=== PATIENT | female | born 1950 | race Caucasian/White ===

== ENCOUNTER 2017-11-17 09:00 | Day surgery (SDC) | payer OTHER ==
[~2017-11-17 09:00] MED LIST: ALBU90OI INH; ALLO100 PO; AMIT25 PO; AMOCLA500 PO; ASPI81CH PO; ASPI81EC PO; ATOR40TA PO; Ativan1 MG PO; CIPR500 PO; CLON.5 PO; CLON1 PO; CODBUTACEC PO; CODGUAEL PO; COLC.6 PO; Cephalexin500 MG PO; Cyclobenzaprine5 MG PO; DOCU100 PO; ERGO400 PO; FENO48 PO; FISH1000 PO; HYDACE10B PO; HYDACE5 PO; HYDACE5325 PO; HYDCHL25 PO; IBUP800 PO; INDO50 PO; ISOMON30 PO; LISI10 PO; METO25ER PO; METO50 PO; MULVITA PO; MULVITMIND PO; Mucinex600 MG PO; NITR.3SL SL; Norco 5-325 Ta1 EACH PO; OLAN7.5 PO; Omeprazole20 M1 PO; POTCHL20ER PO; PRAV20 PO; Prednisone20 MG PO; RANI150 PO; RXLORA1 PO; RXPHEN200 PO; SULTRIDS PO; TRAM50 PO; Zithromax250 MG PO; Zofran Odt4 MG SL
[2018-03-14] MEDS ORDERED: CEPH500 PO (20:35)
[2018-03-14] MEDS ORDERED: Zofran Odt4 MG PO (20:41)
== END 2017-11-17 11:58 | disposition home or self-care (01) ==
LOC: WOUND 09:00
PROC: 2W1RX6Z Compression of Left Lower Leg using Pressure Dressing (ICD-10-PCS; principal; 2017-11-17)
DX: Z48.00 Encounter for change or removal of nonsurgical wound dressing (principal); S81.809A Unspecified open wound, unspecified lower leg, initial encounter; I10 Essential (primary) hypertension; I73.9 Peripheral vascular disease, unspecified
CPT/HCPCS: G0463

== ENCOUNTER 2017-11-24 09:00 | Day surgery (SDC) | payer OTHER ==
[2018-03-14] MEDS ORDERED: CEPH500 PO (20:35)
[2018-03-14] MEDS ORDERED: Zofran Odt4 MG PO (20:41)
== END 2017-11-24 23:00 | disposition home or self-care (01) ==
LOC: WOUND 09:00
PROC: 2W1RX6Z Compression of Left Lower Leg using Pressure Dressing (ICD-10-PCS; principal; 2017-11-24)
DX: Z48.00 Encounter for change or removal of nonsurgical wound dressing (principal); S81.809A Unspecified open wound, unspecified lower leg, initial encounter; I73.9 Peripheral vascular disease, unspecified; L97.822 Non-pressure chronic ulcer of other part of left lower leg with fat layer exposed; I10 Essential (primary) hypertension
CPT/HCPCS: G0463

== ENCOUNTER 2017-11-26 11:33 | Day surgery (SDC) | payer OTHER ==
[2018-03-14] MEDS ORDERED: CEPH500 PO (20:35)
[2018-03-14] MEDS ORDERED: Zofran Odt4 MG PO (20:41)
== END 2017-11-26 12:35 | disposition home or self-care (01) ==
LOC: WOUND 11:33
PROC: 2W1RX6Z Compression of Left Lower Leg using Pressure Dressing (ICD-10-PCS; principal; 2017-11-26)
DX: Z48.00 Encounter for change or removal of nonsurgical wound dressing (principal); S81.809A Unspecified open wound, unspecified lower leg, initial encounter; I10 Essential (primary) hypertension; I73.9 Peripheral vascular disease, unspecified

== ENCOUNTER 2017-12-01 09:00 | Day surgery (SDC) | payer OTHER ==
[2018-03-14] MEDS ORDERED: CEPH500 PO (20:35)
[2018-03-14] MEDS ORDERED: Zofran Odt4 MG PO (20:41)
== END 2017-12-01 14:53 | disposition home or self-care (01) ==
LOC: WOUND 09:00
PROC: 2W1RX6Z Compression of Left Lower Leg using Pressure Dressing (ICD-10-PCS; principal; 2017-12-01)
DX: Z48.00 Encounter for change or removal of nonsurgical wound dressing (principal); S81.809A Unspecified open wound, unspecified lower leg, initial encounter; I10 Essential (primary) hypertension; I73.9 Peripheral vascular disease, unspecified

== ENCOUNTER 2017-12-08 00:26 | Day surgery (SDC) | payer OTHER ==
[2018-03-14] MEDS ORDERED: CEPH500 PO (20:35)
[2018-03-14] MEDS ORDERED: Zofran Odt4 MG PO (20:41)
== END 2017-12-08 10:02 | disposition home or self-care (01) ==
LOC: WOUND 00:26
DX: Z48.00 Encounter for change or removal of nonsurgical wound dressing (principal); S81.809A Unspecified open wound, unspecified lower leg, initial encounter; I10 Essential (primary) hypertension; I73.9 Peripheral vascular disease, unspecified

== ENCOUNTER 2017-12-15 00:36 | Day surgery (SDC) | payer OTHER ==
[2018-03-14] MEDS ORDERED: CEPH500 PO (20:35)
[2018-03-14] MEDS ORDERED: Zofran Odt4 MG PO (20:41)
== END 2017-12-15 09:24 | disposition home or self-care (01) ==
LOC: WOUND 00:36
DX: Z48.00 Encounter for change or removal of nonsurgical wound dressing (principal); S81.809A Unspecified open wound, unspecified lower leg, initial encounter; I10 Essential (primary) hypertension; I73.9 Peripheral vascular disease, unspecified

== ENCOUNTER 2017-12-20 00:05 | Day surgery (SDC) | payer OTHER ==
[2017-12-20] MEDS ORDERED: LEVO750 PO (11:24)
[2018-03-14] MEDS ORDERED: CEPH500 PO (20:35)
[2018-03-14] MEDS ORDERED: Zofran Odt4 MG PO (20:41)
== END 2017-12-20 09:34 | disposition home or self-care (01) ==
LOC: WOUND 00:05
DX: Z48.00 Encounter for change or removal of nonsurgical wound dressing (principal); S81.809A Unspecified open wound, unspecified lower leg, initial encounter; I10 Essential (primary) hypertension; I73.9 Peripheral vascular disease, unspecified
CPT/HCPCS: G0463

== ENCOUNTER 2017-12-20 09:57 | Emergency (ER) | payer OTHER ==
[~2017-12-20] VITALS: Ht 157.5 cm; Wt 58.5 kg
[2017-12-20 11:05] LABS: Influenza A Negative (NEGATIVE); Influenza B Negative (NEGATIVE)
[2017-12-20] MEDS ORDERED: LEVO750 PO (11:24)
[2018-03-14] MEDS ORDERED: CEPH500 PO (20:35)
[2018-03-14] MEDS ORDERED: Zofran Odt4 MG PO (20:41)
== END 2017-12-20 11:27 | disposition home or self-care (01) ==
LOC: ER 09:57
PROVIDERS: Physician Assistant
DX: J44.1 Chronic obstructive pulmonary disease with (acute) exacerbation (principal); J18.9 Pneumonia, unspecified organism; I10 Essential (primary) hypertension; E78.00 Pure hypercholesterolemia, unspecified; F41.9 Anxiety disorder, unspecified; Z79.82 Long term (current) use of aspirin; Z79.899 Other long term (current) drug therapy; Z87.891 Personal history of nicotine dependence
CPT/HCPCS: 71046; 87804; 99283

== ENCOUNTER 2017-12-27 00:06 | Day surgery (SDC) | payer OTHER ==
[~2017-12-27 00:06] MED LIST changes: +LEVO750 PO
[2018-03-14] MEDS ORDERED: CEPH500 PO (20:35)
[2018-03-14] MEDS ORDERED: Zofran Odt4 MG PO (20:41)
== END 2017-12-27 09:41 | disposition home or self-care (01) ==
LOC: WOUND 00:06
PROC: 2W1RX6Z Compression of Left Lower Leg using Pressure Dressing (ICD-10-PCS; principal; 2017-12-27)
DX: Z48.00 Encounter for change or removal of nonsurgical wound dressing (principal); S81.809A Unspecified open wound, unspecified lower leg, initial encounter; I10 Essential (primary) hypertension; I73.9 Peripheral vascular disease, unspecified
CPT/HCPCS: G0463

== ENCOUNTER 2018-01-05 00:12 | Day surgery (SDC) | payer OTHER ==
[2018-03-14] MEDS ORDERED: CEPH500 PO (20:35)
[2018-03-14] MEDS ORDERED: Zofran Odt4 MG PO (20:41)
== END 2018-01-05 22:50 | disposition home or self-care (01) ==
LOC: WOUND 00:12
PROC: 2W1RX6Z Compression of Left Lower Leg using Pressure Dressing (ICD-10-PCS; principal; 2018-01-05)
DX: Z48.00 Encounter for change or removal of nonsurgical wound dressing (principal); S81.809A Unspecified open wound, unspecified lower leg, initial encounter; I10 Essential (primary) hypertension; I73.9 Peripheral vascular disease, unspecified
CPT/HCPCS: G0463

== ENCOUNTER 2018-01-12 09:08 | Day surgery (SDC) | payer OTHER ==
[2018-03-14] MEDS ORDERED: CEPH500 PO (20:35)
[2018-03-14] MEDS ORDERED: Zofran Odt4 MG PO (20:41)
== END 2018-01-12 22:38 | disposition home or self-care (01) ==
LOC: WOUND 09:08
PROC: 2W1RX6Z Compression of Left Lower Leg using Pressure Dressing (ICD-10-PCS; principal; 2018-01-12)
DX: S81.802A Unspecified open wound, left lower leg, initial encounter (principal); I10 Essential (primary) hypertension; I73.9 Peripheral vascular disease, unspecified
CPT/HCPCS: G0463

== ENCOUNTER 2018-01-14 00:06 | Day surgery (SDC) | payer OTHER ==
[2018-03-14] MEDS ORDERED: CEPH500 PO (20:35)
[2018-03-14] MEDS ORDERED: Zofran Odt4 MG PO (20:41)
== END 2018-01-14 23:09 | disposition home or self-care (01) ==
LOC: WOUND 00:06
PROC: 2W1MX6Z Compression of Left Lower Extremity using Pressure Dressing (ICD-10-PCS; principal; 2018-01-14)
DX: S81.802A Unspecified open wound, left lower leg, initial encounter (principal); I10 Essential (primary) hypertension; I73.9 Peripheral vascular disease, unspecified

== ENCOUNTER 2018-01-19 00:10 | Day surgery (SDC) | payer OTHER ==
[2018-03-14] MEDS ORDERED: CEPH500 PO (20:35)
[2018-03-14] MEDS ORDERED: Zofran Odt4 MG PO (20:41)
== END 2018-01-19 22:56 | disposition home or self-care (01) ==
LOC: WOUND 00:10
PROC: 2W1RX6Z Compression of Left Lower Leg using Pressure Dressing (ICD-10-PCS; principal; 2018-01-19)
DX: S81.802A Unspecified open wound, left lower leg, initial encounter (principal); I10 Essential (primary) hypertension; I73.9 Peripheral vascular disease, unspecified

== ENCOUNTER 2018-01-26 09:40 | Day surgery (SDC) | payer OTHER ==
[2018-03-14] MEDS ORDERED: CEPH500 PO (20:35)
[2018-03-14] MEDS ORDERED: Zofran Odt4 MG PO (20:41)
== END 2018-01-26 16:49 | disposition home or self-care (01) ==
LOC: WOUND 09:40
PROC: 2W1RX6Z Compression of Left Lower Leg using Pressure Dressing (ICD-10-PCS; principal; 2018-01-26)
DX: S81.802A Unspecified open wound, left lower leg, initial encounter (principal); I10 Essential (primary) hypertension; I73.9 Peripheral vascular disease, unspecified

== ENCOUNTER 2018-02-04 00:14 | Day surgery (SDC) | payer OTHER ==
[2018-03-14] MEDS ORDERED: CEPH500 PO (20:35)
[2018-03-14] MEDS ORDERED: Zofran Odt4 MG PO (20:41)
== END 2018-02-04 15:54 | disposition home or self-care (01) ==
LOC: WOUND 00:14
PROC: 2W1RX6Z Compression of Left Lower Leg using Pressure Dressing (ICD-10-PCS; principal; 2018-02-04)
PROC: 0H5LXZZ Destruction of Left Lower Leg Skin, External Approach (ICD-10-PCS; principal; 2018-02-04)
DX: Z48.00 Encounter for change or removal of nonsurgical wound dressing (principal); L97.822 Non-pressure chronic ulcer of other part of left lower leg with fat layer exposed; I10 Essential (primary) hypertension; I73.9 Peripheral vascular disease, unspecified
CPT/HCPCS: G0463

== ENCOUNTER 2018-02-09 10:43 | Day surgery (SDC) | payer OTHER | END 2018-02-09 12:09 | disposition home or self-care (01) | LOC: WOUND 10:43 | PROC: 2W1RX6Z Compression of Left Lower Leg using Pressure Dressing (ICD-10-PCS; principal; 2018-02-09) | DX: S81.802A Unspecified open wound, left lower leg, initial encounter (principal); I10 Essential (primary) hypertension; I73.9 Peripheral vascular disease, unspecified | CPT/HCPCS: G0463 ==

== ENCOUNTER 2018-02-17 01:18 | Day surgery (SDC) | payer OTHER | END 2018-02-17 22:51 | disposition home or self-care (01) | LOC: WOUND 01:18 | PROC: 2W1RX6Z Compression of Left Lower Leg using Pressure Dressing (ICD-10-PCS; principal; 2018-02-17) | DX: S81.802A Unspecified open wound, left lower leg, initial encounter (principal); I10 Essential (primary) hypertension; I73.9 Peripheral vascular disease, unspecified | CPT/HCPCS: G0463 ==

== ENCOUNTER 2018-02-22 07:57 | Day surgery (SDC) | payer OTHER | END 2018-02-22 08:54 | disposition home or self-care (01) | LOC: WOUND 07:57 | PROC: 2W1RX6Z Compression of Left Lower Leg using Pressure Dressing (ICD-10-PCS; principal; 2018-02-22) | DX: S81.802A Unspecified open wound, left lower leg, initial encounter (principal); I10 Essential (primary) hypertension; I73.9 Peripheral vascular disease, unspecified | CPT/HCPCS: G0463 ==

== ENCOUNTER 2018-03-01 00:23 | Day surgery (SDC) | payer OTHER | END 2018-03-01 23:04 | disposition home or self-care (01) | LOC: WOUND 00:23 | PROC: 2W1RX6Z Compression of Left Lower Leg using Pressure Dressing (ICD-10-PCS; principal; 2018-03-01) | DX: S81.802A Unspecified open wound, left lower leg, initial encounter (principal) ==

== ENCOUNTER 2018-03-10 13:10 | Day surgery (SDC) | payer OTHER ==
[2018-03-14] MEDS ORDERED: CEPH500 PO (20:35)
[2018-03-14] MEDS ORDERED: Zofran Odt4 MG PO (20:41)
== END 2018-03-10 23:15 | disposition home or self-care (01) ==
LOC: WOUND 13:10
PROC: 2W1RX6Z Compression of Left Lower Leg using Pressure Dressing (ICD-10-PCS; principal; 2018-03-10)
DX: S81.802A Unspecified open wound, left lower leg, initial encounter (principal); I10 Essential (primary) hypertension; I73.9 Peripheral vascular disease, unspecified
CPT/HCPCS: G0463

== ENCOUNTER 2018-03-17 09:15 | Day surgery (SDC) | payer OTHER ==
[~2018-03-17 09:15] MED LIST changes: +CEPH500 PO; +Zofran Odt4 MG PO
== END 2018-03-17 11:38 | disposition home or self-care (01) ==
LOC: WOUND 09:15
PROC: 2W1RX6Z Compression of Left Lower Leg using Pressure Dressing (ICD-10-PCS; principal; 2018-03-17)
DX: S81.802A Unspecified open wound, left lower leg, initial encounter (principal); I10 Essential (primary) hypertension; I73.9 Peripheral vascular disease, unspecified
CPT/HCPCS: G0463

== ENCOUNTER 2018-03-22 00:29 | Day surgery (SDC) | payer OTHER | END 2018-03-22 22:48 | disposition home or self-care (01) | LOC: WOUND 00:29 | PROC: 2W1RX6Z Compression of Left Lower Leg using Pressure Dressing (ICD-10-PCS; principal; 2018-03-22) | DX: S81.802A Unspecified open wound, left lower leg, initial encounter (principal); I10 Essential (primary) hypertension; I73.9 Peripheral vascular disease, unspecified | CPT/HCPCS: G0463 ==

== ENCOUNTER 2018-03-29 00:35 | Day surgery (SDC) | payer OTHER | END 2018-03-29 10:12 | disposition home or self-care (01) | LOC: WOUND 00:35 | PROC: 2W1RX6Z Compression of Left Lower Leg using Pressure Dressing (ICD-10-PCS; principal; 2018-03-29) | DX: S81.802A Unspecified open wound, left lower leg, initial encounter (principal); I10 Essential (primary) hypertension; I73.9 Peripheral vascular disease, unspecified | CPT/HCPCS: G0463 ==

== ENCOUNTER 2018-04-04 21:41 | Emergency (ER) | payer OTHER ==
[~2018-04-04] VITALS: Ht 157.5 cm; Wt 54.4 kg
[2018-04-04 22:02] LABS: BASOPHILS ABSOLUTE AUTO 0.03 K/mm3 (0.00-0.23); BASOPHILS PERCENT AUTO 0 % (0-2); EOSINOPHILS ABSOLUTE AUTO 0.31 K/mm3 (0.00-0.68); EOSINOPHILS PERCENT AUTO 4 % (0-6); Hematocrit 34.7 % (33.0-51.0); Hemoglobin 11.2 g/dL (11.5-16.0); IMMATURE GRAN ABSOLUTE AUTO 0.03 K/mm3 (0.00-0.10); IMMATURE GRAN PERCENT AUTO 0 % (0-1); LYMPHOCYTES ABSOLUTE AUTO 2.05 K/mm3 (0.84-5.20); LYMPHOCYTES PERCENT AUTO 24 % (21-46); MONOCYTES ABSOLUTE AUTO 0.59 K/mm3 (0.16-1.47); MONOCYTES PERCENT AUTO 7 % (4-13); Mean Corpuscular HGB 32.7 pg (26.0-34.0); Mean Corpuscular HGB Conc 32.3 g/dL (31.5-36.5); Mean Corpuscular Volume 102 fL (80-100); Mean Platelet Volume 8.7 fL (9.1-12.4); NEUTROPHILS ABSOLUTE AUTO 5.67 K/mm3 (1.96-9.15); NEUTROPHILS PERCENT AUTO 65 % (41-73); Platelet Count 348 K/mm3 (150-400); RDW Coefficient Variation 19.3 % (11.7-14.2); RDW Standard Deviation 72.3 fL (35.1-46.3); Red Blood Cell Count 3.42 M/mm3 (3.80-5.20); White Blood Cell Count 8.68 K/mm3 (4.00-11.30)
[2018-04-04 22:21] LABS: Albumin, Blood 1.8 g/dL (3.4-5.0); Albumin/Globulin Ratio 0.5 (0.8-1.8); Bilirubin, Total 0.4 mg/dL (0.1-1.0); Bun/Creatinine Ratio 5.8 (12.0-20.0); Calcium, Blood 7.5 mg/dL (8.5-10.1); Creatinine, Blood 1.2 mg/dL (0.40-1.00); Globulin, Blood 3.3 g/dL (2.2-4.0); Potassium, Blood 3.1 mmol/L (3.5-5.5); Total Protein, Blood 5.1 g/dL (6.4-8.2)
== END 2018-04-04 23:33 | disposition home or self-care (01) ==
LOC: ER 21:41
PROVIDERS: Emergency Medicine
DX: R10.9 Unspecified abdominal pain (principal); G89.29 Other chronic pain; R11.2 Nausea with vomiting, unspecified; I10 Essential (primary) hypertension; E78.00 Pure hypercholesterolemia, unspecified; F41.9 Anxiety disorder, unspecified; Z79.899 Other long term (current) drug therapy; Z79.82 Long term (current) use of aspirin; Z87.891 Personal history of nicotine dependence
CPT/HCPCS: 36415; 80053; 83690; 85025; 96374; 99283; J2405

== ENCOUNTER 2018-04-12 08:05 | Day surgery (SDC) | payer OTHER | END 2018-04-12 09:25 | disposition home or self-care (01) | LOC: WOUND 08:05 | PROC: 2W1RX6Z Compression of Left Lower Leg using Pressure Dressing (ICD-10-PCS; principal; 2018-04-12) | DX: S81.802A Unspecified open wound, left lower leg, initial encounter (principal); L97.822 Non-pressure chronic ulcer of other part of left lower leg with fat layer exposed | CPT/HCPCS: G0463 ==

== ENCOUNTER 2018-04-19 10:15 | Day surgery (SDC) | payer OTHER | END 2018-04-19 23:08 | disposition home or self-care (01) | LOC: WOUND 10:15 | PROC: 2W1RX6Z Compression of Left Lower Leg using Pressure Dressing (ICD-10-PCS; principal; 2018-04-19) | DX: S81.802A Unspecified open wound, left lower leg, initial encounter (principal); L08.9 Local infection of the skin and subcutaneous tissue, unspecified; L97.822 Non-pressure chronic ulcer of other part of left lower leg with fat layer exposed; I10 Essential (primary) hypertension; I73.9 Peripheral vascular disease, unspecified | CPT/HCPCS: G0463 ==

== ENCOUNTER 2018-04-25 14:42 | Emergency (ER) | payer OTHER ==
[~2018-04-25] VITALS: Ht 157.5 cm; Wt 54.4 kg
[2018-04-25 15:49] LABS: BASOPHILS ABSOLUTE AUTO 0.03 K/mm3 (0.00-0.23); BASOPHILS PERCENT AUTO 0 % (0-2); EOSINOPHILS ABSOLUTE AUTO 0.02 K/mm3 (0.00-0.68); EOSINOPHILS PERCENT AUTO 0 % (0-6); Hematocrit 34.6 % (33.0-51.0); Hemoglobin 11.5 g/dL (11.5-16.0); IMMATURE GRAN ABSOLUTE AUTO 0.02 K/mm3 (0.00-0.10); IMMATURE GRAN PERCENT AUTO 0 % (0-1); LYMPHOCYTES ABSOLUTE AUTO 1.86 K/mm3 (0.84-5.20); LYMPHOCYTES PERCENT AUTO 22 % (21-46); MONOCYTES ABSOLUTE AUTO 0.44 K/mm3 (0.16-1.47); MONOCYTES PERCENT AUTO 5 % (4-13); Mean Corpuscular HGB 33.4 pg (26.0-34.0); Mean Corpuscular HGB Conc 33.2 g/dL (31.5-36.5); Mean Corpuscular Volume 101 fL (80-100); NEUTROPHILS ABSOLUTE AUTO 6.26 K/mm3 (1.96-9.15); NEUTROPHILS PERCENT AUTO 73 % (41-73); Platelet Count 449 K/mm3 (150-400); RDW Coefficient Variation 16.4 % (11.7-14.2); RDW Standard Deviation 61.2 fL (35.1-46.3); Red Blood Cell Count 3.44 M/mm3 (3.80-5.20); White Blood Cell Count 8.63 K/mm3 (4.00-11.30)
[2018-04-25 15:59] LABS: Albumin, Blood 1.9 g/dL (3.4-5.0); Albumin/Globulin Ratio 0.6 (0.8-1.8); Bilirubin, Total 0.4 mg/dL (0.1-1.0); Bun/Creatinine Ratio 9.2 (12.0-20.0); Calcium, Blood 7.9 mg/dL (8.5-10.1); Creatinine, Blood 1.2 mg/dL (0.40-1.00); Globulin, Blood 3.3 g/dL (2.2-4.0); Potassium, Blood 3.1 mmol/L (3.5-5.5); Total Protein, Blood 5.2 g/dL (6.4-8.2)
[2018-04-25] MEDS ORDERED: Protonix40 MG PO (19:35)
[2018-04-25] MEDS ORDERED: Zofran4 MG PO (19:35)
[2018-04-25] MEDS ORDERED: SUCR1 PO (19:35)
== END 2018-04-25 20:20 | disposition home or self-care (01) ==
LOC: ER 14:42
PROVIDERS: Emergency Medicine
DX: K30 Functional dyspepsia (principal); R11.2 Nausea with vomiting, unspecified; Z79.82 Long term (current) use of aspirin; Z79.899 Other long term (current) drug therapy; I10 Essential (primary) hypertension; E78.00 Pure hypercholesterolemia, unspecified; F41.9 Anxiety disorder, unspecified; Z87.891 Personal history of nicotine dependence
CPT/HCPCS: 36415; 74177; 80053; 82607; 82746; 83690; 85025; 87077; 87086; 87186; 93005; 93010; 96374; 96375; 99284; C9113; J2405; J3490; J7120; Q9967

== ENCOUNTER 2018-05-04 00:13 | Day surgery (SDC) | payer OTHER ==
[~2018-05-04 00:13] MED LIST changes: +Protonix40 MG PO; +SUCR1 PO; +Zofran4 MG PO
== END 2018-05-04 23:22 | disposition home or self-care (01) ==
LOC: WOUND 00:13
PROC: 2W1RX6Z Compression of Left Lower Leg using Pressure Dressing (ICD-10-PCS; principal; 2018-05-04)
DX: S81.802A Unspecified open wound, left lower leg, initial encounter (principal); L97.828 Non-pressure chronic ulcer of other part of left lower leg with other specified severity; I10 Essential (primary) hypertension; I73.9 Peripheral vascular disease, unspecified
CPT/HCPCS: G0463

== ENCOUNTER 2018-05-17 08:30 | Day surgery (SDC) | payer OTHER | END 2018-05-17 16:24 | disposition home or self-care (01) | LOC: WOUND 08:30 | PROC: 2W1RX6Z Compression of Left Lower Leg using Pressure Dressing (ICD-10-PCS; principal; 2018-05-17) | DX: Z48.00 Encounter for change or removal of nonsurgical wound dressing (principal); S81.809A Unspecified open wound, unspecified lower leg, initial encounter; I10 Essential (primary) hypertension; I73.9 Peripheral vascular disease, unspecified ==

== ENCOUNTER 2018-05-27 09:30 | Day surgery (SDC) | payer OTHER | END 2018-05-27 11:16 | disposition home or self-care (01) | LOC: WOUND 09:30 | DX: S81.802A Unspecified open wound, left lower leg, initial encounter (principal); I10 Essential (primary) hypertension; I73.9 Peripheral vascular disease, unspecified; R60.0 Localized edema | CPT/HCPCS: G0463 ==

== ENCOUNTER 2018-06-01 08:30 | Day surgery (SDC) | payer OTHER | END 2018-06-01 09:25 | disposition home or self-care (01) | LOC: WOUND 08:30 | DX: Z48.00 Encounter for change or removal of nonsurgical wound dressing (principal); S81.802A Unspecified open wound, left lower leg, initial encounter; I10 Essential (primary) hypertension; I73.9 Peripheral vascular disease, unspecified | CPT/HCPCS: G0463 ==

== ENCOUNTER → 2018-06-14 | Outpatient (CLI) | payer OTHER ==
[2018-06-15 15:20] LABS: Appearance, Urine Cloudy (Clear); Bilirubin, Urine Neg (Neg); Blood, Urine 2+ (Neg); Color, Urine Yellow (P-Yellow); Glucose Qualitative, Urine Neg (Neg); Ketones, Urine Neg (Neg); Leukocyte Esterase, Urine 3+ (Neg); Nitrite, Urine Pos (Neg); Protein, Urine 2+ (Neg); Specific Gravity, Urine 1.015 (1.003-1.022); Urobilinogen, Urine NORM (Normal)
[2018-06-15 15:33] LABS: Bacteria Many /hpf; Squamous Epithelial Cells Few /hpf (Few); White Blood Cells, Urine 25-50 /hpf (0-5)
[2018-06-15 15:34] LABS: Calcium Oxalate Crystals Mod /hpf
== END ==
LOC: LAB 15:05 → LAB SHORT 15:05
PROVIDERS: Nurse Practitioner Primary Care
DX: R31.9 Hematuria, unspecified (principal); Z87.440 Personal history of urinary (tract) infections
CPT/HCPCS: 81001; 87077; 87086; 87186

== ENCOUNTER 2018-06-22 00:22 | Day surgery (SDC) | payer OTHER | END 2018-06-22 09:35 | disposition home or self-care (01) | LOC: ATC 00:22 | DX: L97.909 Non-pressure chronic ulcer of unspecified part of unspecified lower leg with unspecified severity (principal); I12.9 Hypertensive chronic kidney disease with stage 1 through stage 4 chronic kidney disease, or unspecified chronic kidney disease; N18.3 Chronic kidney disease, stage 3 (moderate); I25.10 Atherosclerotic heart disease of native coronary artery without angina pectoris | CPT/HCPCS: 99211 ==

== ENCOUNTER 2020-08-13 17:49 | Inpatient (IN) | payer OTHER ==
[~2020-08-13] VITALS: Ht 157.5 cm; Wt 54.3 kg
[~2020-08-13 17:49] MED LIST changes: +Keflex500 MG PO
[2020-08-13 19:44] LABS: BASOPHILS ABSOLUTE AUTO 0.03 K/mm3 (0.00-0.23); BASOPHILS PERCENT AUTO 0 % (0-2); EOSINOPHILS ABSOLUTE AUTO 0.13 K/mm3 (0.00-0.68); EOSINOPHILS PERCENT AUTO 1 % (0-6); Hematocrit 39.2 % (33.0-51.0); IMMATURE GRAN ABSOLUTE AUTO 0.05 K/mm3 (0.00-0.10); IMMATURE GRAN PERCENT AUTO 0 % (0-1); LYMPHOCYTES ABSOLUTE AUTO 1.58 K/mm3 (0.84-5.20); LYMPHOCYTES PERCENT AUTO 12 % (21-46); MONOCYTES ABSOLUTE AUTO 1.04 K/mm3 (0.16-1.47); MONOCYTES PERCENT AUTO 8 % (4-13); Mean Corpuscular HGB 27.1 pg (26.0-34.0); Mean Corpuscular HGB Conc 30.6 g/dL (31.5-36.5); Mean Corpuscular Volume 89 fL (80-100); Mean Platelet Volume 9.5 fL (9.1-12.4); NEUTROPHILS ABSOLUTE AUTO 10.04 K/mm3 (1.96-9.15); NEUTROPHILS PERCENT AUTO 78 % (41-73); Platelet Count 454 K/mm3 (150-400); RDW Coefficient Variation 18.3 % (11.7-14.2); RDW Standard Deviation 59.9 fL (35.1-46.3); Red Blood Cell Count 4.42 M/mm3 (3.80-5.20); White Blood Cell Count 12.87 K/mm3 (4.00-11.30)
[2020-08-13 20:05] LABS: Albumin, Blood 2.2 g/dL (3.4-5.0); Albumin/Globulin Ratio 0.5 (0.8-1.8); Bilirubin, Total 0.4 mg/dL (0.1-1.0); Bun/Creatinine Ratio 9.5 (12.0-20.0); Calcium, Blood 8.9 mg/dL (8.5-10.1); Creatinine, Blood 1.05 mg/dL (0.40-1.00); Globulin, Blood 4.2 g/dL (2.2-4.0); Potassium, Blood 3.6 mmol/L (3.5-5.5); Total Protein, Blood 6.4 g/dL (6.4-8.2)
[2020-08-13 20:34] LABS: Source, Urine Clean Catch
[2020-08-13 20:37] LABS: Bilirubin, Urine Neg (Neg); Blood, Urine 1+ (Neg); Glucose Qualitative, Urine Neg (Neg); Ketones, Urine 1+ (Neg); Leukocyte Esterase, Urine 2+ (Neg); Nitrite, Urine Neg (Neg); Protein, Urine 2+ (Neg); Urobilinogen, Urine 1+ (Normal)
[2020-08-13 20:44] LABS: Appearance, Urine Hazy (Clear); Color, Urine Yellow (P-Yellow)
[2020-08-13 20:46] LABS: Bacteria Many /hpf; Red Blood Cells, Urine 0-2 /hpf (0-2); Squamous Epithelial Cells Few /hpf (Few); White Blood Cells, Urine 25-50 /hpf (0-5)
[2020-08-14] MEDS ORDERED: FEROSUL325 M1 PO (00:09)
--- NOTE | 2020-08-14 00:10 | NUR ---
PT ARRIVED TO ROOM 208 FROM ER. PT ALERT, REP MILD DIZZINESS WHEN FIRST SITTING UP TO SOB. PT C/O RIGHT FLANK/UPPER ABD PAIN X1 DAY. PT DENIES N/V. PT ASSISTED TO BATHROOM. PT DUMPED HAT BEFORE STAFF COULD MEASURE. URINE NOTED STRONG SMELLING. PT EDUCATED ON MEASURING I/O. ABX COMPLETED, IVF STARTED PER ORDERS. PT ORIENTED TO ROOM/CALL LIGHT. PT NPO PER ORDERS.
--- NOTE | 2020-08-14 01:36 | NUR ---
FALLS: PT REP MULTIPLE RECENT FALLS R/T UNSTEADY GAIT. PT REPORTS SHE DOES NOT USE ASSISTIVE DEVICES TO AMBULATE. PT ENC TO USE FWW FOR SAFETY.
[2020-08-14 02:22] LABS: Adenovirus Not Detected (NOT DETECT); Bordetella pertussis Not Detected (NOT DETECT); Chlamydophila pneumoniae Not Detected (NOT DETECT); Coronavirus 229E Not Detected (NOT DETECT); Coronavirus HKU1 Not Detected (NOT DETECT); Coronavirus NL63 Not Detected (NOT DETECT); Coronavirus OC43 Not Detected (NOT DETECT); Human Metapneumovirus Not Detected (NOT DETECT); Human Rhinovirus/Enterovirus Not Detected (NOT DETECT); Influenza A/2009-H1 Not Detected (NOT DETECT); Influenza A/H1 Not Detected (NOT DETECT); Influenza A/H3 Not Detected (NOT DETECT); Influenza B Not Detected (NOT DETECT); Mycoplasma pneumoniae Not Detected (NOT DETECT); Parainfluenza Virus 1 Not Detected (NOT DETECT); Parainfluenza Virus 2 Not Detected (NOT DETECT); Parainfluenza Virus 3 Not Detected (NOT DETECT); Parainfluenza Virus 4 Not Detected (NOT DETECT); Respiratory Syncytial Virus Not Detected (NOT DETECT); SARS-Cov-2 (COVID-19), BioFire Not Detected (NOT DETECT)
--- NOTE | 2020-08-14 05:46 | NUR ---
PT NEW ADMIT THIS SHIFT FOR ACUTE KIRIT. PT VSS, SATS >90% ON RA. PT C/O RIGHT FLANK/RUQ PAIN, MED FOR PAIN X1 W/REP RELIEF. PT HAD NO C/O N/V, HAS BEEN NPO, IVF RUNNING PER ORDERS. PT REP MULTIPLE FALLS RECENTLY R/T UNSTEADY BALANCE. PT ENCOURAGED TO USE FWW WHEN AMBULATING.
[2020-08-14 07:37] LABS: BASOPHILS ABSOLUTE AUTO 0.02 K/mm3 (0.00-0.23); BASOPHILS PERCENT AUTO 0 % (0-2); EOSINOPHILS ABSOLUTE AUTO 0.24 K/mm3 (0.00-0.68); EOSINOPHILS PERCENT AUTO 2 % (0-6); Hematocrit 35.3 % (33.0-51.0); Hemoglobin 10.5 g/dL (11.5-16.0); IMMATURE GRAN ABSOLUTE AUTO 0.05 K/mm3 (0.00-0.10); IMMATURE GRAN PERCENT AUTO 1 % (0-1); LYMPHOCYTES ABSOLUTE AUTO 1.41 K/mm3 (0.84-5.20); LYMPHOCYTES PERCENT AUTO 14 % (21-46); MONOCYTES PERCENT AUTO 11 % (4-13); Mean Corpuscular HGB 26.9 pg (26.0-34.0); Mean Corpuscular HGB Conc 29.7 g/dL (31.5-36.5); Mean Corpuscular Volume 90 fL (80-100); Mean Platelet Volume 9.3 fL (9.1-12.4); NEUTROPHILS ABSOLUTE AUTO 7.36 K/mm3 (1.96-9.15); NEUTROPHILS PERCENT AUTO 72 % (41-73); Platelet Count 393 K/mm3 (150-400); RDW Coefficient Variation 18.2 % (11.7-14.2); RDW Standard Deviation 60.8 fL (35.1-46.3); Red Blood Cell Count 3.91 M/mm3 (3.80-5.20); White Blood Cell Count 10.18 K/mm3 (4.00-11.30)
[2020-08-14 08:04] LABS: Anion Gap 7 mmol/L (6-16); Blood Urea Nitrogen 9 mg/dL (8-24); Bun/Creatinine Ratio 9.7 (12.0-20.0); CO2, Blood 25 mmol/L (21-32); Calcium, Blood 7.7 mg/dL (8.5-10.1); Chloride, Blood 113 mmol/L (98-108); Creatinine, Blood 0.93 mg/dL (0.40-1.00); Glomerular Filtration Rate >60 (60-); Glucose, Blood 90 mg/dL (70-99); Potassium, Blood 3.4 mmol/L (3.5-5.5); Sodium, Blood 145 mmol/L (136-145)
--- NOTE | 2020-08-14 10:51 | NUR ---
4426 PT ASKING IF SHE HAS HAD HER SURGERY YET. PT ORIENTED TI TIME PLACE AND PERSON BUT TELLS ME HER MEMORY "IS A LITTLE FUZZY"
--- NOTE | 2020-08-14 13:14 | NUR ---
to day surgery per cart
--- NOTE | 2020-08-14 13:28 | NUR ---
PATIENT BROUGHT TO [facility] VSS ADMISSION TO UNIT STARTED. History, Chart, Medications and Allergies reviewed before start of procedure.Lungs clear T/O to Auscultation. Patient confirms NPO status and agrees with scheduled surgery.
--- NOTE | 2020-08-14 13:29 | NUR ---
HAS SEEN PATINET PRIOR TO PATIENT BEING BROUGHT TO [facility].
--- NOTE | 2020-08-14 17:07 | NUR ---
return to room post op. abd dressings clean dry and intact x4. derick drain with small amount bloody drainage. pt reports pain is well controlled at this time. pt instructed on TCDB
--- NOTE | 2020-08-14 17:31 | NUR ---
summary PT REPORTS 8-9/10 PAIN AFTER MOVING SELF IN BED, REQUEST PO PILLS NOT IV MEDS AT THIS TIME. PT TAKING PO FLUIDS AND DIMPLE CRACKERS WITHOUT NAUSEA.BLANKET FROM WARMER PLACED ON NECK PT STATES FEELS LIKE SHE HAS A KINK IN IT
--- NOTE | 2020-08-15 02:56 | NUR ---
PT PULLED RUMA DRAIN AT APPROX 0245. TUBE INTACT. SITE COVERED WITH GAUZE.
--- NOTE | 2020-08-15 04:03 | NUR ---
SHIFT SUMMARY PT HAS BEEN ALERT, ORIENTED X3 BUT FORGETFUL. BED ALARM ON DURING THE SHIFT. PT HAS BEEN SLEEPING MOST OF THE SHIFT. TOLERATING PO INTAKE, VOIDING. AT ABOUT 0245 RN ROUNDED ON PT AND FOUND THAT PT HAD REMOVED DRESSING ON RUMA DRAIN BUT RUMA WAS STILL IN PLACE. PT INSTRUCTED NOT TO TOUCH DRAIN WHILE RN GOT SUPPLIES TO DRESS SITE. WHEN RN RETURNED WITH SUPPLIES, PT HAD REMOVED RUMA DRAIN. RUMA TUBING INTACT. SITE COVERED WITH GAUZE AND MEDIPORE TAPE. PAIN MANAGED WITH PO PAIN MED PER ORDERS. PT WEANED OFF O2 DURING THE SHIFT; O2 SAT IN MID-HIGH 90'S ON RA.
[2020-08-15 04:59] LABS: BASOPHILS ABSOLUTE AUTO 0.03 K/mm3 (0.00-0.23); BASOPHILS PERCENT AUTO 0 % (0-2); EOSINOPHILS PERCENT AUTO 0 % (0-6); Hematocrit 34.3 % (33.0-51.0); Hemoglobin 10.2 g/dL (11.5-16.0); IMMATURE GRAN ABSOLUTE AUTO 0.08 K/mm3 (0.00-0.10); IMMATURE GRAN PERCENT AUTO 0 % (0-1); LYMPHOCYTES ABSOLUTE AUTO 0.56 K/mm3 (0.84-5.20); LYMPHOCYTES PERCENT AUTO 3 % (21-46); MONOCYTES ABSOLUTE AUTO 0.99 K/mm3 (0.16-1.47); MONOCYTES PERCENT AUTO 5 % (4-13); Mean Corpuscular HGB 27.3 pg (26.0-34.0); Mean Corpuscular HGB Conc 29.7 g/dL (31.5-36.5); Mean Corpuscular Volume 92 fL (80-100); NEUTROPHILS ABSOLUTE AUTO 17.08 K/mm3 (1.96-9.15); NEUTROPHILS PERCENT AUTO 91 % (41-73); Platelet Count 424 K/mm3 (150-400); RDW Coefficient Variation 18.6 % (11.7-14.2); RDW Standard Deviation 62.8 fL (35.1-46.3); Red Blood Cell Count 3.74 M/mm3 (3.80-5.20); White Blood Cell Count 18.74 K/mm3 (4.00-11.30)
[2020-08-15 05:26] LABS: Alanine Aminotransfer (ALT/SGP 24 U/L (12-78); Albumin, Blood 1.8 g/dL (3.4-5.0); Albumin/Globulin Ratio 0.5 (0.8-1.8); Alk Phos 159 U/L (50-136); Anion Gap 8 mmol/L (6-16); Aspartate Aminotrans (AST/SGOT 47 U/L (12-37); Bilirubin, Total 0.3 mg/dL (0.1-1.0); Blood Urea Nitrogen 13 mg/dL (8-24); Bun/Creatinine Ratio 15.6 (12.0-20.0); CO2, Blood 21 mmol/L (21-32); Calcium, Blood 7.8 mg/dL (8.5-10.1); Chloride, Blood 112 mmol/L (98-108); Creatinine, Blood 0.83 mg/dL (0.40-1.00); Globulin, Blood 3.8 g/dL (2.2-4.0); Glomerular Filtration Rate >60 (60-); Glucose, Blood 183 mg/dL (70-99); Potassium, Blood 4.5 mmol/L (3.5-5.5); Sodium, Blood 141 mmol/L (136-145); Total Protein, Blood 5.6 g/dL (6.4-8.2)
--- NOTE | 2020-08-15 10:00 | NUR ---
DR ARAGON BEEN TO SEE PT, DISCUSSED PT PULLED OUT RUMA LAST NIGHT PER HS RN APPROX 03:00.
--- NOTE | 2020-08-15 16:48 | NUR ---
SHIFT SUMMARY PT EATING AND DRINKING, VOIDING. PT UP THIS AFTERNOON AND WENT FOR SHORT WALK IN HALLWAY WITH CGA, GB, WALKER. PT CONT TO BE CONFUSED AT TIMES. PT BEEN REORIENTED. PT BEEN ASSISTED WITH ADL'S PRN. PT BED ALARM IN PLACE.
[2020-08-16 04:35] LABS: BASOPHILS ABSOLUTE AUTO 0.03 K/mm3 (0.00-0.23); BASOPHILS PERCENT AUTO 0 % (0-2); EOSINOPHILS PERCENT AUTO 0 % (0-6); Hematocrit 26.9 % (33.0-51.0); Hemoglobin 8.1 g/dL (11.5-16.0); IMMATURE GRAN ABSOLUTE AUTO 0.21 K/mm3 (0.00-0.10); IMMATURE GRAN PERCENT AUTO 1 % (0-1); LYMPHOCYTES ABSOLUTE AUTO 1.17 K/mm3 (0.84-5.20); LYMPHOCYTES PERCENT AUTO 4 % (21-46); MONOCYTES ABSOLUTE AUTO 1.25 K/mm3 (0.16-1.47); MONOCYTES PERCENT AUTO 5 % (4-13); Mean Corpuscular HGB 27.6 pg (26.0-34.0); Mean Corpuscular HGB Conc 30.1 g/dL (31.5-36.5); Mean Corpuscular Volume 92 fL (80-100); Mean Platelet Volume 9.8 fL (9.1-12.4); NEUTROPHILS ABSOLUTE AUTO 24.86 K/mm3 (1.96-9.15); NEUTROPHILS PERCENT AUTO 90 % (41-73); Platelet Count 465 K/mm3 (150-400); RDW Coefficient Variation 18.4 % (11.7-14.2); Red Blood Cell Count 2.94 M/mm3 (3.80-5.20); White Blood Cell Count 27.52 K/mm3 (4.00-11.30)
[2020-08-16 04:58] LABS: Percent Saturation 18.9 % (15.0-50.0)
--- NOTE | 2020-08-16 05:06 | NUR ---
SHIFT SUMMARY PT HAS BEEN ALERT, ORIENTED X3; FORGETFUL AT TIMES, CONFUSED UPON AWAKENING. REORIENTS EASILY. PT IS SBA TO BATHROOM. REPOSITIONS SELF IN BED. PAIN MANAGED WITH PO PAIN MED PER ORDERS. PT HAD ONE EPISODE OF EMESIS DURING THE SHIFT; REPORTS SHE FELT BETTER AFTER VOMITING. REPORTS PASSING FLATUS. NO BM THIS SHIFT. PT HAS HAD SOME SOB WITH EXERTION. HAD RESP TREATMENT DURING THE NIGHT FOR SOB. IV FLUIDS INFUSING DURING THE NIGHT. PT CURRENTLY RESTING IN BED, CALL LIGHT IN REACH, BED ALARM ON.
[2020-08-16 05:19] LABS: Alanine Aminotransfer (ALT/SGP 20 U/L (12-78); Albumin, Blood 1.5 g/dL (3.4-5.0); Albumin/Globulin Ratio 0.4 (0.8-1.8); Alk Phos 135 U/L (50-136); Anion Gap 5 mmol/L (6-16); Aspartate Aminotrans (AST/SGOT 16 U/L (12-37); Bilirubin, Total 0.2 mg/dL (0.1-1.0); Blood Urea Nitrogen 26 mg/dL (8-24); CO2, Blood 22 mmol/L (21-32); Calcium, Blood 7.4 mg/dL (8.5-10.1); Chloride, Blood 112 mmol/L (98-108); Globulin, Blood 3.5 g/dL (2.2-4.0); Glomerular Filtration Rate >60 (60-); Glucose, Blood 106 mg/dL (70-99); Magnesium, Blood 1.5 mg/dL (1.6-2.4); Potassium, Blood 5.1 mmol/L (3.5-5.5); Sodium, Blood 139 mmol/L (136-145); Thyroid Stimulating Hormone 0.704 uIU/mL (0.360-4.800)
--- NOTE | 2020-08-16 09:53 | NUR ---
DR RICHARDS HERE TO SEE PT.
--- NOTE | 2020-08-16 15:58 | NUR ---
PT REPORTED TO HAVE BLACK LOOSE STOOL, NOTIFIED. SEE ORDER.
[2020-08-16 16:24] LABS: Hematocrit 23.9 % (33.0-51.0); Hemoglobin 7.1 g/dL (11.5-16.0)
--- NOTE | 2020-08-16 16:52 | NUR ---
NOTIFIED OF PT'S H+H.
--- NOTE | 2020-08-16 16:58 | NUR ---
SHIFT SUMMARY PT DRINKING, PT REPORTS NOT MUCH APPETITE EARLIER TODAY. PT BEEN RESTING MOST OF DAY. PT BEEN UP TO BATHROOM WITH ASSIST. PT HAD LARGE LIQUID BLACK STOOL TODAY PER VP GENETIC, WAS NOTIFIED. FAMILY/FRIEND IN TO SEE PT TODAY. PT BEEN ASSISTED WITH ADL'S PRN. CALL LIGHT IN REACH, ALARM IN PLACE.
--- NOTE | 2020-08-16 18:02 | NUR ---
PT REPORTS EATING DINNER WELL.
--- NOTE | 2020-08-16 18:05 | NUR ---
PT REPORTS IV HURTING WHEN FLUSHING IV, DIVIDER OPERATOR NOTIFIED FOR ASSISTANCE WITH NEW IV. PT'S ARMS WRAPPED IN WARM BLANKETS PT HAS BEEN DIFFICULT IN THE PAST FOR IV STARTS.
[2020-08-17 03:16] LABS: BASOPHILS ABSOLUTE AUTO 0.03 K/mm3 (0.00-0.23); BASOPHILS PERCENT AUTO 0 % (0-2); EOSINOPHILS ABSOLUTE AUTO 0.22 K/mm3 (0.00-0.68); EOSINOPHILS PERCENT AUTO 1 % (0-6); Hematocrit 28.6 % (33.0-51.0); Hemoglobin 8.9 g/dL (11.5-16.0); IMMATURE GRAN ABSOLUTE AUTO 0.14 K/mm3 (0.00-0.10); IMMATURE GRAN PERCENT AUTO 1 % (0-1); LYMPHOCYTES ABSOLUTE AUTO 1.29 K/mm3 (0.84-5.20); LYMPHOCYTES PERCENT AUTO 6 % (21-46); MONOCYTES ABSOLUTE AUTO 0.73 K/mm3 (0.16-1.47); MONOCYTES PERCENT AUTO 3 % (4-13); Mean Corpuscular HGB 28.9 pg (26.0-34.0); Mean Corpuscular HGB Conc 31.1 g/dL (31.5-36.5); Mean Corpuscular Volume 93 fL (80-100); Mean Platelet Volume 9.1 fL (9.1-12.4); NEUTROPHILS ABSOLUTE AUTO 18.83 K/mm3 (1.96-9.15); NEUTROPHILS PERCENT AUTO 89 % (41-73); Platelet Count 405 K/mm3 (150-400); RDW Coefficient Variation 17.3 % (11.7-14.2); RDW Standard Deviation 58.7 fL (35.1-46.3); Red Blood Cell Count 3.08 M/mm3 (3.80-5.20); White Blood Cell Count 21.24 K/mm3 (4.00-11.30)
[2020-08-17 03:34] LABS: Alanine Aminotransfer (ALT/SGP 15 U/L (12-78); Albumin, Blood 2.1 g/dL (3.4-5.0); Albumin/Globulin Ratio 0.6 (0.8-1.8); Alk Phos 134 U/L (50-136); Anion Gap 5 mmol/L (6-16); Aspartate Aminotrans (AST/SGOT 13 U/L (12-37); Bilirubin, Total 1.5 mg/dL (0.1-1.0); Blood Urea Nitrogen 22 mg/dL (8-24); Bun/Creatinine Ratio 28.4 (12.0-20.0); CO2, Blood 24 mmol/L (21-32); Calcium, Blood 8.1 mg/dL (8.5-10.1); Chloride, Blood 113 mmol/L (98-108); Creatinine, Blood 0.77 mg/dL (0.40-1.00); Globulin, Blood 3.4 g/dL (2.2-4.0); Glomerular Filtration Rate >60 (60-); Glucose, Blood 75 mg/dL (70-99); Magnesium, Blood 2.4 mg/dL (1.6-2.4); Potassium, Blood 4.5 mmol/L (3.5-5.5); Sodium, Blood 142 mmol/L (136-145); Total Protein, Blood 5.5 g/dL (6.4-8.2)
[2020-08-17 06:32] LABS: Stool Occult Blood Guaiac 1 Pos (Neg)
--- NOTE | 2020-08-17 06:32 | NUR ---
ASSUMED CARE AT 1900 , DUE TO HAVE 1 UNIT PRBC.AND STARTED WITHIN TH HOUR. LUNGS DIMINISHED AT BASES BUT CLEAR PRE TX. NOTED SOB ON EXERTION AND ASSISTED TO BR OR BSC ALL SHIFT AND RECOVERS QUICKLY AT REST FROM AUDIBLE WHEEZE WHILE OOB IN ROOM . ABD DSG REMAIN DRY AND INTACT. CLEAR LIQUIDS TAKEN IN SMALL SIPS. LITTLE INTEREST IN SNACKS OR JELLO. 1 LARGE,1 MODERATE SIZE LIQ TARY STOOL , FREQ SMEARS NOT CLEANED WELL BY PT THROUGHOUT NOC EACH TIME VOIDED.NO BLEOOD TX REACTION. REPORTS GAS PAINS AND RELIEVED QUICKLY IF OUT OF BED . 1L ON ALL NOC. SAT WNL. PLACED CALL TO DR HELMS AT 0300 TO DISCUSS INCREASE BP AND CRACKLES IN LT BASE SINCE BLOOD TX. LASIX ORDER . VOIDING QS. TRYING TO REST BTW ALL THE CARE.
[2020-08-17 09:22] LABS: Hematocrit 27.5 % (33.0-51.0); Hemoglobin 8.9 g/dL (11.5-16.0)
[2020-08-18 04:02] LABS: BASOPHILS ABSOLUTE AUTO 0.02 K/mm3 (0.00-0.23); BASOPHILS PERCENT AUTO 0 % (0-2); EOSINOPHILS ABSOLUTE AUTO 0.28 K/mm3 (0.00-0.68); EOSINOPHILS PERCENT AUTO 2 % (0-6); Hematocrit 24.9 % (33.0-51.0); IMMATURE GRAN ABSOLUTE AUTO 0.05 K/mm3 (0.00-0.10); IMMATURE GRAN PERCENT AUTO 0 % (0-1); LYMPHOCYTES PERCENT AUTO 8 % (21-46); MONOCYTES ABSOLUTE AUTO 0.71 K/mm3 (0.16-1.47); MONOCYTES PERCENT AUTO 5 % (4-13); Mean Corpuscular HGB Conc 32.1 g/dL (31.5-36.5); Mean Corpuscular Volume 90 fL (80-100); Mean Platelet Volume 9.3 fL (9.1-12.4); NEUTROPHILS ABSOLUTE AUTO 10.95 K/mm3 (1.96-9.15); NEUTROPHILS PERCENT AUTO 84 % (41-73); Platelet Count 399 K/mm3 (150-400); RDW Coefficient Variation 17.6 % (11.7-14.2); RDW Standard Deviation 58.2 fL (35.1-46.3); Red Blood Cell Count 2.76 M/mm3 (3.80-5.20); White Blood Cell Count 13.11 K/mm3 (4.00-11.30)
[2020-08-18 04:30] LABS: Alanine Aminotransfer (ALT/SGP 19 U/L (12-78); Albumin, Blood 1.8 g/dL (3.4-5.0); Albumin/Globulin Ratio 0.5 (0.8-1.8); Alk Phos 121 U/L (50-136); Anion Gap 7 mmol/L (6-16); Aspartate Aminotrans (AST/SGOT 14 U/L (12-37); Bilirubin, Total 0.3 mg/dL (0.1-1.0); Blood Urea Nitrogen 15 mg/dL (8-24); Bun/Creatinine Ratio 19.9 (12.0-20.0); CO2, Blood 26 mmol/L (21-32); Calcium, Blood 8.1 mg/dL (8.5-10.1); Chloride, Blood 107 mmol/L (98-108); Creatinine, Blood 0.75 mg/dL (0.40-1.00); Globulin, Blood 3.4 g/dL (2.2-4.0); Glomerular Filtration Rate >60 (60-); Glucose, Blood 113 mg/dL (70-99); Potassium, Blood 3.6 mmol/L (3.5-5.5); Sodium, Blood 140 mmol/L (136-145); Total Protein, Blood 5.2 g/dL (6.4-8.2)
--- NOTE | 2020-08-18 05:34 | NUR ---
SHIFT SUMMARY LAP KIRIT POD4, A/O X4, VSS, GIVES MIXED REPORTS OF PAIN STATING SHE ONLY HAS A LITTLE BUT THEN STATES IT IS 10/10 ON 0-10 SCALE, PT DOES NOT APPEAR TO BE IN ANY DISCOMFORT AT TIME OF PAIN STATEMENTS, NO GRIMACING OR WINCING DURING ASSESSMENT OR MOVING/REPOSITIONING PT, WILL MEDICATE PER EMAR. TOLERATING CLEAR PO INTAKE, DR CHANGED TO SIPS/CHIPS OVERNIGHT W/ NPO @ 0700 TO PREP FOR EGD @ 0900. CALL LIGHT IN REACH, WILL CONTINUE TO MONITOR AND REPORT TO ONCING DAY RN.
--- NOTE | 2020-08-18 09:21 | NUR ---
08/18/20 0921 Aroldo Feliciano History, Chart, Medications and Allergies reviewed before start of procedure.MONITOR INTACT WITH CONTINUOUS PULSE OXIMETRY AND INTERMITTENT BP.3-LEAD EKG REVIEWED WITH PHYSICIAN PRIOR TO START OF PROCEDURE.O2 VIA N/C INTACT THROUGHOUT SEDATION/PROCEDURE. PATIENT DETERMINED TO BE ASA APPROPRIATE FOR PROPOFOL SEDATION PRIOR TO START OF PROCEDURE BY DR. MASCORRO.
--- NOTE | 2020-08-18 19:24 | NUR ---
SHIFT SUMMARY PT HAD AN ENDOSCOPY IN THE MORNING. REPORT RECIEVED FROM ANAIS PEREZ FROM DAY SURGERY STATING THAT PT HAS AN ULCER. PT IS ON FULL LIQUID DIET. SHE C/O OF NAUSEA BUT DENIES VOMITING. VSS. PT C/O CONSTANT PAIN ON ABD REGION. IV SITE ON LEFT AC WAS DISCHARGED BECAUSE IT WAS LEAKING. IV PLACED ON RIGHT UPPER ARM, AND IT IS PATENT.
[2020-08-19 04:00] LABS: BASOPHILS ABSOLUTE AUTO 0.01 K/mm3 (0.00-0.23); BASOPHILS PERCENT AUTO 0 % (0-2); EOSINOPHILS ABSOLUTE AUTO 0.25 K/mm3 (0.00-0.68); EOSINOPHILS PERCENT AUTO 3 % (0-6); Hemoglobin 7.9 g/dL (11.5-16.0); IMMATURE GRAN ABSOLUTE AUTO 0.04 K/mm3 (0.00-0.10); IMMATURE GRAN PERCENT AUTO 0 % (0-1); LYMPHOCYTES ABSOLUTE AUTO 1.24 K/mm3 (0.84-5.20); LYMPHOCYTES PERCENT AUTO 13 % (21-46); MONOCYTES ABSOLUTE AUTO 0.74 K/mm3 (0.16-1.47); MONOCYTES PERCENT AUTO 8 % (4-13); Mean Corpuscular HGB 28.8 pg (26.0-34.0); Mean Corpuscular HGB Conc 31.6 g/dL (31.5-36.5); Mean Corpuscular Volume 91 fL (80-100); Mean Platelet Volume 9.2 fL (9.1-12.4); NEUTROPHILS ABSOLUTE AUTO 7.54 K/mm3 (1.96-9.15); NEUTROPHILS PERCENT AUTO 77 % (41-73); Platelet Count 427 K/mm3 (150-400); RDW Coefficient Variation 17.1 % (11.7-14.2); RDW Standard Deviation 57.8 fL (35.1-46.3); Red Blood Cell Count 2.74 M/mm3 (3.80-5.20); White Blood Cell Count 9.82 K/mm3 (4.00-11.30)
[2020-08-19 04:21] LABS: Alanine Aminotransfer (ALT/SGP 16 U/L (12-78); Albumin, Blood 1.8 g/dL (3.4-5.0); Albumin/Globulin Ratio 0.5 (0.8-1.8); Alk Phos 117 U/L (50-136); Anion Gap 4 mmol/L (6-16); Aspartate Aminotrans (AST/SGOT 14 U/L (12-37); Bilirubin, Total 0.3 mg/dL (0.1-1.0); Blood Urea Nitrogen 7 mg/dL (8-24); Bun/Creatinine Ratio 9.2 (12.0-20.0); CO2, Blood 29 mmol/L (21-32); Calcium, Blood 8.3 mg/dL (8.5-10.1); Chloride, Blood 110 mmol/L (98-108); Creatinine, Blood 0.76 mg/dL (0.40-1.00); Globulin, Blood 3.4 g/dL (2.2-4.0); Glomerular Filtration Rate >60 (60-); Glucose, Blood 102 mg/dL (70-99); Potassium, Blood 3.7 mmol/L (3.5-5.5); Sodium, Blood 143 mmol/L (136-145); Total Protein, Blood 5.2 g/dL (6.4-8.2)
--- NOTE | 2020-08-19 06:28 | NUR ---
SUMMARY PT HOPING FOR DISCHARGE TODAY. PT HAS DIFF SWALLOWING PILLS AND STATES LIQ WOULD BE BETTER. HX HIATAL HERNIA AND S/P UPPER ENDO. WILL DISCUSS WITH DAY RN POSSIBILITY OF GETTING LIQ PAIN MEDS AND CONFIRMING DR IVAN.
[2020-08-19] MEDS ORDERED: PANT40 PO (11:36)
[2020-08-19] MEDS ORDERED: FOLI1 PO (11:36)
[2020-08-19] MEDS ORDERED: ACET325 PO (11:36)
--- NOTE | 2020-08-19 14:30 | NUR ---
DISCHARGE MEDS FAXED TO PHARMACY OF CHOICE, PT STATES UNDERSTANDING OF INSTRUCTIONS. VOIDING, EATING/DRINKING, PAIN MANAGED. ESCORTED OUT VIA W/C.
== END 2020-08-19 14:32 | disposition home or self-care (01) | DRG 417 ==
LOC: ER 17:49 → SURS 17:50
PROVIDERS: Internal Medicine; Nurse Practitioner Acute Care; Physician Assistant; Surgery; ADMIT Family Medicine
PROC: 0FT44ZZ Resection of Gallbladder, Percutaneous Endoscopic Approach (ICD-10-PCS; principal; 2020-08-14 14:15)
PROC: 30233N1 Transfusion of Nonautologous Red Blood Cells into Peripheral Vein, Percutaneous Approach (ICD-10-PCS; 2020-08-17)
PROC: 0DJ08ZZ Inspection of Upper Intestinal Tract, Via Natural or Artificial Opening Endoscopic (ICD-10-PCS; 2020-08-18)
DX: K80.00 Calculus of gallbladder with acute cholecystitis without obstruction (principal); K22.11 Ulcer of esophagus with bleeding; N39.0 Urinary tract infection, site not specified; I10 Essential (primary) hypertension; E78.5 Hyperlipidemia, unspecified; F41.9 Anxiety disorder, unspecified; J44.9 Chronic obstructive pulmonary disease, unspecified; Z87.891 Personal history of nicotine dependence; K21.9 Gastro-esophageal reflux disease without esophagitis; E87.6 Hypokalemia; K82.A1 Gangrene of gallbladder in cholecystitis; D63.8 Anemia in other chronic diseases classified elsewhere; K44.9 Diaphragmatic hernia without obstruction or gangrene; T39.015A Adverse effect of aspirin, initial encounter; Y92.9 Unspecified place or not applicable
CPT/HCPCS: 0202U; 36415; 36430; 74176; 80048; 80053; 81001; 82272; 82607; 82728; 82746; 82947; 83540; 83550; 83690; 83735; 84443; 85014; 85018; 85025; 86850; 86900; 86901; 86923; 87077; 87086; 87186; 88304; 93005; 93010; 96361; 96365; 96367; 96375; 96376; 99285-25; A9270; A9270-GY; C9113; G0378; J0696; J1100; J1170; J1885; J1940; J2270; J2370; J2405; J2543; J2704; J3010; J3475; J3480; J7030; J7050; J7120; P9016; P9046; U0003

== ENCOUNTER 2021-01-08 15:17 | Inpatient (IN) | payer OTHER, MEDICARE ==
[~2021-01-08] VITALS: Ht 157.5 cm; Wt 49.9 kg
[~2021-01-08 15:17] MED LIST changes: +ACET325 PO; +FEROSUL325 M1 PO; +FOLI1 PO; +PANT40 PO
[2021-01-08 16:09] LABS: BASOPHILS ABSOLUTE AUTO 0.03 K/mm3 (0.00-0.23); BASOPHILS PERCENT AUTO 0 % (0-2); EOSINOPHILS ABSOLUTE AUTO 0.01 K/mm3 (0.00-0.68); EOSINOPHILS PERCENT AUTO 0 % (0-6); Hematocrit 36.7 % (33.0-51.0); Hemoglobin 11.2 g/dL (11.5-16.0); IMMATURE GRAN ABSOLUTE AUTO 0.14 K/mm3 (0.00-0.10); IMMATURE GRAN PERCENT AUTO 1 % (0-1); LYMPHOCYTES PERCENT AUTO 2 % (21-46); MONOCYTES ABSOLUTE AUTO 1.42 K/mm3 (0.16-1.47); MONOCYTES PERCENT AUTO 6 % (4-13); Mean Corpuscular HGB 26.6 pg (26.0-34.0); Mean Corpuscular HGB Conc 30.5 g/dL (31.5-36.5); Mean Corpuscular Volume 87 fL (80-100); Mean Platelet Volume 9.3 fL (9.1-12.4); NEUTROPHILS ABSOLUTE AUTO 20.13 K/mm3 (1.96-9.15); NEUTROPHILS PERCENT AUTO 91 % (41-73); Platelet Count 463 K/mm3 (150-400); RDW Coefficient Variation 14.6 % (11.7-14.2); RDW Standard Deviation 46.7 fL (35.1-46.3); Red Blood Cell Count 4.21 M/mm3 (3.80-5.20); White Blood Cell Count 22.13 K/mm3 (4.00-11.30)
[2021-01-08 16:37] LABS: Alanine Aminotransfer (ALT/SGP 10 U/L (12-78); Albumin, Blood 1.9 g/dL (3.4-5.0); Albumin/Globulin Ratio 0.4 (0.8-1.8); Alk Phos 172 U/L (50-136); Anion Gap 9 mmol/L (6-16); Aspartate Aminotrans (AST/SGOT 10 U/L (12-37); Bilirubin, Total 0.6 mg/dL (0.1-1.0); Blood Urea Nitrogen 17 mg/dL (8-24); Bun/Creatinine Ratio 18.6 (12.0-20.0); CO2, Blood 25 mmol/L (21-32); Chloride, Blood 101 mmol/L (98-108); Creatinine, Blood 0.91 mg/dL (0.40-1.00); Globulin, Blood 4.4 g/dL (2.2-4.0); Glomerular Filtration Rate >60 (60-); Glucose, Blood 157 mg/dL (70-99); Potassium, Blood 3.7 mmol/L (3.5-5.5); Sodium, Blood 135 mmol/L (136-145); Total Protein, Blood 6.3 g/dL (6.4-8.2); Troponin I <0.015 ng/mL (0.000-0.040)
[2021-01-08 18:02] LABS: Source, Urine Clean Catch
[2021-01-08 18:06] LABS: Appearance, Urine Hazy (Clear); Blood, Urine 1+ (Neg); Color, Urine Yellow (P-Yellow); Glucose Qualitative, Urine Neg (Neg); Ketones, Urine 1+ (Neg); Leukocyte Esterase, Urine 2+ (Neg); Nitrite, Urine Neg (Neg); Protein, Urine 2+ (Neg); Specific Gravity, Urine 1.025 (1.003-1.022); Urobilinogen, Urine 2+ (Normal)
[2021-01-08 18:29] LABS: Bilirubin, Urine 1+ (Neg)
[2021-01-08 18:30] LABS: Bacteria Mod /hpf; Squamous Epithelial Cells Few /hpf (Few)
[2021-01-08 18:45] LABS: Influenza A, PCR NEGATIVE (NEGATIVE); Influenza B, PCR NEGATIVE (NEGATIVE); Resp Syncytial Virus, PCR NEGATIVE (NEGATIVE); SARS-Cov-2 (COVID-19) PCR, MMC NEGATIVE (NEGATIVE)
[2021-01-08] MEDS ORDERED: ALLO100 PO (21:25)
[2021-01-08] MEDS ORDERED: CITA20 PO (21:26)
[2021-01-08] MEDS ORDERED: TRAZ50 PO (21:27)
[2021-01-08] MEDS ORDERED: OLANZAPINE PO (21:35)
[2021-01-08] MEDS ORDERED: CELEXA10 MG PO (21:36)
[2021-01-09 05:28] LABS: BASOPHILS ABSOLUTE AUTO 0.03 K/mm3 (0.00-0.23); BASOPHILS PERCENT AUTO 0 % (0-2); EOSINOPHILS ABSOLUTE AUTO 0.03 K/mm3 (0.00-0.68); EOSINOPHILS PERCENT AUTO 0 % (0-6); Hematocrit 31.5 % (33.0-51.0); Hemoglobin 9.8 g/dL (11.5-16.0); IMMATURE GRAN ABSOLUTE AUTO 0.06 K/mm3 (0.00-0.10); IMMATURE GRAN PERCENT AUTO 0 % (0-1); LYMPHOCYTES PERCENT AUTO 7 % (21-46); MONOCYTES ABSOLUTE AUTO 1.44 K/mm3 (0.16-1.47); MONOCYTES PERCENT AUTO 10 % (4-13); Mean Corpuscular HGB 26.6 pg (26.0-34.0); Mean Corpuscular HGB Conc 31.1 g/dL (31.5-36.5); Mean Corpuscular Volume 86 fL (80-100); Mean Platelet Volume 9.2 fL (9.1-12.4); NEUTROPHILS ABSOLUTE AUTO 12.23 K/mm3 (1.96-9.15); NEUTROPHILS PERCENT AUTO 82 % (41-73); Platelet Count 408 K/mm3 (150-400); RDW Coefficient Variation 14.6 % (11.7-14.2); RDW Standard Deviation 45.9 fL (35.1-46.3); Red Blood Cell Count 3.68 M/mm3 (3.80-5.20); White Blood Cell Count 14.89 K/mm3 (4.00-11.30)
[2021-01-09 05:53] LABS: Anion Gap 8 mmol/L (6-16); Blood Urea Nitrogen 13 mg/dL (8-24); Bun/Creatinine Ratio 16.6 (12.0-20.0); CO2, Blood 23 mmol/L (21-32); Calcium, Blood 7.7 mg/dL (8.5-10.1); Chloride, Blood 106 mmol/L (98-108); Creatinine, Blood 0.78 mg/dL (0.40-1.00); Glomerular Filtration Rate >60 (60-); Glucose, Blood 66 mg/dL (70-99); Potassium, Blood 4.3 mmol/L (3.5-5.5); Sodium, Blood 137 mmol/L (136-145)
--- NOTE | 2021-01-09 07:15 | NUR ---
REPORT GIVEN TO ANA WARREN.
[2021-01-09 07:32] LABS: Adenovirus Not Detected (NOT DETECT); Coronavirus 229E Not Detected (NOT DETECT); Coronavirus HKU1 Not Detected (NOT DETECT); Coronavirus NL63 Not Detected (NOT DETECT); Coronavirus OC43 Not Detected (NOT DETECT); Human Metapneumovirus Not Detected (NOT DETECT); Human Rhinovirus/Enterovirus Not Detected (NOT DETECT); Influenza A/H1 Not Detected (NOT DETECT); SARS-Cov-2 (COVID-19), BioFire Not Detected (NOT DETECT)
[2021-01-09 07:33] LABS: Bordetella pertussis Not Detected (NOT DETECT); Chlamydophila pneumoniae Not Detected (NOT DETECT); Influenza A/2009-H1 Not Detected (NOT DETECT); Influenza A/H3 Not Detected (NOT DETECT); Influenza B Not Detected (NOT DETECT); Mycoplasma pneumoniae Not Detected (NOT DETECT); Parainfluenza Virus 1 Not Detected (NOT DETECT); Parainfluenza Virus 2 Not Detected (NOT DETECT); Parainfluenza Virus 3 Not Detected (NOT DETECT); Parainfluenza Virus 4 Not Detected (NOT DETECT); Respiratory Syncytial Virus Not Detected (NOT DETECT)
--- NOTE | 2021-01-09 14:31 | NUR ---
PT SURGICAL PROCEDURE STATUS THIS RN SPOKE WITH WHO STATED DR. REDMAN WILL BE VIEWING THE PT'S CT SCAN AND POTENTIALLY PERFORMING THE PT'S PROCEDURE TONIGHT. PT HAS REMAINED NPO STATUS AND HAS NOT RECEIVED ANTICOAGULANTS. DR. NATH STATED HE SPOKE WITH DR. REDMAN ABOUT PT STATUS.
--- NOTE | 2021-01-09 19:34 | NUR ---
SHIFT SUMMARY PT IS AOX3 AND ANXIOUS. PT DENIES PAIN, AND VOMITING. PT C/O NAUSEA THIS AM WHICH RESOLVED WITHOUT INTERVENTION. PT C/O INTERMITTENT SOB. PT IS ONE PERSON ASSIST IN ROOM. PT HAS REMAINED NPO THROUGHT THIS SHIFT FOR PENDING PROCEDURE. DR. REDMAN WILL BE WORKING WITH THE PT IVETTE. PT DID NOT HAVE VISITORS TODAY. PT IS IN BED, CALL LIGHT IN REACH, BED IN LOW POSITION.
--- NOTE | 2021-01-09 21:09 | NUR ---
01/09/212114 TO CT SCAN VIA KNIFE OPERATOR AND Mobile [employer]. PT GIVEN MED PO PER DR. REDMAN. PT HAS BEEN FORGETFUL WITH INSTRUCTIONS LIKE MEASURING URINE AND PULLING OF WRAP ON IV. SHE IS ALERT X 4 BUT "FORGETS" INFO. GIVEN RECENTLY. HEART MONITOR OFF FOR PROCEDURE AND TECH NOTIFIED.
--- NOTE | 2021-01-09 22:53 | NUR ---
01/09/[address] PROCEDURE VIA GUERNEY. SLIGHTLY DISORIENTED TO SURROUNDINGS. RN REORIENT TO SURROUNDINGS AND TUBES AND PROCEDURE DONE. BED ALARM ON. POST-OP VITALS STARTED. SIPS OF WATER WITH MEDS. CALL ANAYA WITHIN REACH.
--- NOTE | 2021-01-09 22:57 | NUR ---
01/09/21 2200 RUMA COMPRESSION DRAIN FROM RT LOWER BACK INTACT WITH RED DRAINAGE.
--- NOTE | 2021-01-10 01:08 | NUR ---
01/10/21 0110 PT AWAKENED FOR VITALS AND CONFUSED AND C/O CHILLS. PT SHAKING. BLANKETS ON AND NO TEMP. NOTED. RN REASSURED HER BUT RESTLESS. WARM BLANKET APPLIES AND MORE RELAXED AFTERWARDS.
--- NOTE | 2021-01-10 06:47 | NUR ---
01/10/21 0615 PT SLEEPING WELL LATER PART OF SHIFT. REFER TO NURSES NOTES FOR EVENTS. VITALS STABLE. PT BECOMES VERY RESSTLESS WHEN BP IS TAKEN. O2 REMAINS AT 3LPM. RUMA DRAIN WITH 65 ML RED DRAINAGE.
[2021-01-10 15:42] LABS: BASOPHILS ABSOLUTE AUTO 0.03 K/mm3 (0.00-0.23); BASOPHILS PERCENT AUTO 0 % (0-2); EOSINOPHILS ABSOLUTE AUTO 0.02 K/mm3 (0.00-0.68); EOSINOPHILS PERCENT AUTO 0 % (0-6); Hematocrit 28.4 % (33.0-51.0); Hemoglobin 8.9 g/dL (11.5-16.0); IMMATURE GRAN ABSOLUTE AUTO 0.13 K/mm3 (0.00-0.10); IMMATURE GRAN PERCENT AUTO 1 % (0-1); LYMPHOCYTES ABSOLUTE AUTO 0.71 K/mm3 (0.84-5.20); LYMPHOCYTES PERCENT AUTO 3 % (21-46); MONOCYTES ABSOLUTE AUTO 1.92 K/mm3 (0.16-1.47); MONOCYTES PERCENT AUTO 9 % (4-13); Mean Corpuscular HGB 27.1 pg (26.0-34.0); Mean Corpuscular HGB Conc 31.3 g/dL (31.5-36.5); Mean Corpuscular Volume 87 fL (80-100); NEUTROPHILS ABSOLUTE AUTO 17.99 K/mm3 (1.96-9.15); NEUTROPHILS PERCENT AUTO 87 % (41-73); Platelet Count 394 K/mm3 (150-400); RDW Standard Deviation 47.1 fL (35.1-46.3); Red Blood Cell Count 3.28 M/mm3 (3.80-5.20)
[2021-01-11 05:37] LABS: BASOPHILS ABSOLUTE AUTO 0.04 K/mm3 (0.00-0.23); BASOPHILS PERCENT AUTO 0 % (0-2); EOSINOPHILS ABSOLUTE AUTO 0.12 K/mm3 (0.00-0.68); EOSINOPHILS PERCENT AUTO 1 % (0-6); Hematocrit 29.4 % (33.0-51.0); Hemoglobin 9.1 g/dL (11.5-16.0); IMMATURE GRAN ABSOLUTE AUTO 0.17 K/mm3 (0.00-0.10); IMMATURE GRAN PERCENT AUTO 1 % (0-1); LYMPHOCYTES ABSOLUTE AUTO 0.51 K/mm3 (0.84-5.20); LYMPHOCYTES PERCENT AUTO 2 % (21-46); MONOCYTES ABSOLUTE AUTO 1.42 K/mm3 (0.16-1.47); MONOCYTES PERCENT AUTO 6 % (4-13); Mean Corpuscular HGB 26.6 pg (26.0-34.0); Mean Corpuscular Volume 86 fL (80-100); Mean Platelet Volume 9.1 fL (9.1-12.4); NEUTROPHILS ABSOLUTE AUTO 21.83 K/mm3 (1.96-9.15); NEUTROPHILS PERCENT AUTO 91 % (41-73); Platelet Count 442 K/mm3 (150-400); RDW Coefficient Variation 15.1 % (11.7-14.2); RDW Standard Deviation 47.4 fL (35.1-46.3); Red Blood Cell Count 3.42 M/mm3 (3.80-5.20); White Blood Cell Count 24.09 K/mm3 (4.00-11.30)
[2021-01-11 06:21] LABS: Alanine Aminotransfer (ALT/SGP 7 U/L (12-78); Albumin, Blood 1.3 g/dL (3.4-5.0); Albumin/Globulin Ratio 0.4 (0.8-1.8); Alk Phos 105 U/L (50-136); Anion Gap 7 mmol/L (6-16); Aspartate Aminotrans (AST/SGOT 7 U/L (12-37); Bilirubin, Total 0.3 mg/dL (0.1-1.0); Blood Urea Nitrogen 13 mg/dL (8-24); Bun/Creatinine Ratio 14.7 (12.0-20.0); CO2, Blood 20 mmol/L (21-32); Calcium, Blood 7.2 mg/dL (8.5-10.1); Chloride, Blood 110 mmol/L (98-108); Creatinine, Blood 0.88 mg/dL (0.40-1.00); Globulin, Blood 3.3 g/dL (2.2-4.0); Glomerular Filtration Rate >60 (60-); Glucose, Blood 99 mg/dL (70-99); Potassium, Blood 4.1 mmol/L (3.5-5.5); Sodium, Blood 137 mmol/L (136-145); Total Protein, Blood 4.6 g/dL (6.4-8.2)
--- NOTE | 2021-01-11 08:50 | NUR ---
HYPOTENSION/TRANSFER PT HYPOTENSIVE WITH BLOOD PRESSURE LOW 73/48. THIS RN CALLED DR. OREILLY AND NOTIFIED HER OF THIS. ORDERS FOR A LITER BOLUS OF SALINE AND TO TRANSFER TO ICU. PT ANSWERS QUESTIONS WITH SLOW RESPONSE AND WOULD NOT OPEN EYES. SALINE INFUSING AT THIS TIME AND REPORT GIVEN TO ANA LOFTON. THIS RN CALLED PT'S SON, AJAY TO NOTIFY HIM OF PT'S STATUS AND ROOM CHANGE. HEAT W[employer]DER [employer] AND COIL WRAPPER TRANSFERRING PT TO ICU3.
--- NOTE | 2021-01-11 09:29 | NUR ---
TRANSFER IN PT TRANSFERED IN TO ICU 3 VIA BED AT 0855. PT IS AWAKE, ALERT, AND ORIENTED TO SELF AND PLACE. PT IS CONFUSED/FORGETFUL. PT ON 3L O2 NC. NS BOLUS INFUSING THROUGH 22G PERIPHERAL IV. SBP LOW 90'S, MAP 60'S. ATTENDS IN PLACE. PT WITH DRAIN NOTED TO RIGHT FLANK WITH BLOODY/CLOUDY OUTPUT NOTED. DISCUSSED PLAN OF CARE WITH PT SON. DR OREILLY AT BEDSIDE AT THIS TIME.
[2021-01-11 10:47] LABS: PCO2 Arterial 39.8 mmHg (35-45); PO2 Arterial 83.3 mmHg (80-100); pH Blood Arterial 7.33 (7.35-7.45)
[2021-01-11 11:34] LABS: Source, Urine Catheter
[2021-01-11 11:41] LABS: Appearance, Urine Clear (Clear); Bilirubin, Urine Neg (Neg); Blood, Urine Neg (Neg); Color, Urine Yellow (P-Yellow); Glucose Qualitative, Urine Neg (Neg); Ketones, Urine Neg (Neg); Leukocyte Esterase, Urine 2+ (Neg); Nitrite, Urine Neg (Neg); Protein, Urine Neg (Neg); Specific Gravity, Urine 1.005 (1.003-1.022); Urobilinogen, Urine NORM (Normal)
--- NOTE | 2021-01-11 11:51 | NUR ---
PLAN FOR TRANSFER DISCUSSED PLAN OF CARE WITH PT AND PT SON AJAY. DR OREILLY INITIATING TRANSFER TO [facility] AT THIS TIME. PICC LINE IN PLACE WITH NS INFUSING TKO. LEVOPHED ON STANDBY. VITAL SIGNS STABLE AT THIS TIME. WILL CONTINUE TO MONITOR.
[2021-01-11 12:06] LABS: Bacteria Rare /hpf; Red Blood Cells, Urine 0-2 /hpf (0-2); Squamous Epithelial Cells Mod /hpf (Few)
--- NOTE | 2021-01-11 13:01 | NUR ---
TRANSFER TO [facility] REPORT CALLED TO ANA SIERRA AT [facility]. ALL QUESTIONS ANSWERED. PT SON AND DAUGHTER AT BEDSIDE TO SEE PT PRIOR TO DEPARTURE. PT BELONGINGS SENT WITH SON AND DAUGHTER. PT LEFT THIS ROOM AT 1300 VIA [facility].
[2021-03-05] MEDS ORDERED: FEROSUL325 M1 PO (12:02)
[2021-03-05] MEDS ORDERED: MONT10T PO (12:02)
[2021-03-19] MEDS ORDERED: CARV3.125 PO (12:47)
[2021-03-19] MEDS ORDERED: ELIQUIS5 MG PO (12:47)
[2021-03-19] MEDS ORDERED: Lisinopril2.5 MG PO (12:48)
[2021-03-19] MEDS ORDERED: CLOP75 PO (12:48)
[2021-03-19] MEDS ORDERED: SPIR25 PO (12:49)
[2021-03-19] MEDS ORDERED: B-1100 M1 PO (12:49)
[2021-03-19] MEDS ORDERED: BISA5EC PO (12:53)
== END 2021-01-11 13:00 | disposition short-term general hospital (02) | DRG 862 ==
LOC: ER 15:17 → MEDS 22:49 → ICUE 01-11 09:12
PROVIDERS: Nurse Practitioner Acute Care; Physician Assistant; Surgery; ADMIT Internal Medicine
PROC: 0W9F30Z Drainage of Abdominal Wall with Drainage Device, Percutaneous Approach (ICD-10-PCS; principal; 2021-01-09)
DX: T81.44XA Sepsis following a procedure, initial encounter (principal); A41.9 Sepsis, unspecified organism; R65.21 Severe sepsis with septic shock; K65.1 Peritoneal abscess; J86.9 Pyothorax without fistula; K21.9 Gastro-esophageal reflux disease without esophagitis; I10 Essential (primary) hypertension; E78.5 Hyperlipidemia, unspecified; I25.10 Atherosclerotic heart disease of native coronary artery without angina pectoris; J44.9 Chronic obstructive pulmonary disease, unspecified
CPT/HCPCS: 0202U; 0241U; 36415; 36569; 36600; 51702; 71045; 71260; 74160; 75989; 80048; 80053; 81001; 82803; 82947; 83605; 83880; 84145; 84484; 85025; 85379; 87040; 87070; 87075; 87077; 87086; 87186; 87205; 93005; 93010; 96361; 96365; 96367; 96375; 99285-25; A9270; C1751; J0456; J0696; J2405; J2543; J7030; J7050; J7060; J7120; Q9967

== ENCOUNTER 2021-04-14 17:37 | Emergency (ER) | payer OTHER ==
[~2021-04-14] VITALS: Ht 157.5 cm; Wt 42.6 kg
[~2021-04-14 17:37] MED LIST changes: +B-1100 M1 PO; +BISA5EC PO; +CARV3.125 PO; +CELEXA10 MG PO; +CITA20 PO; +CLOP75 PO; +ELIQUIS5 MG PO; +Lisinopril2.5 MG PO; +MONT10T PO; +OLANZAPINE PO; +SPIR25 PO; +TRAZ50 PO
[2021-04-14 18:21] LABS: BASOPHILS ABSOLUTE AUTO 0.05 K/mm3 (0.00-0.23); BASOPHILS PERCENT AUTO 0 % (0-2); EOSINOPHILS ABSOLUTE AUTO 0.13 K/mm3 (0.00-0.68); EOSINOPHILS PERCENT AUTO 1 % (0-6); Hematocrit 39.5 % (33.0-51.0); Hemoglobin 12.6 g/dL (11.5-16.0); IMMATURE GRAN ABSOLUTE AUTO 0.05 K/mm3 (0.00-0.10); IMMATURE GRAN PERCENT AUTO 0 % (0-1); LYMPHOCYTES ABSOLUTE AUTO 2.23 K/mm3 (0.84-5.20); LYMPHOCYTES PERCENT AUTO 16 % (21-46); MONOCYTES ABSOLUTE AUTO 1.01 K/mm3 (0.16-1.47); MONOCYTES PERCENT AUTO 7 % (4-13); Mean Corpuscular HGB 31.1 pg (26.0-34.0); Mean Corpuscular HGB Conc 31.9 g/dL (31.5-36.5); Mean Corpuscular Volume 98 fL (80-100); Mean Platelet Volume 9.2 fL (9.1-12.4); NEUTROPHILS ABSOLUTE AUTO 10.72 K/mm3 (1.96-9.15); NEUTROPHILS PERCENT AUTO 76 % (41-73); Platelet Count 342 K/mm3 (150-400); RDW Coefficient Variation 16.4 % (11.7-14.2); RDW Standard Deviation 56.8 fL (35.1-46.3); Red Blood Cell Count 4.05 M/mm3 (3.80-5.20); White Blood Cell Count 14.19 K/mm3 (4.00-11.30)
[2021-04-14 18:47] LABS: Albumin, Blood 2.2 g/dL (3.4-5.0); Albumin/Globulin Ratio 0.6 (0.8-1.8); Bilirubin, Total 0.4 mg/dL (0.1-1.0); Bun/Creatinine Ratio 6.2 (12.0-20.0); Calcium, Blood 8.3 mg/dL (8.5-10.1); Creatinine, Blood 1.12 mg/dL (0.40-1.00); Globulin, Blood 3.5 g/dL (2.2-4.0); Potassium, Blood 3.3 mmol/L (3.5-5.5); Total Protein, Blood 5.7 g/dL (6.4-8.2); Troponin I 0.018 ng/mL (0.000-0.040)
[2021-04-14] MEDS ORDERED: CEPH500 PO (20:12)
== END 2021-04-14 20:24 | disposition home or self-care (01) ==
LOC: ER 17:37
PROVIDERS: Physician Assistant
DX: R07.9 Chest pain, unspecified (principal); S80.812A Abrasion, left lower leg, initial encounter; L03.116 Cellulitis of left lower limb; K21.9 Gastro-esophageal reflux disease without esophagitis; E78.5 Hyperlipidemia, unspecified; J44.9 Chronic obstructive pulmonary disease, unspecified; I25.810 Atherosclerosis of coronary artery bypass graft(s) without angina pectoris; Z95.1 Presence of aortocoronary bypass graft; Z79.01 Long term (current) use of anticoagulants; Z79.899 Other long term (current) drug therapy; Z87.891 Personal history of nicotine dependence; W19.XXXA Unspecified fall, initial encounter
CPT/HCPCS: 36415; 71046; 80053; 84145; 84484; 85025; 93005; 93010; 99285-25; A9270

== ENCOUNTER 2021-06-07 17:05 | Emergency (ER) | payer OTHER ==
[~2021-06-07] VITALS: Ht 165.1 cm; Wt 61.2 kg
[2021-06-07 18:25] LABS: BASOPHILS ABSOLUTE AUTO 0.05 K/mm3 (0.00-0.23); BASOPHILS PERCENT AUTO 1 % (0-2); EOSINOPHILS ABSOLUTE AUTO 0.39 K/mm3 (0.00-0.68); EOSINOPHILS PERCENT AUTO 5 % (0-6); Hematocrit 32.7 % (33.0-51.0); Hemoglobin 10.4 g/dL (11.5-16.0); IMMATURE GRAN ABSOLUTE AUTO 0.02 K/mm3 (0.00-0.10); IMMATURE GRAN PERCENT AUTO 0 % (0-1); LYMPHOCYTES PERCENT AUTO 18 % (21-46); MONOCYTES ABSOLUTE AUTO 0.58 K/mm3 (0.16-1.47); MONOCYTES PERCENT AUTO 8 % (4-13); Mean Corpuscular HGB 30.8 pg (26.0-34.0); Mean Corpuscular HGB Conc 31.8 g/dL (31.5-36.5); Mean Corpuscular Volume 97 fL (80-100); NEUTROPHILS ABSOLUTE AUTO 4.97 K/mm3 (1.96-9.15); NEUTROPHILS PERCENT AUTO 68 % (41-73); Platelet Count 361 K/mm3 (150-400); RDW Coefficient Variation 14.7 % (11.7-14.2); RDW Standard Deviation 52.4 fL (35.1-46.3); Red Blood Cell Count 3.38 M/mm3 (3.80-5.20); White Blood Cell Count 7.31 K/mm3 (4.00-11.30)
== END 2021-06-07 19:14 | disposition home or self-care (01) ==
LOC: ER 17:05
PROVIDERS: Emergency Medicine
DX: R58 Hemorrhage, not elsewhere classified (principal); Z79.02 Long term (current) use of antithrombotics/antiplatelets; Z79.899 Other long term (current) drug therapy
CPT/HCPCS: 36415; 85025; 99283-25

== ENCOUNTER 2021-07-16 01:23 | Day surgery (SDC) | payer OTHER | END 2021-07-16 23:05 | disposition home or self-care (01) | LOC: WOUND 01:23 | DX: S81.809A Unspecified open wound, unspecified lower leg, initial encounter (principal); X58.XXXA Exposure to other specified factors, initial encounter; I10 Essential (primary) hypertension; I73.9 Peripheral vascular disease, unspecified | CPT/HCPCS: G0463 ==

== ENCOUNTER 2021-07-24 01:46 | Day surgery (SDC) | payer OTHER | END 2021-07-24 23:13 | disposition home or self-care (01) | LOC: WOUND 01:46 | DX: S81.812A Laceration without foreign body, left lower leg, initial encounter (principal); S81.811A Laceration without foreign body, right lower leg, initial encounter; L97.822 Non-pressure chronic ulcer of other part of left lower leg with fat layer exposed; I10 Essential (primary) hypertension; I73.9 Peripheral vascular disease, unspecified | CPT/HCPCS: A9270; G0463 ==

== ENCOUNTER 2021-07-30 17:08 | Inpatient (IN) | payer OTHER ==
[~2021-07-30] VITALS: Ht 157.5 cm; Wt 41.7 kg
[2021-07-30 17:57] LABS: BASOPHILS ABSOLUTE AUTO 0.06 K/mm3 (0.00-0.23); BASOPHILS PERCENT AUTO 1 % (0-2); EOSINOPHILS ABSOLUTE AUTO 0.06 K/mm3 (0.00-0.68); EOSINOPHILS PERCENT AUTO 1 % (0-6); Hematocrit 36.8 % (33.0-51.0); Hemoglobin 11.6 g/dL (11.5-16.0); IMMATURE GRAN ABSOLUTE AUTO 0.02 K/mm3 (0.00-0.10); IMMATURE GRAN PERCENT AUTO 0 % (0-1); LYMPHOCYTES PERCENT AUTO 15 % (21-46); MONOCYTES ABSOLUTE AUTO 0.75 K/mm3 (0.16-1.47); MONOCYTES PERCENT AUTO 8 % (4-13); Mean Corpuscular HGB 30.1 pg (26.0-34.0); Mean Corpuscular HGB Conc 31.5 g/dL (31.5-36.5); Mean Corpuscular Volume 95 fL (80-100); Mean Platelet Volume 9.1 fL (9.1-12.4); NEUTROPHILS ABSOLUTE AUTO 7.22 K/mm3 (1.96-9.15); NEUTROPHILS PERCENT AUTO 76 % (41-73); Platelet Count 373 K/mm3 (150-400); RDW Coefficient Variation 14.4 % (11.7-14.2); RDW Standard Deviation 50.1 fL (35.1-46.3); Red Blood Cell Count 3.86 M/mm3 (3.80-5.20); White Blood Cell Count 9.51 K/mm3 (4.00-11.30)
[2021-07-30 18:09] LABS: Ethanol (Alcohol), Blood, Med <3 mg/dL; Magnesium, Blood 1.9 mg/dL (1.6-2.4)
[2021-07-30 18:13] LABS: Albumin, Blood 1.6 g/dL (3.4-5.0); Albumin/Globulin Ratio 0.5 (0.8-1.8); Bilirubin, Total 0.4 mg/dL (0.1-1.0); Bun/Creatinine Ratio 6.9 (12.0-20.0); Calcium, Blood 7.5 mg/dL (8.5-10.1); Creatinine, Blood 1.31 mg/dL (0.40-1.00); Globulin, Blood 3.1 g/dL (2.2-4.0); Potassium, Blood 3.2 mmol/L (3.5-5.5); Total Protein, Blood 4.7 g/dL (6.4-8.2); Troponin I 0.019 ng/mL (0.000-0.040)
[2021-07-30 19:25] LABS: Source, Urine Clean Catch
[2021-07-30 19:36] LABS: Appearance, Urine Clear (Clear); Bilirubin, Urine Neg (Neg); Blood, Urine Neg (Neg); Color, Urine Yellow (P-Yellow); Glucose Qualitative, Urine Neg (Neg); Ketones, Urine Neg (Neg); Leukocyte Esterase, Urine 2+ (Neg); Nitrite, Urine Neg (Neg); Protein, Urine 1+ (Neg); Specific Gravity, Urine 1.015 (1.003-1.022); Urobilinogen, Urine NORM (Normal)
[2021-07-30 19:47] LABS: U Amphetamine Screen Not Detected; U Barbituate Screen Not Detected; U Benzodiazapine Screen Not Detected; U Buprenorphine Screen Not Detected; U Cannabinoids Screen Not Detected; U Cocaine Screen Not Detected; U Methadone Screen Not Detected; U Methamphetamine Screen Not Detected; U Opiates Screen Not Detected; U Oxycodone Screen Not Detected; U Phencyclidine Screen Not Detected; U Propoxyphene Screen Not Detected
[2021-07-30 19:48] LABS: Bacteria Few /hpf; Mucus Light (0-Heavy); Squamous Epithelial Cells Mod /hpf (Few)
[2021-07-30 19:50] LABS: Granular Casts 0-2 /lpf (0); Renal Epithelial Rare /hpf (0-Rare)
[2021-07-30 20:05] LABS: SARS-Cov-2 (COVID-19) PCR, MMC NEGATIVE (NEGATIVE)
--- NOTE | 2021-07-31 07:58 | NUR ---
SHIFT SUMMARY PT. NEW ADMIT FOR DEHYDRATION AND AFIB RVR ON CARDIZEM DRIP. A/OX4. ALERT, CALM, CALLS APPROPRIATELY. ON RA O2 STATS ABOVE 92%. CONT. TO BEDSIDE COMMODE. CONT. TO BE ON A CARDIZEM DRIP GAVE REPORT TO DAY SHIFT NURSE. DOES HAVE A LOWER EXT. WOUND THAT PT. STATES HAS HAD FOR [address]. ON TELE FOR AFIB IN THE 120'S. GOOD PO INTAKE. CALLS WHEN NEEDED.
[2021-07-31 08:32] LABS: BASOPHILS ABSOLUTE AUTO 0.06 K/mm3 (0.00-0.23); BASOPHILS PERCENT AUTO 1 % (0-2); EOSINOPHILS ABSOLUTE AUTO 0.04 K/mm3 (0.00-0.68); EOSINOPHILS PERCENT AUTO 0 % (0-6); Hematocrit 37.5 % (33.0-51.0); Hemoglobin 11.9 g/dL (11.5-16.0); IMMATURE GRAN ABSOLUTE AUTO 0.02 K/mm3 (0.00-0.10); IMMATURE GRAN PERCENT AUTO 0 % (0-1); LYMPHOCYTES ABSOLUTE AUTO 1.68 K/mm3 (0.84-5.20); LYMPHOCYTES PERCENT AUTO 15 % (21-46); MONOCYTES ABSOLUTE AUTO 0.84 K/mm3 (0.16-1.47); MONOCYTES PERCENT AUTO 7 % (4-13); Mean Corpuscular HGB 30.1 pg (26.0-34.0); Mean Corpuscular HGB Conc 31.7 g/dL (31.5-36.5); Mean Corpuscular Volume 95 fL (80-100); Mean Platelet Volume 9.1 fL (9.1-12.4); NEUTROPHILS ABSOLUTE AUTO 8.66 K/mm3 (1.96-9.15); NEUTROPHILS PERCENT AUTO 77 % (41-73); Platelet Count 342 K/mm3 (150-400); RDW Coefficient Variation 14.3 % (11.7-14.2); RDW Standard Deviation 49.9 fL (35.1-46.3); Red Blood Cell Count 3.95 M/mm3 (3.80-5.20)
[2021-07-31 08:48] LABS: Magnesium, Blood 2.2 mg/dL (1.6-2.4)
[2021-07-31 09:15] LABS: Albumin, Blood 2.6 g/dL (3.4-5.0); Anion Gap 7 mmol/L (6-16); Blood Urea Nitrogen 7 mg/dL (8-24); Bun/Creatinine Ratio 6.6 (12.0-20.0); CO2, Blood 24 mmol/L (21-32); Calcium, Blood 8.6 mg/dL (8.5-10.1); Chloride, Blood 113 mmol/L (98-108); Creatinine, Blood 1.06 mg/dL (0.40-1.00); Glomerular Filtration Rate 51 (60-); Glucose, Blood 88 mg/dL (70-99); Phosphorus, Blood 2.3 mg/dL (2.5-4.9); Potassium, Blood 3.3 mmol/L (3.5-5.5); Sodium, Blood 144 mmol/L (136-145)
[2021-07-31 14:34] LABS: Free Thyroxine 0.99 ng/dL (0.70-1.60); Thyroid Stimulating Hormone 7.42 uIU/mL (0.360-4.800)
--- NOTE | 2021-07-31 18:30 | NUR ---
SHIFT SUMMARY HEART RATE 100-110'S AT REST AND 130-150 AT TIMES WITH ACTIVITY EXERTION. 1 ASST TO BSC. UP TO CHAIR MOST OF THE DAY AND AMBULATED WITH PT. ROOM AIR. CARDIZEM GTT INFUSING, PO GIVEN.
[2021-08-01 04:06] LABS: BASOPHILS ABSOLUTE AUTO 0.03 K/mm3 (0.00-0.23); BASOPHILS PERCENT AUTO 0 % (0-2); EOSINOPHILS ABSOLUTE AUTO 0.27 K/mm3 (0.00-0.68); EOSINOPHILS PERCENT AUTO 4 % (0-6); Hematocrit 31.4 % (33.0-51.0); IMMATURE GRAN ABSOLUTE AUTO 0.01 K/mm3 (0.00-0.10); IMMATURE GRAN PERCENT AUTO 0 % (0-1); LYMPHOCYTES PERCENT AUTO 23 % (21-46); MONOCYTES PERCENT AUTO 9 % (4-13); Mean Corpuscular HGB 29.9 pg (26.0-34.0); Mean Corpuscular HGB Conc 31.8 g/dL (31.5-36.5); Mean Corpuscular Volume 94 fL (80-100); Mean Platelet Volume 9.2 fL (9.1-12.4); NEUTROPHILS ABSOLUTE AUTO 4.44 K/mm3 (1.96-9.15); NEUTROPHILS PERCENT AUTO 64 % (41-73); Platelet Count 285 K/mm3 (150-400); RDW Coefficient Variation 14.1 % (11.7-14.2); RDW Standard Deviation 47.8 fL (35.1-46.3); Red Blood Cell Count 3.35 M/mm3 (3.80-5.20); White Blood Cell Count 6.95 K/mm3 (4.00-11.30)
[2021-08-01 04:22] LABS: Albumin, Blood 1.8 g/dL (3.4-5.0); Anion Gap 5 mmol/L (6-16); Blood Urea Nitrogen 7 mg/dL (8-24); Bun/Creatinine Ratio 5.9 (12.0-20.0); CO2, Blood 25 mmol/L (21-32); Calcium, Blood 7.4 mg/dL (8.5-10.1); Chloride, Blood 111 mmol/L (98-108); Creatinine, Blood 1.19 mg/dL (0.40-1.00); Glomerular Filtration Rate 45 (60-); Glucose, Blood 83 mg/dL (70-99); Magnesium, Blood 2.1 mg/dL (1.6-2.4); Phosphorus, Blood 3.1 mg/dL (2.5-4.9); Potassium, Blood 3.7 mmol/L (3.5-5.5); Sodium, Blood 141 mmol/L (136-145)
--- NOTE | 2021-08-01 06:34 | NUR ---
SHIFT SUMMARY PATIENT IS RESTING IN BED COMFORTABLY. BED IS IN LOW POSTION. CALL LIGHT IS IN REACH. NO COMPLAINTS OF PAIN. THE PATIENT IS STILL ON THE DILTIAZEM DRIP RUNNING AT 5MG/HR (5ML/HR). THE PATIENT WOULD OCCASSIONALY GO FROM AFIB TO NSR. NO COMPLAINTS OF CHEST PAIN. HR DOES NO UP WITH ACTIVITY BUT GOES BACK DOWN WHEN IN BED. WILL CONTINUE TO MONITOR.
--- NOTE | 2021-08-01 07:38 | NUR ---
per tele alexandra pt is up above 80 currently at 0725 possibly when she was woke up to do vs hr per tele afib at 84 will restart our 2 hr time for the turning off of the drip
[2021-08-01 08:10] LABS: HBSAG SCREEN Negative (Negative); HEP B CORE AB, TOT Negative (Negative); HEP C VIRUS AB 0.2 (0.0-0.9)
--- NOTE | 2021-08-01 08:15 | NUR ---
pt assisted to bsc then to edge of the bed to eat stated she was feeling nausea will give zofran no emesis meds given
--- NOTE | 2021-08-01 10:21 | NUR ---
pastoral care at bedside per relay telegrapher hr in 's
--- NOTE | 2021-08-01 11:40 | NUR ---
per alexandra television mechanic hr afib 100
--- NOTE | 2021-08-01 11:57 | NUR ---
Introduction: PT was refered by Dr. Lim. Assessment: PT presented seated in bed pleasant demeanor and cheerful attitude. After brief introduction I asked PT how she was feeling. She stated,"Sometimes I wake up in the morning, in pain. Sometimes I'm depressed, but I pray to God and I'm helped through my day." I reinforced the positive habit and asked PT to tell me more about how it feels to be depressed. PT responded with," It feels lonely. It feels like noone understands the pain that I'm in." I asked if the pain was physical or emotional. PT stated, "Physical". PT feels supported by her doctor and nurses at [facility]. PT also has help from two sons, on at home and one in the [place] area. We conversed some more in generalities and prayed before my departure. Intervention: PT offered prayer. PT offered a daily devotional handout. Outcome: PT received prayer and daily devotional handout. Follow-Up: As needed or requested.
--- NOTE | 2021-08-01 13:13 | NUR ---
dr nuno by to see pt
--- NOTE | 2021-08-01 16:09 | NUR ---
message left with dr nuno re h/a re po tylenol
--- NOTE | 2021-08-01 16:35 | NUR ---
po tylenol given for h/a
--- NOTE | 2021-08-01 18:02 | NUR ---
dami schuler pt earlier asked for her trazadone early to sleep told pt no we dont give those in the afternoon
--- NOTE | 2021-08-01 23:45 | NUR ---
PT REPORTS HER HEADACHE IS GONE. CALL LIGHT WITHIN REACH. BED IN LOW POSITION. PT WAS SLEEPING UPON ENTERING ROOM.
[2021-08-02 04:10] LABS: BASOPHILS ABSOLUTE AUTO 0.03 K/mm3 (0.00-0.23); BASOPHILS PERCENT AUTO 0 % (0-2); EOSINOPHILS ABSOLUTE AUTO 0.31 K/mm3 (0.00-0.68); EOSINOPHILS PERCENT AUTO 5 % (0-6); Hematocrit 31.6 % (33.0-51.0); Hemoglobin 9.9 g/dL (11.5-16.0); IMMATURE GRAN ABSOLUTE AUTO 0.01 K/mm3 (0.00-0.10); IMMATURE GRAN PERCENT AUTO 0 % (0-1); LYMPHOCYTES ABSOLUTE AUTO 1.71 K/mm3 (0.84-5.20); LYMPHOCYTES PERCENT AUTO 26 % (21-46); MONOCYTES ABSOLUTE AUTO 0.75 K/mm3 (0.16-1.47); MONOCYTES PERCENT AUTO 11 % (4-13); Mean Corpuscular HGB Conc 31.3 g/dL (31.5-36.5); Mean Corpuscular Volume 96 fL (80-100); Mean Platelet Volume 9.2 fL (9.1-12.4); NEUTROPHILS ABSOLUTE AUTO 3.86 K/mm3 (1.96-9.15); NEUTROPHILS PERCENT AUTO 58 % (41-73); Platelet Count 289 K/mm3 (150-400); RDW Standard Deviation 49.4 fL (35.1-46.3); White Blood Cell Count 6.67 K/mm3 (4.00-11.30)
[2021-08-02 04:27] LABS: Albumin, Blood 1.8 g/dL (3.4-5.0); Anion Gap 4 mmol/L (6-16); Blood Urea Nitrogen 10 mg/dL (8-24); Bun/Creatinine Ratio 7.8 (12.0-20.0); CO2, Blood 25 mmol/L (21-32); Calcium, Blood 7.2 mg/dL (8.5-10.1); Chloride, Blood 110 mmol/L (98-108); Creatinine, Blood 1.29 mg/dL (0.40-1.00); Glomerular Filtration Rate 41 (60-); Glucose, Blood 75 mg/dL (70-99); Magnesium, Blood 2.2 mg/dL (1.6-2.4); Phosphorus, Blood 2.7 mg/dL (2.5-4.9); Potassium, Blood 3.9 mmol/L (3.5-5.5); Sodium, Blood 139 mmol/L (136-145)
--- NOTE | 2021-08-02 07:16 | NUR ---
SHIFT SUMMARY - NO ACUTE CHANGES THROUGHOUT THE NIGHT. CARDIZEM DRIP TURNED OFF AT 0445, PT HAS BEEN SUSTAINING A HEART RATE OF 70'S FOR 2 HOURS. DAY SHIFT RN REPORTED TO TURN CARDIZEM OFF AFTER SUSTAINING A HEART RATE OF 70 FOR 2 HOURS. PT SLEPT THROUGHOUT MOST OF THE NIGHT. PT DENIED ANY FURTHER COMPLAINTS OF A HEADACHE. FLUIDS AT BEDSIDE. CALL LIGHT WITHIN REACH. BED IN LOW POSITION.
--- NOTE | 2021-08-02 19:24 | NUR ---
SHIFT SUMMARY NO ACUTE CHANGES THIS SHIFT. BP'S SLIGHTLY SOFT AND HR CONTROLLED. NO C/O PAIN THIS SHIFT. SBA TO THE BATHROOM. PT SINUS RHYTHM PER DRAIN TECHNICIAN. WILL REPORT TO SHOLA PEREZ.
--- NOTE | 2021-08-02 20:30 | NUR ---
AT AROUND 2019 THE PATIENT VOMITED AFTER TAKING ALL HER MEDICATION. SHE WAS PREMEDICATED WITH ANTIEMETIC AND THAT DID NOT HELP. PATIENT WAS CLEANED UP AND DURING CLEAN UP HER MEDICATIONS WERE FOUND ON THE BED AND BLANKET. THE PREVIOUS MEDS WERE WASTED IN THE PYXIS AND NEW ONES WERE TAKEN OUT AND READMINISTED. ANTIEMETIC WAS GIVEN AGAIN AND SHE WAS ABLE TO KEEP MEDICATION DOWN. PATIENT RESTING IN BED WHEN RN LEFT THE ROOM. NO MORE COMPLAINS OF NAUSEA. WILL CONTINUE TO MONITOR
--- NOTE | 2021-08-03 05:35 | NUR ---
SHIFT SUMMARY PATIENT IS RESTING COMFORTABLY IN BED. PATIENT HAS BEEN GETTING UP TO THE BED SIDE COMMODE THROUGHOUT THE SHIFT. BED IS IN LOW POSTION. CALL LIGHT IS IN REACH. PATIENT HAD ONE EPISODE OF EMESIS SEE NOTES. VITALS HAVE BEEN STABLE. HEART RATE HAS BEEN STABLE AND BLOOD PRESSURE HAS BEEN STABLE. NO ACUTE CHANGES DURING THE SHIFT. WILL GIVE REPORT TO DAY SHIFT.
--- NOTE | 2021-08-03 18:40 | NUR ---
SHIFT SUMMARY PT C/O NAUSEA AND VOMITTING AT THE BEGINNING OF THE SHIFT. AT THIS TIME SHE HAD A PERIOD OF EMESIS AND THREW UP HER MORNING MEDICATIONS. TREATED PER EMR. NO C/O OF NAUSEA SINCE. SMALL/FREQUENT LOOSE BM'S NOTED WELL, STOOL SAMPLE COLLECTED. PT CONVERTED TO AFIB FROM NORMAL SINUS THIS SHIFT WELL AND HAS REMAINED IN AFIB IN THE 100'S. WILL REPORT TO SHOLA PEREZ.
[2021-08-03 20:07] LABS: Adenovirus F 40/41 Not Detected (NOT DETECT); Astrovirus Not Detected (NOT DETECT); Campylobacter Sp Not Detected (NOT DETECT); Cryptosporidium Not Detected (NOT DETECT); Cyclospora Cayetanensis Not Detected (NOT DETECT); E. Coli O157 Not Detected (NOT DETECT); Entamoeba Histolytica Not Detected (NOT DETECT); Enteroaggregative E. coli-EAEC Not Detected (NOT DETECT); Enteropathogenic E. coli-EPEC Not Detected (NOT DETECT); Enterotoxigenic E. coli-ETEC Not Detected (NOT DETECT); Giardia Lamblia Not Detected (NOT DETECT); Norovirus GI/GII Not Detected (NOT DETECT); Plesiomonas Shigelloides Not Detected (NOT DETECT); Rotavirus A Not Detected (NOT DETECT); Salmonella Sp Not Detected (NOT DETECT); Sapovirus Not Detected (NOT DETECT); Shiga Toxin-prod E. coli-STEC Not Detected (NOT DETECT); Shigella/Enteroin E. coli-EIEC Not Detected (NOT DETECT); Vibrio Cholerae Not Detected (NOT DETECT); Vibrio Sp Not Detected (NOT DETECT); Yersinia Enterocolitica Not Detected (NOT DETECT)
[2021-08-04 04:36] LABS: BASOPHILS ABSOLUTE AUTO 0.04 K/mm3 (0.00-0.23); BASOPHILS PERCENT AUTO 1 % (0-2); EOSINOPHILS ABSOLUTE AUTO 0.29 K/mm3 (0.00-0.68); EOSINOPHILS PERCENT AUTO 5 % (0-6); Hematocrit 30.8 % (33.0-51.0); Hemoglobin 9.7 g/dL (11.5-16.0); IMMATURE GRAN ABSOLUTE AUTO 0.01 K/mm3 (0.00-0.10); IMMATURE GRAN PERCENT AUTO 0 % (0-1); LYMPHOCYTES ABSOLUTE AUTO 1.54 K/mm3 (0.84-5.20); LYMPHOCYTES PERCENT AUTO 26 % (21-46); MONOCYTES ABSOLUTE AUTO 0.61 K/mm3 (0.16-1.47); MONOCYTES PERCENT AUTO 10 % (4-13); Mean Corpuscular HGB 29.9 pg (26.0-34.0); Mean Corpuscular HGB Conc 31.5 g/dL (31.5-36.5); Mean Corpuscular Volume 95 fL (80-100); Mean Platelet Volume 9.5 fL (9.1-12.4); NEUTROPHILS ABSOLUTE AUTO 3.47 K/mm3 (1.96-9.15); NEUTROPHILS PERCENT AUTO 58 % (41-73); Platelet Count 285 K/mm3 (150-400); RDW Coefficient Variation 14.1 % (11.7-14.2); RDW Standard Deviation 49.1 fL (35.1-46.3); Red Blood Cell Count 3.24 M/mm3 (3.80-5.20); White Blood Cell Count 5.96 K/mm3 (4.00-11.30)
[2021-08-04 05:05] LABS: Albumin, Blood 1.7 g/dL (3.4-5.0); Albumin/Globulin Ratio 0.7 (0.8-1.8); Bilirubin, Total 0.2 mg/dL (0.1-1.0); Bun/Creatinine Ratio 8.9 (12.0-20.0); Calcium, Blood 7.3 mg/dL (8.5-10.1); Creatinine, Blood 1.24 mg/dL (0.40-1.00); Globulin, Blood 2.4 g/dL (2.2-4.0); Potassium, Blood 4.2 mmol/L (3.5-5.5); Total Protein, Blood 4.1 g/dL (6.4-8.2)
--- NOTE | 2021-08-04 06:30 | NUR ---
SHIFT SUMMARY PATIENT IS RESTING COMFORTABLY IN BED. BED IS IN LOW POSITION. CALL LIGHT IS IN REACH. VITAL WERE STABLE. PATIENT COMPLAINED OF NAUSEA BUT NO VOMITING. NO ACUTE CHANGES DURING THE SHIFT. WILL GIVE REPORT TO DAY SHIFT NURSE
[2021-08-04] MEDS ORDERED: MIRT15 PO (11:23)
[2021-08-04] MEDS ORDERED: FERRO-TIME325 MG PO (11:24)
[2021-08-04] MEDS ORDERED: TRAZ50 PO (11:24)
[2021-08-04] MEDS ORDERED: NITR.4SL SL (11:24)
[2021-08-04] MEDS ORDERED: CYAN500 PO (11:26)
[2021-08-04] MEDS ORDERED: MUPIROCIN1 G1 TOP (11:26)
--- NOTE | 2021-08-04 14:23 | NUR ---
MEDICAL STATUS DR. OREILLY AGREED THAT PT CAN BE TRANSFERED TO MEDICAL FLOOR WITHOUT TELE. PT IS A POSSIBLE DISCHARGE TOMORROW PER DR. OREILLY.
--- NOTE | 2021-08-04 17:44 | NUR ---
TRANSFER SUMMARY REPORT GIVEN TO BRIANA Schneider RN. PT TRANSITIONED FROM CLEAR LIQ TO FULL LIQ TODAY AND TOLERATING WELL. ORAL VANCO STARTED. NO OTHER ACUTE CHANGES IN ASSESSMENT AT THIS TIME. PT WHEELED UP TO ROOM 340 BY AIDEN.
--- NOTE | 2021-08-04 18:04 | NUR ---
SHIFT SUMMARY PT IS AOX4. PT TRANSFERRED TO UNIT FROM PCU AT APPROXIMATELY 1745. PT IS SBA IN ROOM. PT REPORTEDLY HAD ONE BM TODAY. PT APPETITE IS GOOD ON FULL LIQUID DIET WITH NO N/V. PT DENIES SOB, PAIN. PT IS IN BED, CALL LIGHT IN REACH, LOW POSITION.
--- NOTE | 2021-08-05 05:24 | NUR ---
SHIFT SUMMARY NO ACUTE CHANGES THIS SHIFT. AOX4. VSS. DENIES PAIN, SOB, N/V. NO BM THIS SHIFT. TOLERATED DIET. CALL LIGHT IN REACH & PT ABLE TO MAKE NEEDS KNOWN. WCTM UNTIL DAY NURSE ASSUMES CARE.
[2021-08-05] MEDS ORDERED: Vancomycin500 MG/100 PO (11:40)
[2021-08-05] MEDS ORDERED: VISBIOME 112.51 EACH PO (11:41)
== END 2021-08-05 13:25 | disposition home health service (06) | DRG 683 ==
LOC: ER 17:08 → PCU 17:09 → SURS 07-31 01:29 → MEDS 08-04 17:44
PROVIDERS: Emergency Medicine; Emergency Medicine Emergency Medical Services; Internal Medicine; ADMIT Internal Medicine
DX: N17.9 Acute kidney failure, unspecified (principal); A04.72 Enterocolitis due to Clostridium difficile, not specified as recurrent; Z68.1 Body mass index [BMI] 19.9 or less, adult; E44.0 Moderate protein-calorie malnutrition; R64 Cachexia; E86.0 Dehydration; N18.30 Chronic kidney disease, stage 3 unspecified; I25.10 Atherosclerotic heart disease of native coronary artery without angina pectoris; Z95.5 Presence of coronary angioplasty implant and graft; E87.6 Hypokalemia; Z20.822 Contact with and (suspected) exposure to COVID-19; E83.42 Hypomagnesemia; K21.9 Gastro-esophageal reflux disease without esophagitis; E78.5 Hyperlipidemia, unspecified; Z86.73 Personal history of transient ischemic attack (TIA), and cerebral infarction without residual deficits; G43.909 Migraine, unspecified, not intractable, without status migrainosus; I48.91 Unspecified atrial fibrillation; I12.9 Hypertensive chronic kidney disease with stage 1 through stage 4 chronic kidney disease, or unspecified chronic kidney disease; J44.9 Chronic obstructive pulmonary disease, unspecified; R91.1 Solitary pulmonary nodule; I95.9 Hypotension, unspecified; G89.29 Other chronic pain; E83.39 Other disorders of phosphorus metabolism; D64.9 Anemia, unspecified; I25.2 Old myocardial infarction; Z79.01 Long term (current) use of anticoagulants; Z95.1 Presence of aortocoronary bypass graft; Z90.49 Acquired absence of other specified parts of digestive tract; Z98.51 Tubal ligation status; Z98.890 Other specified postprocedural states; E83.51 Hypocalcemia
CPT/HCPCS: 0097U; 36415; 71045; 74176; 80053; 80069; 81001; 82728; 83540; 83550; 83605; 83690; 83735; 83880; 84145; 84439; 84443; 84484; 85025; 85651; 86317; 86704; 86708; 86803; 87040; 87324; 87340; 93005; 93010; 96365; 96366; 96376; 97110; 97116; 97162; 97165; 97530; 97535; 99285-25; A9270; G0480; J0610; J2405; J2765; J3475; J7030; J7060; P9046; U0004

== ENCOUNTER 2023-03-05 19:56 | Emergency (ER) | payer MEDICARE ==
[~2023-03-05] VITALS: Ht 157.5 cm; Wt 54.4 kg
[~2023-03-05 19:56] MED LIST changes: +ALBU2.5V5 INH; +COMPRESSOR NEB1 EACH MC; +CYAN500 PO; +FERRO-TIME325 MG PO; +MIRT15 PO; +MUPIROCIN1 G1 TOP; +NITR.4SL SL; +PRED20 PO; +VISBIOME 112.51 EACH PO; +Vancomycin500 MG/100 PO
[2023-03-05 20:10] VITALS: BP 159/99
== END 2023-03-05 20:57 | disposition home or self-care (01) ==
LOC: ER 19:56
DX: J44.9 Chronic obstructive pulmonary disease, unspecified (principal); Z79.899 Other long term (current) drug therapy; Z79.52 Long term (current) use of systemic steroids; Z87.891 Personal history of nicotine dependence; I48.91 Unspecified atrial fibrillation; K21.9 Gastro-esophageal reflux disease without esophagitis; N18.2 Chronic kidney disease, stage 2 (mild); G43.909 Migraine, unspecified, not intractable, without status migrainosus
CPT/HCPCS: 99283; A9270

== ENCOUNTER 2023-06-24 15:09 | Inpatient (IN) | payer MEDICARE, OTHER ==
[~2023-06-24] VITALS: Ht 157.5 cm; Wt 56.2 kg
[~2023-06-24 15:09] MED LIST changes: -CELEXA10 MG PO; +Celexa20 MG PO
[2023-06-24 16:31] LABS: BASOPHILS ABSOLUTE AUTO 0.04 K/mm3 (0.00-0.23); BASOPHILS PERCENT AUTO 1 % (0-2); EOSINOPHILS PERCENT AUTO 4 % (0-6); Hematocrit 21.4 % (33.0-51.0); IMMATURE GRAN ABSOLUTE AUTO 0.02 K/mm3 (0.00-0.10); IMMATURE GRAN PERCENT AUTO 0 % (0-1); LYMPHOCYTES ABSOLUTE AUTO 1.46 K/mm3 (0.84-5.20); LYMPHOCYTES PERCENT AUTO 18 % (21-46); MONOCYTES ABSOLUTE AUTO 0.64 K/mm3 (0.16-1.47); MONOCYTES PERCENT AUTO 8 % (4-13); Mean Corpuscular HGB 21.4 pg (26.0-34.0); Mean Corpuscular Volume 76 fL (80-100); Mean Platelet Volume 8.9 fL (9.1-12.4); NEUTROPHILS ABSOLUTE AUTO 5.55 K/mm3 (1.96-9.15); NEUTROPHILS PERCENT AUTO 69 % (41-73); Platelet Count 427 K/mm3 (150-400); RDW Coefficient Variation 17.1 % (11.7-14.2); RDW Standard Deviation 47.9 fL (35.1-46.3); White Blood Cell Count 8.01 K/mm3 (4.00-11.30)
[2023-06-24 16:53] LABS: Albumin, Blood 3.3 g/dL (3.4-5.0); Bilirubin, Total 0.3 mg/dL (0.1-1.0); Bun/Creatinine Ratio 10.5 (12.0-20.0); Calcium, Blood 8.4 mg/dL (8.5-10.1); Creatinine, Blood 1.53 mg/dL (0.40-1.00); Globulin, Blood 3.4 g/dL (2.2-4.0); Potassium, Blood 4.3 mmol/L (3.5-5.5); Total Protein, Blood 6.7 g/dL (6.4-8.2)
[2023-06-24 18:33] LABS: Percent Saturation 3.9 % (15.0-50.0)
--- NOTE | 2023-06-24 20:41 | NUR ---
PT CHART REVIEWED FOR ADMIT
[2023-06-24 22:17] VITALS: BP 173/98
[2023-06-24 23:06] VITALS: BP 150/86
[2023-06-25 00:20] LABS: Hematocrit 26.6 % (33.0-51.0); Hemoglobin 7.8 g/dL (11.5-16.0)
[2023-06-25 03:28] VITALS: BP 134/87
[2023-06-25 05:06] LABS: Hematocrit 25.3 % (33.0-51.0); Hemoglobin 7.6 g/dL (11.5-16.0); Mean Corpuscular HGB 23.2 pg (26.0-34.0); Mean Corpuscular Volume 77 fL (80-100); Mean Platelet Volume 8.8 fL (9.1-12.4); Platelet Count 407 K/mm3 (150-400); RDW Coefficient Variation 16.7 % (11.7-14.2); RDW Standard Deviation 47.4 fL (35.1-46.3); Red Blood Cell Count 3.28 M/mm3 (3.80-5.20)
--- NOTE | 2023-06-25 06:35 | NUR ---
Shift Summary Pt admitted to this floor from ED with acute on chronic anemia. Per the chart notes blood was noted in the stool in the ED. Dr. Watkins saw pt for a GI consult. Pt rcvd 1 unit of blood, Hgb went from 6.0 to 7.8 and then 7.6 this AM. Pt is independent in the room, AOx4, cooperative with care. She was not able to sleep last night despite recieving her night time Trazodone. No c/o of pain or dizzyness/weakness. No adverse reaction to blood transfusion.
[2023-06-25 07:43] VITALS: BP 179/80
[2023-06-25 10:43] VITALS: BP 152/87
--- NOTE | 2023-06-25 12:00 | NUR ---
PATIENT HAD EPISODE OF VOMITING AT APPROX 1050AM TODAY, ZOFRAN GIVEN. APPROX 250ML VOMIT, APPEARANCE AND CONSITENCY LOOKS JUST LIKE THE CHOCOLATE ENSURE SHE DRANK THIS MORNING FOR BREAKFAST.
[2023-06-25 15:02] VITALS: BP 99/60
[2023-06-25 15:24] LABS: Hematocrit 25.1 % (33.0-51.0); Hemoglobin 7.3 g/dL (11.5-16.0)
--- NOTE | 2023-06-25 19:11 | NUR ---
SHIFT SUMMARY PATIENT HAD NO ADDITIONAL VOMITING TODAY, ABLE TO TOLERATE TOMATO SOUP FOR DINNER. BED IN LOW POSITION, CALL LIGHT IN REACH. PATIENT CALLS APPROPRIATELY
[2023-06-25 19:45] VITALS: BP 132/83
[2023-06-26 04:25] VITALS: BP 137/84
[2023-06-26 05:11] LABS: Hematocrit 26.9 % (33.0-51.0); Hemoglobin 7.9 g/dL (11.5-16.0); Mean Corpuscular HGB 23.2 pg (26.0-34.0); Mean Corpuscular HGB Conc 29.4 g/dL (31.5-36.5); Mean Corpuscular Volume 79 fL (80-100); Mean Platelet Volume 9.2 fL (9.1-12.4); Platelet Count 374 K/mm3 (150-400); RDW Coefficient Variation 17.3 % (11.7-14.2); RDW Standard Deviation 49.1 fL (35.1-46.3); White Blood Cell Count 5.95 K/mm3 (4.00-11.30)
[2023-06-26 05:49] LABS: Bun/Creatinine Ratio 8.5 (12.0-20.0); Calcium, Blood 8.4 mg/dL (8.5-10.1); Creatinine, Blood 1.42 mg/dL (0.40-1.00); Potassium, Blood 4.3 mmol/L (3.5-5.5)
--- NOTE | 2023-06-26 06:41 | NUR ---
Shift Summary No c/o nausea tonight. Pt had a bowel movement and there was no visible blood or black/dark stool. Her AM Hgb lab was 7.9, up from the previous lab of 7.3. Pt is AOx4, independent in the room. Diet has been changed to clear liquid diet in anticipation of colonoscopy this Wednesday per report.
[2023-06-26 07:40] VITALS: BP 108/56
[2023-06-26 15:36] VITALS: BP 117/69
[2023-06-26 19:21] VITALS: BP 123/79
--- NOTE | 2023-06-26 20:03 | NUR ---
DAY SHIFT SUMMARY A/OX4. ABLE TO MAKE NEEDS KNOWN. PT STARTED BOWEL PREP AT [address] ORDER; PT CHANGED FROM CLEAR LIQUIDS TO WATER ONLY AT 1800. PT TO BE NPO AT MIDNIGHT. PT ASKED SEVERAL TIMES FOR FOOD TODAY; EDUCATION ON PROCEDURE. PT NOT TOLERATING BOWEL PREP. REPORTING NAUSEATED. ZOFRAN GIVEN. ENCOURAGED PT TO FINISH. GAVE REPORT TO ONCOMING NURSE.
[2023-06-27] VITALS (7 sets, daily range): BP systolic 105–133; BP diastolic 65–87
--- NOTE | 2023-06-27 11:46 | NUR ---
06/27/23 1146 Shahida Burch SEE ANESTHESIA RECORD FOR SEDATION
--- NOTE | 2023-06-27 18:22 | NUR ---
SHIFT SUMMARY PT AXO, COOPERATIVE WITH CARE THOUGH WITHDRAWN AND FLAT AFFECT. VSS. PT TOLERATING CARDIAC DIET. PT DENIES PAIN, SOB AND N/V. IV PATENT AND SALINE LOCKED. VSS. BED IN LOW POSITON, CALL LIGHT WITHIN REACH. NO ACUTE CHANGES THIS SHIFT.
[2023-06-28] MEDS ORDERED: LISI5 PO (02:39)
[2023-06-28] MEDS ORDERED: TRELEGY ELLIPT1 EACH INH (02:40)
[2023-06-28] MEDS ORDERED: Ventolin/Prove6.7 GM INH (02:40)
[2023-06-28 04:06] VITALS: BP 136/69
--- NOTE | 2023-06-28 06:42 | NUR ---
SHIFT SUMMERY. PT SEEMED TO BE RESTING WELL THIS NIGHT. CALL LIGHT IN REACH. FIRE SAFETY REVIEWED.
[2023-06-28 07:36] VITALS: BP 127/59
[2023-06-28 10:41] LABS: Hematocrit 27.2 % (33.0-51.0); Hemoglobin 7.8 g/dL (11.5-16.0)
[2023-06-28] MEDS ORDERED: CARV6.25 PO (14:39)
[2023-06-28] MEDS ORDERED: Acetaminophen650 M1 PO (14:39)
--- NOTE | 2023-06-28 16:18 | NUR ---
DISCHARGE SUMMARY PT AxOx4. PLEASANT AND COOPERATIVE WITH CARE. PT DISCHARGING HOME TODAY WITH FAMILY MEMBER. PT DENIES ANY PAIN, S/S OF BLEEDING AND REPORTS FEELING READY TO GO HOME TODAY. VITALS REVIEWED. PT WAS GIVEN DC INSTRUCTIONS INCLUDING FOLLOW UP INFORMATION, MEDICATION LIST AND PATIENT EDUCATION ON NEW MEDS AND DIAGNOSIS. PT VERBALIZED UNDERSTANDING. DENIES ANY FURTHER QUESTIONS AT THIS TIME. PT SAFELY ESCORTED OUT VIA WC WITH FAMILY AND THIS RN.
[2023-06-28] MEDS ORDERED: HUMALOG KW100 UNIT/1 SC (16:41)
== END 2023-06-28 15:00 | disposition home or self-care (01) | DRG 394 ==
LOC: ER 15:09 → MEDS 20:41
PROVIDERS: Internal Medicine; Internal Medicine Gastroenterology; Physician Assistant; ADMIT Nurse Practitioner Acute Care
PROC: 30233N1 Transfusion of Nonautologous Red Blood Cells into Peripheral Vein, Percutaneous Approach (ICD-10-PCS; 2023-06-24)
PROC: 0D5E8ZZ Destruction of Large Intestine, Via Natural or Artificial Opening Endoscopic (ICD-10-PCS; 2023-06-27)
PROC: 0DB98ZX Excision of Duodenum, Via Natural or Artificial Opening Endoscopic, Diagnostic (ICD-10-PCS; principal; 2023-06-27 08:00)
PROC: 0DB68ZX Excision of Stomach, Via Natural or Artificial Opening Endoscopic, Diagnostic (ICD-10-PCS; 2023-06-27 08:00)
DX: K63.81 Dieulafoy lesion of intestine (principal); D62 Acute posthemorrhagic anemia; K57.30 Diverticulosis of large intestine without perforation or abscess without bleeding; I25.10 Atherosclerotic heart disease of native coronary artery without angina pectoris; I12.9 Hypertensive chronic kidney disease with stage 1 through stage 4 chronic kidney disease, or unspecified chronic kidney disease; N18.30 Chronic kidney disease, stage 3 unspecified; F41.1 Generalized anxiety disorder; J44.9 Chronic obstructive pulmonary disease, unspecified; M10.9 Gout, unspecified; G43.909 Migraine, unspecified, not intractable, without status migrainosus; G89.29 Other chronic pain; K64.4 Residual hemorrhoidal skin tags; M54.50 Low back pain, unspecified; G47.30 Sleep apnea, unspecified; D63.1 Anemia in chronic kidney disease; E78.00 Pure hypercholesterolemia, unspecified; F15.11 Other stimulant abuse, in remission; D50.9 Iron deficiency anemia, unspecified; K25.9 Gastric ulcer, unspecified as acute or chronic, without hemorrhage or perforation; K21.9 Gastro-esophageal reflux disease without esophagitis; K44.9 Diaphragmatic hernia without obstruction or gangrene; I48.91 Unspecified atrial fibrillation; Z87.891 Personal history of nicotine dependence; Z79.51 Long term (current) use of inhaled steroids; Z86.19 Personal history of other infectious and parasitic diseases; I25.2 Old myocardial infarction; Z79.52 Long term (current) use of systemic steroids; Z86.73 Personal history of transient ischemic attack (TIA), and cerebral infarction without residual deficits; Z90.49 Acquired absence of other specified parts of digestive tract; Z98.51 Tubal ligation status; Z95.1 Presence of aortocoronary bypass graft; Z98.890 Other specified postprocedural states; Z87.01 Personal history of pneumonia (recurrent); Z86.74 Personal history of sudden cardiac arrest; Z79.01 Long term (current) use of anticoagulants; Z91.199 Patient's noncompliance with other medical treatment and regimen due to unspecified reason; Z95.5 Presence of coronary angioplasty implant and graft
CPT/HCPCS: 36415; 36430; 80048; 80053; 82272; 82728; 83540; 83550; 85014; 85018; 85025; 85027; 86850; 86900; 86901; 86923; 88305; 88342; 93005; 93010; 96374; 96375; 99284-25; A9270; C9113; J2405; J2704; J7030; J7120; P9016

== ENCOUNTER 2023-07-21 13:42 | Emergency (ER) | payer MEDICARE, OTHER ==
[~2023-07-21] VITALS: Ht 157.5 cm; Wt 59.0 kg
[~2023-07-21 13:42] MED LIST changes: +Acetaminophen650 M1 PO; +CARV6.25 PO; +HUMALOG KW100 UNIT/1 SC; +LISI5 PO; +TRELEGY ELLIPT1 EACH INH; +Ventolin/Prove6.7 GM INH
[2023-07-21 13:51] VITALS: BP 102/62
== END 2023-07-21 14:24 | disposition home or self-care (01) ==
LOC: ER 13:42
DX: S51.812A Laceration without foreign body of left forearm, initial encounter (principal); W01.10XA Fall on same level from slipping, tripping and stumbling with subsequent striking against unspecified object, initial encounter; Z79.899 Other long term (current) drug therapy; I48.91 Unspecified atrial fibrillation; K21.9 Gastro-esophageal reflux disease without esophagitis; I25.10 Atherosclerotic heart disease of native coronary artery without angina pectoris; I12.9 Hypertensive chronic kidney disease with stage 1 through stage 4 chronic kidney disease, or unspecified chronic kidney disease; E78.5 Hyperlipidemia, unspecified; N18.2 Chronic kidney disease, stage 2 (mild); G43.909 Migraine, unspecified, not intractable, without status migrainosus; Z87.891 Personal history of nicotine dependence
CPT/HCPCS: 99282

== ENCOUNTER 2023-07-21 22:34 | Emergency (ER) | payer MEDICARE, OTHER ==
[~2023-07-21] VITALS: Ht 157.5 cm; Wt 59.0 kg
[2023-07-21 23:00] VITALS: BP 111/74
== END 2023-07-21 23:40 | disposition home or self-care (01) ==
LOC: ER 22:34
DX: S51.812A Laceration without foreign body of left forearm, initial encounter (principal); T45.515A Adverse effect of anticoagulants, initial encounter; W22.03XA Walked into furniture, initial encounter; I48.91 Unspecified atrial fibrillation; K21.9 Gastro-esophageal reflux disease without esophagitis; I25.10 Atherosclerotic heart disease of native coronary artery without angina pectoris; E78.5 Hyperlipidemia, unspecified; I12.9 Hypertensive chronic kidney disease with stage 1 through stage 4 chronic kidney disease, or unspecified chronic kidney disease; N18.2 Chronic kidney disease, stage 2 (mild); Z87.891 Personal history of nicotine dependence; Z79.899 Other long term (current) drug therapy; Z79.01 Long term (current) use of anticoagulants
CPT/HCPCS: 12001; 99283-25

== ENCOUNTER 2023-08-05 00:41 | Emergency (ER) | payer MEDICARE, OTHER ==
[~2023-08-05] VITALS: Ht 157.5 cm; Wt 54.4 kg
[2023-08-05 01:30] LABS: BASOPHILS ABSOLUTE AUTO 0.03 K/mm3 (0.00-0.23); BASOPHILS PERCENT AUTO 0 % (0-2); EOSINOPHILS ABSOLUTE AUTO 0.36 K/mm3 (0.00-0.68); EOSINOPHILS PERCENT AUTO 3 % (0-6); Hematocrit 19.6 % (33.0-51.0); IMMATURE GRAN ABSOLUTE AUTO 0.05 K/mm3 (0.00-0.10); IMMATURE GRAN PERCENT AUTO 0 % (0-1); LYMPHOCYTES ABSOLUTE AUTO 1.21 K/mm3 (0.84-5.20); LYMPHOCYTES PERCENT AUTO 9 % (21-46); MONOCYTES ABSOLUTE AUTO 0.75 K/mm3 (0.16-1.47); MONOCYTES PERCENT AUTO 6 % (4-13); Mean Corpuscular HGB 21.2 pg (26.0-34.0); Mean Corpuscular HGB Conc 26.5 g/dL (31.5-36.5); Mean Corpuscular Volume 80 fL (80-100); Mean Platelet Volume 9.9 fL (9.1-12.4); NEUTROPHILS ABSOLUTE AUTO 10.67 K/mm3 (1.96-9.15); NEUTROPHILS PERCENT AUTO 82 % (41-73); NRBC ABSOLUTE 0.02 K/mm3 (0.00-0.02); NRBC Auto 0.2 /100 WBC (0.0-0.2); Platelet Count 451 K/mm3 (150-400); RDW Coefficient Variation 21.5 % (11.7-14.2); RDW Standard Deviation 59.7 fL (35.1-46.3); Red Blood Cell Count 2.45 M/mm3 (3.80-5.20); White Blood Cell Count 13.07 K/mm3 (4.00-11.30)
[2023-08-05 01:50] LABS: Hemoglobin 5.2 g/dL (11.5-16.0)
[2023-08-05 01:59] LABS: Albumin, Blood 2.8 g/dL (3.4-5.0); Albumin/Globulin Ratio 0.9 (0.8-1.8); Bilirubin, Total 0.3 mg/dL (0.1-1.0); Calcium, Blood 7.3 mg/dL (8.5-10.1); Creatinine, Blood 1.78 mg/dL (0.40-1.00); Potassium, Blood 5.1 mmol/L (3.5-5.5); Total Protein, Blood 5.8 g/dL (6.4-8.2)
[2023-08-05 05:30] VITALS: BP 131/67
== END 2023-08-05 06:06 ==
LOC: ER 00:41
PROVIDERS: Student in an Organized Health Care Education/Training Program
DX: K92.2 Gastrointestinal hemorrhage, unspecified (principal); D64.9 Anemia, unspecified; R11.2 Nausea with vomiting, unspecified; Z79.899 Other long term (current) drug therapy; I48.91 Unspecified atrial fibrillation; K21.9 Gastro-esophageal reflux disease without esophagitis; I25.10 Atherosclerotic heart disease of native coronary artery without angina pectoris; N18.2 Chronic kidney disease, stage 2 (mild); G43.909 Migraine, unspecified, not intractable, without status migrainosus; J44.9 Chronic obstructive pulmonary disease, unspecified; I12.9 Hypertensive chronic kidney disease with stage 1 through stage 4 chronic kidney disease, or unspecified chronic kidney disease; E78.5 Hyperlipidemia, unspecified; I25.2 Old myocardial infarction; Z87.891 Personal history of nicotine dependence
CPT/HCPCS: 36430; 71046; 80053; 83690; 84484; 85025; 86850; 86900; 86901; 86923; 93005; 93010; 96365; 96366; 96376; 99285-25; C9113; J7030; P9016

== ENCOUNTER 2023-08-15 20:37 | Emergency (ER) | payer MEDICARE, OTHER ==
[~2023-08-15] VITALS: Ht 157.5 cm; Wt 54.4 kg
[2023-08-15 21:29] LABS: BASOPHILS ABSOLUTE AUTO 0.06 K/mm3 (0.00-0.23); BASOPHILS PERCENT AUTO 1 % (0-2); EOSINOPHILS ABSOLUTE AUTO 0.32 K/mm3 (0.00-0.68); EOSINOPHILS PERCENT AUTO 4 % (0-6); Hematocrit 32.9 % (33.0-51.0); Hemoglobin 9.5 g/dL (11.5-16.0); IMMATURE GRAN ABSOLUTE AUTO 0.03 K/mm3 (0.00-0.10); IMMATURE GRAN PERCENT AUTO 0 % (0-1); LYMPHOCYTES ABSOLUTE AUTO 1.37 K/mm3 (0.84-5.20); LYMPHOCYTES PERCENT AUTO 16 % (21-46); MONOCYTES ABSOLUTE AUTO 0.72 K/mm3 (0.16-1.47); MONOCYTES PERCENT AUTO 8 % (4-13); Mean Corpuscular HGB 26.2 pg (26.0-34.0); Mean Corpuscular HGB Conc 28.9 g/dL (31.5-36.5); Mean Corpuscular Volume 91 fL (80-100); Mean Platelet Volume 9.4 fL (9.1-12.4); NEUTROPHILS ABSOLUTE AUTO 6.31 K/mm3 (1.96-9.15); NEUTROPHILS PERCENT AUTO 72 % (41-73); Platelet Count 391 K/mm3 (150-400); RDW Coefficient Variation 23.9 % (11.7-14.2); RDW Standard Deviation 77.1 fL (35.1-46.3); Red Blood Cell Count 3.63 M/mm3 (3.80-5.20); White Blood Cell Count 8.81 K/mm3 (4.00-11.30)
[2023-08-15 21:47] LABS: Albumin, Blood 3.1 g/dL (3.4-5.0); Albumin/Globulin Ratio 0.9 (0.8-1.8); Bilirubin, Total 0.3 mg/dL (0.1-1.0); Bun/Creatinine Ratio 17.3 (12.0-20.0); Calcium, Blood 8.1 mg/dL (8.5-10.1); Creatinine, Blood 1.33 mg/dL (0.40-1.00); Globulin, Blood 3.3 g/dL (2.2-4.0); Total Protein, Blood 6.4 g/dL (6.4-8.2)
[2023-08-16] VITALS: BP 148/64
== END 2023-08-16 00:15 | disposition home or self-care (01) ==
LOC: ER 20:37
PROVIDERS: Physician Assistant
DX: K92.2 Gastrointestinal hemorrhage, unspecified (principal); K44.9 Diaphragmatic hernia without obstruction or gangrene; D64.9 Anemia, unspecified; Z79.01 Long term (current) use of anticoagulants; I48.91 Unspecified atrial fibrillation; K21.9 Gastro-esophageal reflux disease without esophagitis; I25.10 Atherosclerotic heart disease of native coronary artery without angina pectoris; N18.2 Chronic kidney disease, stage 2 (mild); G43.909 Migraine, unspecified, not intractable, without status migrainosus; J44.9 Chronic obstructive pulmonary disease, unspecified; I12.9 Hypertensive chronic kidney disease with stage 1 through stage 4 chronic kidney disease, or unspecified chronic kidney disease; I25.2 Old myocardial infarction; Z87.891 Personal history of nicotine dependence
CPT/HCPCS: 80053; 85025; 96365; 96376; 99284-25; C9113

== ENCOUNTER 2023-08-25 01:25 | Day surgery (SDC) | payer MEDICARE, OTHER | END 2023-08-25 23:26 | disposition home or self-care (01) | LOC: WOUND 01:25 | DX: S81.802A Unspecified open wound, left lower leg, initial encounter (principal); I73.9 Peripheral vascular disease, unspecified; I12.9 Hypertensive chronic kidney disease with stage 1 through stage 4 chronic kidney disease, or unspecified chronic kidney disease; N18.32 Chronic kidney disease, stage 3b; I87.2 Venous insufficiency (chronic) (peripheral); J44.9 Chronic obstructive pulmonary disease, unspecified; R41.89 Other symptoms and signs involving cognitive functions and awareness; F33.1 Major depressive disorder, recurrent, moderate; Z77.22 Contact with and (suspected) exposure to environmental tobacco smoke (acute) (chronic); X58.XXXA Exposure to other specified factors, initial encounter | CPT/HCPCS: G0463 ==

== ENCOUNTER 2023-09-01 04:59 | Day surgery (SDC) | payer MEDICARE, OTHER | END 2023-09-01 23:09 | disposition home or self-care (01) | LOC: WOUND 04:59 | DX: S81.802A Unspecified open wound, left lower leg, initial encounter (principal); I10 Essential (primary) hypertension; I73.9 Peripheral vascular disease, unspecified; I87.2 Venous insufficiency (chronic) (peripheral); D50.9 Iron deficiency anemia, unspecified; N18.32 Chronic kidney disease, stage 3b; F33.1 Major depressive disorder, recurrent, moderate; J44.9 Chronic obstructive pulmonary disease, unspecified; R41.89 Other symptoms and signs involving cognitive functions and awareness | CPT/HCPCS: A9270; G0463 ==

== ENCOUNTER 2023-09-08 02:28 | Day surgery (SDC) | payer MEDICARE, OTHER | END 2023-09-08 22:51 | disposition home or self-care (01) | LOC: WOUND 02:28 | DX: I70.248 Atherosclerosis of native arteries of left leg with ulceration of other part of lower leg (principal); L97.821 Non-pressure chronic ulcer of other part of left lower leg limited to breakdown of skin; I87.2 Venous insufficiency (chronic) (peripheral); R41.89 Other symptoms and signs involving cognitive functions and awareness; I10 Essential (primary) hypertension; D50.9 Iron deficiency anemia, unspecified; N18.32 Chronic kidney disease, stage 3b; J44.9 Chronic obstructive pulmonary disease, unspecified | CPT/HCPCS: G0463 ==

== ENCOUNTER 2023-09-15 04:45 | Day surgery (SDC) | payer MEDICARE, OTHER | END 2023-09-15 23:30 | disposition home or self-care (01) | LOC: WOUND 04:45 | DX: L97.822 Non-pressure chronic ulcer of other part of left lower leg with fat layer exposed (principal); S81.802A Unspecified open wound, left lower leg, initial encounter; X58.XXXA Exposure to other specified factors, initial encounter; I73.9 Peripheral vascular disease, unspecified; I87.2 Venous insufficiency (chronic) (peripheral); D50.9 Iron deficiency anemia, unspecified; I12.9 Hypertensive chronic kidney disease with stage 1 through stage 4 chronic kidney disease, or unspecified chronic kidney disease; N18.32 Chronic kidney disease, stage 3b; F33.1 Major depressive disorder, recurrent, moderate; J44.9 Chronic obstructive pulmonary disease, unspecified | CPT/HCPCS: A9270; G0463 ==

== ENCOUNTER 2023-09-17 03:19 | Observation (INO) | payer MEDICARE, OTHER ==
[~2023-09-17] VITALS: Ht 157.5 cm; Wt 58.6 kg
[2023-09-17 04:01] LABS: BASOPHILS ABSOLUTE AUTO 0.04 K/mm3 (0.00-0.23); BASOPHILS PERCENT AUTO 1 % (0-2); EOSINOPHILS ABSOLUTE AUTO 0.35 K/mm3 (0.00-0.68); EOSINOPHILS PERCENT AUTO 4 % (0-6); Hematocrit 27.7 % (33.0-51.0); Hemoglobin 7.8 g/dL (11.5-16.0); IMMATURE GRAN ABSOLUTE AUTO 0.03 K/mm3 (0.00-0.10); IMMATURE GRAN PERCENT AUTO 0 % (0-1); LYMPHOCYTES PERCENT AUTO 16 % (21-46); MONOCYTES ABSOLUTE AUTO 0.88 K/mm3 (0.16-1.47); MONOCYTES PERCENT AUTO 10 % (4-13); Mean Corpuscular HGB Conc 28.2 g/dL (31.5-36.5); Mean Corpuscular Volume 96 fL (80-100); Mean Platelet Volume 9.1 fL (9.1-12.4); NEUTROPHILS PERCENT AUTO 69 % (41-73); Platelet Count 406 K/mm3 (150-400); RDW Coefficient Variation 18.7 % (11.7-14.2); RDW Standard Deviation 66.6 fL (35.1-46.3); Red Blood Cell Count 2.89 M/mm3 (3.80-5.20)
[2023-09-17 04:31] LABS: Albumin, Blood 2.6 g/dL (3.4-5.0); Albumin/Globulin Ratio 0.8 (0.8-1.8); Bilirubin, Total 0.2 mg/dL (0.1-1.0); Bun/Creatinine Ratio 20.5 (12.0-20.0); Calcium, Blood 7.7 mg/dL (8.5-10.1); Creatinine, Blood 1.51 mg/dL (0.40-1.00); Globulin, Blood 3.4 g/dL (2.2-4.0); Potassium, Blood 5.4 mmol/L (3.5-5.5)
[2023-09-17 10:41] LABS: Hematocrit 33.2 % (33.0-51.0); Hemoglobin 10.1 g/dL (11.5-16.0)
[2023-09-17] MEDS ORDERED: Ventolin/Prove6.7 GM INH (13:12)
[2023-09-17] MEDS ORDERED: PANTOPRAZOLE SO40 M2 PO (13:13)
[2023-09-17 15:00] VITALS: BP 150/108
[2023-09-17 15:21] VITALS: BP 158/78
[2023-09-17 15:29] LABS: Hematocrit 31.2 % (33.0-51.0); Hemoglobin 9.6 g/dL (11.5-16.0)
--- NOTE | 2023-09-17 19:12 | NUR ---
SHIFT SUMMARY PT HAS DONE WELL SINCE ARRIVAL TO UNIT. PT HAS HAD NO INCREASED ABD PAIN, OR EMESIS SINCE ARRIVAL. PROTONIX GTT INFUSING. PT INDEPENDENT IN ROOM. NPO AT THIS TIME, AWAITING TX TO [facility] FOR GI CONSULT
[2023-09-17 20:10] VITALS: BP 131/75
--- NOTE | 2023-09-17 21:54 | NUR ---
UPDATE PT REQUESTED TRAZADONE THAT SHE REPORTED TAKING NAV NIGHT BEFORE BED, MED NOT ON PT EMAR. THIS RN CONTACTED RESIDENT MD. MD ORDERED TO HOLD MED AT THIS TIME PT IS NPO.
[2023-09-17 22:46] LABS: Hematocrit 32.5 % (33.0-51.0)
[2023-09-17 23:48] VITALS: BP 136/85
[2023-09-18 04:13] VITALS: BP 127/73
[2023-09-18 04:29] LABS: Hematocrit 31.3 % (33.0-51.0); Hemoglobin 9.5 g/dL (11.5-16.0); Mean Corpuscular HGB 27.9 pg (26.0-34.0); Mean Corpuscular HGB Conc 30.4 g/dL (31.5-36.5); Mean Corpuscular Volume 92 fL (80-100); Platelet Count 370 K/mm3 (150-400); RDW Coefficient Variation 18.2 % (11.7-14.2); White Blood Cell Count 7.19 K/mm3 (4.00-11.30)
--- NOTE | 2023-09-18 04:46 | NUR ---
SHIFT SUMMARY PT A/OX4 AND COOPERATIVE OF CARE. PT ABLE TO EXPRESS NEEDS AND CALLS APPROPIATLEY. PT VSS THROUGHOUT SHIFT WITH O2 SATS IN THE 90'S ON RA. NO REPORT OF CHEST PAIN/PRESSURE THROUGHOUT SHIFT. NO REPORT OF SOB/DYSPNEA THROUGHOUT SHIFT. PT INDEPENDENT IN BED. PT SBA TO THE RESTROOM, TOLERATES WELL. LEFT MADDOX DRESSING C/D/I, NO REPORT OF PAIN TO THE LEFT MADDOX OR ABD. PROTONIX GTT RUNNING PER ORDER. PT AWAINTING COBRA TRANSFER TO [facility] FOR GI MD.
[2023-09-18 05:12] LABS: Bun/Creatinine Ratio 14.3 (12.0-20.0); Calcium, Blood 7.6 mg/dL (8.5-10.1); Creatinine, Blood 1.33 mg/dL (0.40-1.00); Potassium, Blood 4.5 mmol/L (3.5-5.5)
[2023-09-18 08:43] VITALS: BP 114/76
--- NOTE | 2023-09-18 12:16 | NUR ---
PATIENT TRANSFERRED TO ROOM 208 ON SURGICAL FLOOR; REPORT TO ANA BURGOS. PATIENT LEFT FLOOR VIA WHEELCHAIR ESCORT WITH PROTONIX GTT RUNNING, ALL VALUABLES AND BINDER.
--- NOTE | 2023-09-18 13:27 | NUR ---
PT TX TO UNIT AT APROX 1245. PROTONIX GTT RUNNING PER EMAR. PT INDEPENDENT TO BATHROOM. A/O, USING CALL LIGHT APPROPRIATLY.DRESSING CHANGE DONE UPON ARRIVAL.
[2023-09-18 14:15] VITALS: BP 135/73
[2023-09-18 19:54] VITALS: BP 169/87
--- NOTE | 2023-09-18 21:18 | NUR ---
HOSPITALIST PT CONCERNED ABOUT HER HOME MEDICATION REGIMEN, SHE IS FEELING ANXIOUS AND STATES SHE WOULD LIKE TO START TAKING HER ZYPREXA & TRAZADONE TONIGHT IF POSSIBLE, HOSPITALIST NOTIFIED, ELIIQUIS & PLAVIX WILL CONTINUE TO HELD, TO ASSESS MED REC.
--- NOTE | 2023-09-19 05:08 | NUR ---
SUMMARY NO ACUTE CHANGES NOTED THROUGH THE NIGHT, VSS, ON RA, INDEPENDENT IN ROOM, DENIES NAUSEA/PAIN, NO STOOLS REPORTED, TOLERATING PO INTAKE, PROTONIX GTT INFUSING PER EMAR, HOME MEDS ORDERED BY HOSPITALIST, LEE & PLAVIX CONTINUE TO BE HELD, RESTING QUIETLY AT THIS TIME, CALL LIGHT IN REACH, WCTM & REPORT TO DAY RN
[2023-09-19 05:38] VITALS: BP 170/99
[2023-09-19 05:59] LABS: Hematocrit 32.4 % (33.0-51.0); Hemoglobin 9.6 g/dL (11.5-16.0); Mean Corpuscular HGB 27.6 pg (26.0-34.0); Mean Corpuscular HGB Conc 29.6 g/dL (31.5-36.5); Mean Corpuscular Volume 93 fL (80-100); Mean Platelet Volume 9.3 fL (9.1-12.4); Platelet Count 373 K/mm3 (150-400); RDW Coefficient Variation 17.7 % (11.7-14.2); RDW Standard Deviation 59.2 fL (35.1-46.3); Red Blood Cell Count 3.48 M/mm3 (3.80-5.20); White Blood Cell Count 6.97 K/mm3 (4.00-11.30)
[2023-09-19 06:10] VITALS: BP 152/83
[2023-09-19 07:05] VITALS: BP 135/71
[2023-09-19 07:07] VITALS: BP 135/71
[2023-09-19 15:39] VITALS: BP 137/77
--- NOTE | 2023-09-19 16:35 | NUR ---
SHIFT SUMMARY PT DISCHARGED HOME FROM UNIT AT APROX 1615. PT GIVEN WRITTEN AND VERBAL DC INSTRUCTIONS AND VERBALIZED UNDERSTANDING OF THESE INSTRUCTIONS. IV REMOVED. DECLINED ASSISTANCE TO PRIVATE VEHICLE. PT VERBALIZED UNDETSTANDING TO DC ELAQUIS AND PLAVIX UNTIL CLEARED BY PCP.
== END 2023-09-19 16:21 | disposition home or self-care (01) ==
LOC: ER 03:19 → ERHOLD 03:20 → PCU 15:24 → SURS 09-18 12:33
PROVIDERS: Emergency Medicine; ADMIT Internal Medicine
DX: D62 Acute posthemorrhagic anemia (principal); I48.91 Unspecified atrial fibrillation; K21.9 Gastro-esophageal reflux disease without esophagitis; I25.10 Atherosclerotic heart disease of native coronary artery without angina pectoris; I12.9 Hypertensive chronic kidney disease with stage 1 through stage 4 chronic kidney disease, or unspecified chronic kidney disease; N18.30 Chronic kidney disease, stage 3 unspecified; G43.909 Migraine, unspecified, not intractable, without status migrainosus; J44.9 Chronic obstructive pulmonary disease, unspecified; E78.5 Hyperlipidemia, unspecified; I25.2 Old myocardial infarction; Z87.891 Personal history of nicotine dependence; Z95.1 Presence of aortocoronary bypass graft
CPT/HCPCS: 36415; 36430; 80048; 80053; 82272; 85014; 85018; 85025; 85027; 86850; 86900; 86901; 86923; 93005; 93010; 96365; 96376; 99285-25; A9270; C9113; G0378; J7030; P9016

== ENCOUNTER 2023-09-22 01:52 | Day surgery (SDC) | payer MEDICARE, OTHER ==
[~2023-09-22 01:52] MED LIST changes: +PANTOPRAZOLE SO40 M2 PO
== END 2023-09-22 22:54 | disposition home or self-care (01) ==
LOC: WOUND 01:52
DX: L97.822 Non-pressure chronic ulcer of other part of left lower leg with fat layer exposed (principal); S81.802A Unspecified open wound, left lower leg, initial encounter; X58.XXXA Exposure to other specified factors, initial encounter; I73.9 Peripheral vascular disease, unspecified; I87.2 Venous insufficiency (chronic) (peripheral); D50.9 Iron deficiency anemia, unspecified; I12.9 Hypertensive chronic kidney disease with stage 1 through stage 4 chronic kidney disease, or unspecified chronic kidney disease; N18.32 Chronic kidney disease, stage 3b; F33.1 Major depressive disorder, recurrent, moderate; J44.9 Chronic obstructive pulmonary disease, unspecified
CPT/HCPCS: A9270; G0463

== ENCOUNTER 2023-09-29 06:05 | Day surgery (SDC) | payer MEDICARE, OTHER | END 2023-09-29 23:02 | disposition home or self-care (01) | LOC: WOUND 06:05 | DX: Z09 Encounter for follow-up examination after completed treatment for conditions other than malignant neoplasm (principal); I73.9 Peripheral vascular disease, unspecified; D50.9 Iron deficiency anemia, unspecified; N18.32 Chronic kidney disease, stage 3b; I12.9 Hypertensive chronic kidney disease with stage 1 through stage 4 chronic kidney disease, or unspecified chronic kidney disease; F33.1 Major depressive disorder, recurrent, moderate; J44.9 Chronic obstructive pulmonary disease, unspecified; R41.89 Other symptoms and signs involving cognitive functions and awareness | CPT/HCPCS: G0463 ==

== ENCOUNTER 2023-11-01 00:26 | Day surgery (SDC) | payer MEDICARE, OTHER | END 2023-11-01 22:55 | disposition home or self-care (01) | LOC: WOUND 00:26 | DX: S81.802A Unspecified open wound, left lower leg, initial encounter (principal); I73.9 Peripheral vascular disease, unspecified; I87.2 Venous insufficiency (chronic) (peripheral); D50.9 Iron deficiency anemia, unspecified; I12.9 Hypertensive chronic kidney disease with stage 1 through stage 4 chronic kidney disease, or unspecified chronic kidney disease; N18.32 Chronic kidney disease, stage 3b; F33.1 Major depressive disorder, recurrent, moderate; J44.9 Chronic obstructive pulmonary disease, unspecified; R41.89 Other symptoms and signs involving cognitive functions and awareness; X58.XXXA Exposure to other specified factors, initial encounter | CPT/HCPCS: G0463 ==

== ENCOUNTER 2023-11-10 05:16 | Day surgery (SDC) | payer MEDICARE, OTHER | END 2023-11-10 22:54 | disposition home or self-care (01) | LOC: WOUND 05:16 | DX: S81.802A Unspecified open wound, left lower leg, initial encounter (principal); X58.XXXA Exposure to other specified factors, initial encounter; I73.9 Peripheral vascular disease, unspecified; I87.2 Venous insufficiency (chronic) (peripheral); D50.9 Iron deficiency anemia, unspecified; I12.9 Hypertensive chronic kidney disease with stage 1 through stage 4 chronic kidney disease, or unspecified chronic kidney disease; N18.32 Chronic kidney disease, stage 3b; F33.1 Major depressive disorder, recurrent, moderate; J44.9 Chronic obstructive pulmonary disease, unspecified; R41.89 Other symptoms and signs involving cognitive functions and awareness; D63.1 Anemia in chronic kidney disease; N25.81 Secondary hyperparathyroidism of renal origin; K92.89 Other specified diseases of the digestive system; E78.00 Pure hypercholesterolemia, unspecified; R76.9 Abnormal immunological finding in serum, unspecified; R94.6 Abnormal results of thyroid function studies | CPT/HCPCS: 36415; 80069; 83036; 85018; 85025; A9270; G0463 ==

== ENCOUNTER 2023-11-22 04:31 | Day surgery (SDC) | payer MEDICARE, OTHER | END 2023-11-22 22:43 | disposition home or self-care (01) | LOC: WOUND 04:31 | DX: S81.802A Unspecified open wound, left lower leg, initial encounter (principal); I10 Essential (primary) hypertension; I73.9 Peripheral vascular disease, unspecified; I87.2 Venous insufficiency (chronic) (peripheral); D50.9 Iron deficiency anemia, unspecified; N18.32 Chronic kidney disease, stage 3b; F33.1 Major depressive disorder, recurrent, moderate; J44.9 Chronic obstructive pulmonary disease, unspecified; R41.89 Other symptoms and signs involving cognitive functions and awareness | CPT/HCPCS: G0463 ==

== ENCOUNTER 2023-12-02 12:05 | Emergency (ER) | payer OTHER, MEDICARE ==
[~2023-12-02] VITALS: Ht 157.5 cm; Wt 54.4 kg
[2023-12-02 12:45] VITALS: BP 95/61
[2023-12-02] MEDS ORDERED: LIDOCAINE1 EACH TOP (15:28)
== END 2023-12-02 15:44 | disposition home or self-care (01) ==
LOC: ER 12:05
DX: R07.81 Pleurodynia (principal); W01.10XA Fall on same level from slipping, tripping and stumbling with subsequent striking against unspecified object, initial encounter; Z79.899 Other long term (current) drug therapy; I48.91 Unspecified atrial fibrillation; K21.9 Gastro-esophageal reflux disease without esophagitis; I25.10 Atherosclerotic heart disease of native coronary artery without angina pectoris; N18.2 Chronic kidney disease, stage 2 (mild); J44.9 Chronic obstructive pulmonary disease, unspecified; I12.9 Hypertensive chronic kidney disease with stage 1 through stage 4 chronic kidney disease, or unspecified chronic kidney disease; E78.5 Hyperlipidemia, unspecified; Z87.891 Personal history of nicotine dependence
CPT/HCPCS: 71046; 90471; 90714; 99283-25; A9270

== ENCOUNTER 2024-05-07 15:40 | Emergency (ER) | payer MEDICARE, OTHER ==
[~2024-05-07] VITALS: Ht 157.5 cm; Wt 56.7 kg
[~2024-05-07 15:40] MED LIST changes: +LIDOCAINE1 EACH TOP
[2024-05-07 16:04] LABS: BASOPHILS ABSOLUTE AUTO 0.05 K/mm3 (0.00-0.23); BASOPHILS PERCENT AUTO 1 % (0-2); EOSINOPHILS ABSOLUTE AUTO 0.39 K/mm3 (0.00-0.68); EOSINOPHILS PERCENT AUTO 4 % (0-6); Hematocrit 39.6 % (33.0-51.0); Hemoglobin 11.7 g/dL (11.5-16.0); IMMATURE GRAN ABSOLUTE AUTO 0.01 K/mm3 (0.00-0.10); IMMATURE GRAN PERCENT AUTO 0 % (0-1); LYMPHOCYTES PERCENT AUTO 15 % (21-46); MONOCYTES ABSOLUTE AUTO 0.61 K/mm3 (0.16-1.47); MONOCYTES PERCENT AUTO 6 % (4-13); Mean Corpuscular HGB 27.7 pg (26.0-34.0); Mean Corpuscular HGB Conc 29.5 g/dL (31.5-36.5); Mean Corpuscular Volume 94 fL (80-100); Mean Platelet Volume 9.3 fL (9.1-12.4); NEUTROPHILS ABSOLUTE AUTO 7.19 K/mm3 (1.96-9.15); NEUTROPHILS PERCENT AUTO 75 % (41-73); Platelet Count 337 K/mm3 (150-400); RDW Coefficient Variation 14.4 % (11.7-14.2); RDW Standard Deviation 49.4 fL (35.1-46.3); Red Blood Cell Count 4.22 M/mm3 (3.80-5.20); White Blood Cell Count 9.65 K/mm3 (4.00-11.30)
[2024-05-07 16:47] LABS: Albumin, Blood 2.7 g/dL (3.4-5.0); Albumin/Globulin Ratio 0.9 (0.8-1.8); Bilirubin, Total 0.2 mg/dL (0.1-1.0); Bun/Creatinine Ratio 2.4 (12.0-20.0); Calcium, Blood 7.6 mg/dL (8.5-10.1); Creatinine, Blood 1.26 mg/dL (0.40-1.00); Globulin, Blood 2.9 g/dL (2.2-4.0); Potassium, Blood 3.2 mmol/L (3.5-5.5); Total Protein, Blood 5.6 g/dL (6.4-8.2)
[2024-05-07] MEDS ORDERED: IRON SUPPLEMENT (16:50)
[2024-05-07] MEDS ORDERED: VITAMIN C125 MG (16:50)
[2024-05-07] MEDS ORDERED: Potassium Chloride 20 MEQ TabCR PO ONE (18:10)
[2024-05-07 18:23] VITALS: BP 160/107
[2024-05-07] MEDS ORDERED: Ondansetron HCl 2 MG / ML 2ML Vial IV PRN (18:30)
== END 2024-05-07 18:50 | disposition home or self-care (01) ==
LOC: ER 15:40
PROVIDERS: Physician Assistant
DX: I48.91 Unspecified atrial fibrillation (principal); E87.6 Hypokalemia; I12.9 Hypertensive chronic kidney disease with stage 1 through stage 4 chronic kidney disease, or unspecified chronic kidney disease; N18.2 Chronic kidney disease, stage 2 (mild); G43.909 Migraine, unspecified, not intractable, without status migrainosus; J44.9 Chronic obstructive pulmonary disease, unspecified; E78.5 Hyperlipidemia, unspecified; Z87.891 Personal history of nicotine dependence; Z86.73 Personal history of transient ischemic attack (TIA), and cerebral infarction without residual deficits; I25.2 Old myocardial infarction; Z79.51 Long term (current) use of inhaled steroids; Z79.02 Long term (current) use of antithrombotics/antiplatelets; Z79.899 Other long term (current) drug therapy
CPT/HCPCS: 71046; 80053; 84484; 85025; 93005; 93010; 96374; 99285-25; A9270; J2405

== ENCOUNTER 2024-05-12 03:17 | Day surgery (SDC) | payer MEDICARE, OTHER ==
[~2024-05-12 03:17] MED LIST changes: +IRON SUPPLEMENT; +VITAMIN C125 MG
== END 2024-05-12 23:15 | disposition home or self-care (01) ==
LOC: WOUND 03:17
DX: S81.802D Unspecified open wound, left lower leg, subsequent encounter (principal); I73.9 Peripheral vascular disease, unspecified; I87.2 Venous insufficiency (chronic) (peripheral); R41.89 Other symptoms and signs involving cognitive functions and awareness; I12.9 Hypertensive chronic kidney disease with stage 1 through stage 4 chronic kidney disease, or unspecified chronic kidney disease; N18.32 Chronic kidney disease, stage 3b; X58.XXXD Exposure to other specified factors, subsequent encounter
CPT/HCPCS: A6213; G0463

== ENCOUNTER 2024-05-19 02:34 | Day surgery (SDC) | payer MEDICARE, OTHER | END 2024-05-19 23:17 | disposition home or self-care (01) | LOC: WOUND 02:34 | DX: S81.802D Unspecified open wound, left lower leg, subsequent encounter (principal); I73.9 Peripheral vascular disease, unspecified; I87.2 Venous insufficiency (chronic) (peripheral); I12.9 Hypertensive chronic kidney disease with stage 1 through stage 4 chronic kidney disease, or unspecified chronic kidney disease; N18.32 Chronic kidney disease, stage 3b | CPT/HCPCS: A6213; G0463 ==

== ENCOUNTER 2024-05-26 01:39 | Day surgery (SDC) | payer MEDICARE, OTHER | END 2024-05-26 22:43 | disposition home or self-care (01) | LOC: WOUND 01:39 | DX: S81.802D Unspecified open wound, left lower leg, subsequent encounter (principal); I73.9 Peripheral vascular disease, unspecified; I87.2 Venous insufficiency (chronic) (peripheral); I12.9 Hypertensive chronic kidney disease with stage 1 through stage 4 chronic kidney disease, or unspecified chronic kidney disease; N18.32 Chronic kidney disease, stage 3b; R41.89 Other symptoms and signs involving cognitive functions and awareness | CPT/HCPCS: A6213; G0463 ==

== ENCOUNTER 2024-07-04 10:05 | Inpatient (IN) | payer MEDICARE, OTHER ==
[~2024-07-04] VITALS: Ht 157.5 cm; Wt 65.7 kg
[~2024-07-04 10:05] MED LIST changes: -VITAMIN C125 MG; +VITAMIN C125 MG PO
[2024-07-04] MEDS ORDERED: Ondansetron HCl 2 MG / ML 2ML Vial IV ONE (10:15)
[2024-07-04 11:21] LABS: BASOPHILS ABSOLUTE AUTO 0.04 K/mm3 (0.00-0.23); BASOPHILS PERCENT AUTO 1 % (0-2); EOSINOPHILS ABSOLUTE AUTO 0.24 K/mm3 (0.00-0.68); EOSINOPHILS PERCENT AUTO 3 % (0-6); Hematocrit 28.2 % (33.0-51.0); Hemoglobin 8.4 g/dL (11.5-16.0); IMMATURE GRAN ABSOLUTE AUTO 0.05 K/mm3 (0.00-0.10); IMMATURE GRAN PERCENT AUTO 1 % (0-1); LYMPHOCYTES ABSOLUTE AUTO 1.36 K/mm3 (0.84-5.20); LYMPHOCYTES PERCENT AUTO 16 % (21-46); MONOCYTES ABSOLUTE AUTO 0.43 K/mm3 (0.16-1.47); MONOCYTES PERCENT AUTO 5 % (4-13); Mean Corpuscular HGB 27.1 pg (26.0-34.0); Mean Corpuscular HGB Conc 29.8 g/dL (31.5-36.5); Mean Corpuscular Volume 91 fL (80-100); Mean Platelet Volume 9.7 fL (9.1-12.4); NEUTROPHILS ABSOLUTE AUTO 6.24 K/mm3 (1.96-9.15); NEUTROPHILS PERCENT AUTO 75 % (41-73); Platelet Count 351 K/mm3 (150-400); RDW Coefficient Variation 18.5 % (11.7-14.2); RDW Standard Deviation 59.5 fL (35.1-46.3); White Blood Cell Count 8.36 K/mm3 (4.00-11.30)
[2024-07-04 11:32] LABS: International Normalized Ratio 1.12; Prothrombin Time Results 11.9 Sec (9.7-11.5)
[2024-07-04 11:51] LABS: Albumin, Blood 2.8 g/dL (3.4-5.0); Albumin/Globulin Ratio 0.8 (0.8-1.8); Bilirubin, Total 0.4 mg/dL (0.1-1.0); Bun/Creatinine Ratio 20.1 (12.0-20.0); Calcium, Blood 8.1 mg/dL (8.5-10.1); Creatinine, Blood 1.39 mg/dL (0.40-1.00); Globulin, Blood 3.6 g/dL (2.2-4.0); Potassium, Blood 4.3 mmol/L (3.5-5.5); Total Protein, Blood 6.4 g/dL (6.4-8.2)
[2024-07-04] MEDS ORDERED: Pantoprazole Sodium 40 MG Injection IV ONE (12:15)
[2024-07-04] MEDS ORDERED: Ondansetron HCl 2 MG / ML 2ML Vial IV PRN (13:45)
[2024-07-04] MEDS ORDERED: Acetaminophen 325 MG TABLET PO PRN ×2 (13:50)
[2024-07-04] MEDS ORDERED: Albuterol 2.5 MG/3 ML VIAL INH PRN (13:50)
[2024-07-04] MEDS ORDERED: NS 1,000 ML IV SCH (13:50)
[2024-07-04] MEDS ORDERED: Pantoprazole Sodium 40 MG in NS 50 ML IV SCH (14:00)
[2024-07-04 16:20] VITALS: BP 180/81
[2024-07-04] MEDS ORDERED: Carvedilol 6.25 MG Tab PO SCH (17:00)
[2024-07-04 17:44] LABS: Hematocrit 26.5 % (33.0-51.0)
--- NOTE | 2024-07-04 17:46 | NUR ---
SHIFT SUMMARY PT ARRIVES FROM ER VIA GURNEY AND WAS ABLE TO TRANSFER TO HOSPITAL BED WITH SBA. PT PLACED ON TELE AND VS OBTAINED. PT WAS HYPERTENSIVE AND WAS MEDICATED PER EMAR ORDERS. PT HAS A WOUND TO LLE THAT WAS CLEANED AND DRESSED. PT BECAME TACHY IN THE 120'S WHEN SHE AMBULATED TO THE BATHROOM. DR JIMENEZ WOULD LIKE PT TO BE ON A CLEAR LIQUID DIET FOR POSSIBLE SURGERY OF H&H DROPS. PT HAS HAD NO SIGNIFICANT MEDICAL CHANGES SINCE ARRIVAL. NO DISTRESS NOTED AT THIS TIME.
[2024-07-04 18:00] VITALS: BP 159/85
[2024-07-04 18:15] LABS: Percent Saturation 15.8 % (15.0-50.0)
[2024-07-04 20:49] VITALS: BP 120/66
[2024-07-04] MEDS ORDERED: Mirtazapine 15 MG Tab PO SCH (21:00)
[2024-07-04] MEDS ORDERED: Atorvastatin 40 MG Tab PO SCH (21:00)
[2024-07-04] MEDS ORDERED: OLANZapine 10 MG Tab PO SCH (21:00)
[2024-07-04] MEDS ORDERED: TRELEGY ELLIPTA INHALER INH SCH (21:00)
[2024-07-04] MEDS ORDERED: TraZODone HCl 50 MG Tab PO SCH (21:00)
[2024-07-05] VITALS (13 sets, daily range): BP systolic 117–196; BP diastolic 56–97
[2024-07-05 04:54] LABS: Hematocrit 24.5 % (33.0-51.0); Hemoglobin 7.3 g/dL (11.5-16.0); Mean Corpuscular HGB 26.8 pg (26.0-34.0); Mean Corpuscular HGB Conc 29.8 g/dL (31.5-36.5); Mean Corpuscular Volume 90 fL (80-100); Mean Platelet Volume 9.7 fL (9.1-12.4); Platelet Count 279 K/mm3 (150-400); RDW Coefficient Variation 18.6 % (11.7-14.2); RDW Standard Deviation 60.2 fL (35.1-46.3); Red Blood Cell Count 2.72 M/mm3 (3.80-5.20); White Blood Cell Count 7.14 K/mm3 (4.00-11.30)
[2024-07-05 05:03] LABS: Calcium, Blood 7.9 mg/dL (8.5-10.1); Creatinine, Blood 1.22 mg/dL (0.40-1.00); Potassium, Blood 3.8 mmol/L (3.5-5.5)
[2024-07-05] MEDS ORDERED: TRELEGY ELLIPTA INHALER INH SCH (05:17)
[2024-07-05] MEDS ORDERED: Pantoprazole Sodium 40 MG Injection ONE (06:15)
[2024-07-05] MEDS ORDERED: NS 50 ML IV ONE (06:15)
--- NOTE | 2024-07-05 06:44 | NUR ---
SHIFT SUMMARY ASSUMED CARE OF PT AT 1900. PT WITH FAMILY, A&O3 AT BASELINE AND VSS. ASSISTED PT TO RR THROUGH OUT THE NIGHT. NO BM REPORTED. PT REFUSED SCD PLACEMENT. UNEVENTFUL NIGHT.
[2024-07-05] MEDS ORDERED: Carvedilol 6.25 MG Tab PO SCH (08:00)
[2024-07-05] MEDS ORDERED: Ascorbic Acid 250 MG Chew PO SCH (09:00)
[2024-07-05] MEDS ORDERED: Pantoprazole Sodium 40 MG Injection IV SCH (09:00)
[2024-07-05] MEDS ORDERED: Lisinopril 5 MG Tab PO SCH ×2 (09:00)
[2024-07-05] MEDS ORDERED: Allopurinol 100 MG Tab PO SCH (09:00)
[2024-07-05] MEDS ORDERED: Citalopram Hydrobromide 20 MG Tab PO SCH (09:00)
[2024-07-05] MEDS ORDERED: NS 500 ML IV SCH (10:20)
--- NOTE | 2024-07-05 11:29 | NUR ---
MEDICATION ERROR UPDATE THIS RN NOTIFIED BY ADEEL IN RT THAT PT DID NOT HAVE A TRELEGY HOME MED IN THE PT'S LOCK BOX NOR IN THE PT'S ROOM. RT ALSO INFORMED THIS RN THAT THE ORDR WAS PUT IN A NURSE ORDER TO BE GIVEN AND THAT THE MEDICATION WAS CHARTED GIVEN DURING THE NIGHT. THIS RN CHECKED PT LOCK BOX AND FOUND DULERA INHALER FROM PREVIOUS PT THAT WAS IN ROOM. PT ASKED IF SHE RECIEVED AN INHALER MEDICATION DURING THE NIGHT, PT RESPONDED "YES." WHEN ASKED WHAT THE MEDICATION LOOKED LIKE, PT RESPONDED "I USED A BLUE ONE." THIS RN VERIFIED WITH [facility] THAT PT'S [facility] MEDICATION VERIFIED THAT WAS NOT CURRENT
--- NOTE | 2024-07-05 13:58 | NUR ---
PT HYPERTENSIVE WITH A BP OF 196/89. PT DENIES ANY CP/SOB OR ANY OTHER COMPLAINTS. THIS RN ATTEMPTED TO CONTACT PROVIDER. AWAITING CALL BACK.
[2024-07-05] MEDS ORDERED: Misc. Inhaler INH SCH (17:10)
[2024-07-05] MEDS ORDERED: Sod Ferric Gluc Complx/Sucrose 125 MG in NS 100 ML IV SCH (17:30)
--- NOTE | 2024-07-05 18:25 | NUR ---
SHIFT SUMMARY PT ALERT AND ORIENTED X4. PT C/O A HEADACHE AROUND 1800 AND WAS MEDICATED PER EMAR ORDERS. PT RECIEVED A UNIT OF BLOOD THIS AM FOR A HGB OF 7.3. DR JIMENEZ WOULD LIKE PT TO BE NPO AFTER MIDNIGHT FOR POSSIBLE SCOPE TOMORROW. PT AMBULATED TO THE BATHROOM THROUGHOUT THE SHIFT AND DID COMPLAIN OF A LITTLE LIGHTHEADEDNESS THAT WAS RESOLVED WITH REST. A POWERGLIDE WAS PLACED TO PTS CLARISSA THIS AM. PT DID NOT HAVE ANY SIGNIFICANT MEDICAL CHANGED DURING SHIFT.
--- NOTE | 2024-07-05 19:25 | NUR ---
REPORT TO ANA CORDERO TO ASSUME CARE OF PT.
[2024-07-05] MEDS ORDERED: Mometasone/Formoterol MDI 100/5 mcg 13 GM INH SCH (20:20)
--- NOTE | 2024-07-05 21:04 | NUR ---
ASSUMPTION OF CARE ASSUMED CARE OF THIS PT AT 1900. PT IS ADMITTED FOR GIB, S/P 1 UNIT PRBC. PLAN FOR POSSIBLE SCOPE TOMORROW, 07/06. NPO AT MIDNIGHT TONIGHT FOR THIS. UPON INITIAL ASSESSMENT, PT DENIES PAIN, NO S/S OF ACTIVE BLEEDING PRESENTLY. AFIB - BP ELVATED WITH SBP 150'S. HR 80'S IN AFIB. PT DENIES LIGHTHEADNESS, CHEST PAIN/PRESSURE AT THIS TIME. CONTINENT OF URINE. ABLE TO TRANSFER TO BEDSIDE COMMODE WITH NO TOUCH/SBA. LLE WOUND - DSG CLEAN DRY AND INTACT. PATIENT IS ABLE TO USE CALL LIGHT APPROPRIATELY AND ADEQUATELY EXPRESS HER NEEDS.
[2024-07-06] VITALS (8 sets, daily range): BP systolic 121–189; BP diastolic 71–110
[2024-07-06 04:13] LABS: Hematocrit 26.1 % (33.0-51.0); Hemoglobin 8.1 g/dL (11.5-16.0); Mean Corpuscular HGB 27.6 pg (26.0-34.0); Mean Corpuscular Volume 89 fL (80-100); Mean Platelet Volume 9.4 fL (9.1-12.4); Platelet Count 265 K/mm3 (150-400); RDW Coefficient Variation 18.4 % (11.7-14.2); RDW Standard Deviation 55.7 fL (35.1-46.3); Red Blood Cell Count 2.94 M/mm3 (3.80-5.20); White Blood Cell Count 6.63 K/mm3 (4.00-11.30)
[2024-07-06 04:36] LABS: Bun/Creatinine Ratio 10.5 (12.0-20.0); Calcium, Blood 7.9 mg/dL (8.5-10.1); Creatinine, Blood 1.14 mg/dL (0.40-1.00)
--- NOTE | 2024-07-06 06:11 | NUR ---
SHIFT SUMMARY PT HAD AN OVERALL UNEVENTFUL NIGHT. UP TO BEDSIDE COMMODE A COUPLE TIMES THROUGHOUT THE NIGHT. DENIES PAIN. COOPERATIVE WITH CARES. VITALLY STABLE. NO ACUTE CHANGES. NO S/S GI BLEED OVERNIGHT.
--- NOTE | 2024-07-06 18:21 | NUR ---
SHIFT SUMMARY NEURO:PT ALERT AND ORIENTED X4 THROUGHOUT SHIFT. NO CHANGES CARDIAC: PT REMAINED RUEL THROUGHOUT SHIFT. NO COMPLAINTS OF CP, SOB, AND DENIED AND DIZZINESS WITH AMBULATION. RESP: LUNG SOUNDS CLEAR THROUGHOUT. DENIES ANY SOB. GI/: PT DID NOT HAVE A BOWEL MOVEMENT TODAY. PT AMBULATED TO THE BATHROOM WITH NO COMPLAINTS. CLEAR YELLOW URINE THROUGHOUT SHIFT SKIN: NEW DRESSING APPLIED TO PTS WOUND ON LLE. LESS REDNESS NOTICED TODAY DR JIMENEZ CAME AND SAW PT THIS AM. PT STATED TO HIM THAT SHE HAD A BOWEL MOVEMENT LAST NIGHT THAT WAS NOT DARK BEFORE. DR JIMENEZ WOULD LIKE TO MONITOR H&H OVERNIGHT AND REEVALUATE IN THE MORNING. PT PLACED ON A REGULAR DIET. NO OTHER SIGNIFICANT CHANGES HAPPENED DURING SHIFT.
--- NOTE | 2024-07-06 21:44 | NUR ---
ASSUMPTION OF CARE ASSUMED CARE OF THIS PT AT 1900. GIB - H&H STABLE, CONTINUE TO MONITOR. POSSIBLE DISCHARGE TOMORROW. PROTONIX BID. 1 BM THIS EVENING, NO S/S BLEEDING. PT IS VITALLY STABLE AND ABLE TO APPROPRIATELY EXPRESS HER NEEDS. CALL LIGHT WITHIN REACH.
[2024-07-06] MEDS ORDERED: HydrALAZINE HCl 20 MG / ML 1ML Vial IV PRN (23:20)
[2024-07-07] VITALS (13 sets, daily range): BP systolic 103–202; BP diastolic 64–158
[2024-07-07 06:19] LABS: BASOPHILS ABSOLUTE AUTO 0.02 K/mm3 (0.00-0.23); BASOPHILS PERCENT AUTO 0 % (0-2); EOSINOPHILS ABSOLUTE AUTO 0.22 K/mm3 (0.00-0.68); EOSINOPHILS PERCENT AUTO 3 % (0-6); Hematocrit 27.5 % (33.0-51.0); Hemoglobin 8.5 g/dL (11.5-16.0); IMMATURE GRAN ABSOLUTE AUTO 0.07 K/mm3 (0.00-0.10); IMMATURE GRAN PERCENT AUTO 1 % (0-1); LYMPHOCYTES ABSOLUTE AUTO 1.32 K/mm3 (0.84-5.20); LYMPHOCYTES PERCENT AUTO 16 % (21-46); MONOCYTES ABSOLUTE AUTO 0.54 K/mm3 (0.16-1.47); MONOCYTES PERCENT AUTO 7 % (4-13); Mean Corpuscular HGB 27.7 pg (26.0-34.0); Mean Corpuscular HGB Conc 30.9 g/dL (31.5-36.5); Mean Corpuscular Volume 90 fL (80-100); Mean Platelet Volume 10.2 fL (9.1-12.4); NEUTROPHILS ABSOLUTE AUTO 6.19 K/mm3 (1.96-9.15); NEUTROPHILS PERCENT AUTO 74 % (41-73); Platelet Count 274 K/mm3 (150-400); RDW Standard Deviation 57.5 fL (35.1-46.3); Red Blood Cell Count 3.07 M/mm3 (3.80-5.20); White Blood Cell Count 8.36 K/mm3 (4.00-11.30)
--- NOTE | 2024-07-07 06:24 | NUR ---
SHIFT SUMMARY HTN THROUGHOUT THE NIGHT. SBP > 180. HYDRALAZINE ORDERED. BP LOWERING CAUSED PT TO BECOME DIZZY AND NAUSEOUS FOR A BRIEF PERIOD OF TIME, BUT PT REPORTS FEELING BETTER. H&H DONE STAT THIS AM. RESULTS PENDING. NO S/S ACTIVE BLEED AT THIS TIME.
[2024-07-07 06:37] LABS: Bun/Creatinine Ratio 10.3 (12.0-20.0); Calcium, Blood 7.8 mg/dL (8.5-10.1); Creatinine, Blood 1.07 mg/dL (0.40-1.00); Potassium, Blood 4.4 mmol/L (3.5-5.5)
[2024-07-07] MEDS ORDERED: FEROSUL325 M1 PO (13:43)
[2024-07-07] MEDS ORDERED: ELIQUIS5 M2 PO (13:44)
--- NOTE | 2024-07-07 14:43 | NUR ---
DISCHARGE SUMMARY PT [id number]. VSS. DISCHARGE PAPERWORK AND MEDICATIONS REVIEWED W/ PT. pT VERBALIZED UNDERSTANDING TO NOT RESTART ELIQUIS UNTIL PAPERWORK STATED DATE. PT VERBALIZED UNDERSTANDING OF FOLLOWUP APPTS. CALL MADE TO MAJO IN [place] TO ESTABLISH NEW PROVIDER FOR PT AND APPT MADE. IV REMOVED. POWERGLIDE REMOVED. TELEMETRY REMOVED. PT HELPED DRESS IN HOME CLOTHING. PT WHEELED WITH PERSONAL BELONGINGS TO SON'S PRIVATE VEHICLE.
== END 2024-07-07 14:33 | disposition home or self-care (01) | DRG 254 ==
LOC: ER 10:05 → PCU 13:44
PROVIDERS: Emergency Medicine; Family Medicine; ADMIT Internal Medicine
PROC: 30233N1 Transfusion of Nonautologous Red Blood Cells into Peripheral Vein, Percutaneous Approach (ICD-10-PCS; principal; 2024-07-04)
DX: K92.1 Melena (principal); D50.9 Iron deficiency anemia, unspecified; I48.91 Unspecified atrial fibrillation; I25.10 Atherosclerotic heart disease of native coronary artery without angina pectoris; J44.9 Chronic obstructive pulmonary disease, unspecified; F41.9 Anxiety disorder, unspecified; F32.A Depression, unspecified; E78.5 Hyperlipidemia, unspecified; M10.9 Gout, unspecified; N18.30 Chronic kidney disease, stage 3 unspecified; M54.9 Dorsalgia, unspecified; G43.909 Migraine, unspecified, not intractable, without status migrainosus; I12.9 Hypertensive chronic kidney disease with stage 1 through stage 4 chronic kidney disease, or unspecified chronic kidney disease; Z95.5 Presence of coronary angioplasty implant and graft; Z95.1 Presence of aortocoronary bypass graft; Z79.01 Long term (current) use of anticoagulants; I25.2 Old myocardial infarction; Z87.891 Personal history of nicotine dependence; Z86.73 Personal history of transient ischemic attack (TIA), and cerebral infarction without residual deficits; Z90.49 Acquired absence of other specified parts of digestive tract; Z98.890 Other specified postprocedural states; Z98.51 Tubal ligation status; Z79.899 Other long term (current) drug therapy
CPT/HCPCS: 36415; 36430; 80048; 80053; 82272; 82728; 83540; 83550; 85014; 85018; 85025; 85027; 85610; 85730; 86850; 86900; 86901; 86923; 93005; 93010; 94640; 94664; 94760; 94762; 96374; 96375; 99285-25; A9270; J0360; J2405; J2470; J2916; J7030; J7040; P9016

== ENCOUNTER 2024-07-21 01:59 | Day surgery (SDC) | payer MEDICARE, OTHER ==
[~2024-07-21 01:59] MED LIST changes: +ELIQUIS5 M2 PO
== END 2024-07-21 23:33 | disposition home or self-care (01) ==
LOC: WOUND 01:59
DX: L97.822 Non-pressure chronic ulcer of other part of left lower leg with fat layer exposed (principal); I12.9 Hypertensive chronic kidney disease with stage 1 through stage 4 chronic kidney disease, or unspecified chronic kidney disease; N18.32 Chronic kidney disease, stage 3b; R41.89 Other symptoms and signs involving cognitive functions and awareness
CPT/HCPCS: G0463

== ENCOUNTER 2024-08-08 07:42 | Day surgery (SDC) | payer MEDICARE, OTHER ==
[~2024-08-08] VITALS: Ht 157.5 cm; Wt 58.2 kg
[~2024-08-08 07:42] MED LIST changes: +Lactated Ringer's 1,000 ML IV ONE; +MEMA5TAB
[2024-08-08] MEDS ORDERED: propofoL 50 ML IV ONE (07:49)
[2024-08-08 09:07] VITALS: BP 121/80
== END 2024-08-08 09:04 | disposition home or self-care (01) ==
LOC: ORSCSDS 07:42
PROVIDERS: Internal Medicine Gastroenterology
PROC: 0DJD8ZZ Inspection of Lower Intestinal Tract, Via Natural or Artificial Opening Endoscopic (ICD-10-PCS; principal; 2024-08-08 07:45)
PROC: 0D578ZZ Destruction of Stomach, Pylorus, Via Natural or Artificial Opening Endoscopic (ICD-10-PCS; principal; 2024-08-08 07:45)
DX: D50.9 Iron deficiency anemia, unspecified (principal); K92.1 Melena; K44.9 Diaphragmatic hernia without obstruction or gangrene; K57.30 Diverticulosis of large intestine without perforation or abscess without bleeding; K31.819 Angiodysplasia of stomach and duodenum without bleeding; I25.10 Atherosclerotic heart disease of native coronary artery without angina pectoris; J44.9 Chronic obstructive pulmonary disease, unspecified; I48.91 Unspecified atrial fibrillation; Z79.01 Long term (current) use of anticoagulants; Z86.718 Personal history of other venous thrombosis and embolism; Z87.891 Personal history of nicotine dependence; I12.9 Hypertensive chronic kidney disease with stage 1 through stage 4 chronic kidney disease, or unspecified chronic kidney disease; N18.9 Chronic kidney disease, unspecified; I25.2 Old myocardial infarction; Z79.899 Other long term (current) drug therapy
CPT/HCPCS: J2704; J7120

== ENCOUNTER → 2024-11-20 | Outpatient (CLI) | payer MEDICARE, OTHER ==
[~2024-11-20] MED LIST changes: -Lactated Ringer's 1,000 ML IV ONE
== END ==
LOC: LAB SHORT 18:53 → LAB 18:53
DX: S81.802A Unspecified open wound, left lower leg, initial encounter (principal)
CPT/HCPCS: 87070; 87077; 87186; 87205

== ENCOUNTER 2025-01-10 15:54 | Emergency (ER) | payer MEDICARE, OTHER ==
[~2025-01-10] VITALS: Ht 157.5 cm; Wt 61.2 kg
[2025-01-10 16:13] VITALS: BP 102/70
[2025-01-10] MEDS ORDERED: Cephalexin Monohydrate 500 MG Cap PO ONE (16:50)
[2025-01-10] MEDS ORDERED: CEPH500 PO (16:52)
[2025-01-10] MEDS ORDERED: NYSTRIT TOP (16:52)
== END 2025-01-10 17:04 | disposition home or self-care (01) ==
LOC: ER 15:54
DX: L03.314 Cellulitis of groin (principal); B37.2 Candidiasis of skin and nail; L22 Diaper dermatitis; J44.9 Chronic obstructive pulmonary disease, unspecified; I48.91 Unspecified atrial fibrillation; I25.2 Old myocardial infarction; Z95.5 Presence of coronary angioplasty implant and graft; Z87.891 Personal history of nicotine dependence; Z79.01 Long term (current) use of anticoagulants; Z79.51 Long term (current) use of inhaled steroids; Z79.899 Other long term (current) drug therapy; Z59.89 Other problems related to housing and economic circumstances
CPT/HCPCS: 99282; A9270

== ENCOUNTER 2025-01-30 03:53 | Day surgery (SDC) | payer MEDICARE, OTHER ==
[~2025-01-30 03:53] MED LIST changes: +NYSTRIT TOP
== END 2025-01-30 23:09 | disposition home or self-care (01) ==
LOC: WOUND 03:53
DX: I87.322 Chronic venous hypertension (idiopathic) with inflammation of left lower extremity (principal); I87.2 Venous insufficiency (chronic) (peripheral); I10 Essential (primary) hypertension; I25.5 Ischemic cardiomyopathy; K21.9 Gastro-esophageal reflux disease without esophagitis; Z87.891 Personal history of nicotine dependence
CPT/HCPCS: G0463

== ENCOUNTER 2025-02-15 10:09 | Emergency (ER) | payer MEDICARE, OTHER ==
[~2025-02-15] VITALS: Ht 157.5 cm; Wt 56.7 kg
[~2025-02-15 10:09] MED LIST changes: -MEMA5TAB; +MEMA5TAB PO
[2025-02-15 10:19] VITALS: BP 167/86
[2025-02-15] MEDS ORDERED: Carvedilol12.5 MG PO (10:35)
[2025-02-15] MEDS ORDERED: Cephalexin Monohydrate 500 MG Cap PO ONE (11:00)
[2025-02-15] MEDS ORDERED: CEPH500 PO (11:16)
[2025-02-15] MEDS ORDERED: ALEVAZOL56.7 G1 TOP (11:16)
[2025-02-15] MEDS ORDERED: ZINC OXIDE57 GM TOP (11:16)
[2025-02-15] MEDS ORDERED: HYDCOR2.5C PR (11:16)
[2025-02-15] MEDS ORDERED: HYDROCORTISONE30 GM EXT (11:32)
== END 2025-02-15 11:45 | disposition home or self-care (01) ==
LOC: ER 10:09
DX: L03.115 Cellulitis of right lower limb (principal); L30.4 Erythema intertrigo; I48.91 Unspecified atrial fibrillation; K21.9 Gastro-esophageal reflux disease without esophagitis; I12.9 Hypertensive chronic kidney disease with stage 1 through stage 4 chronic kidney disease, or unspecified chronic kidney disease; N18.2 Chronic kidney disease, stage 2 (mild); J44.9 Chronic obstructive pulmonary disease, unspecified; E78.5 Hyperlipidemia, unspecified; I25.2 Old myocardial infarction; Z87.891 Personal history of nicotine dependence; Z86.73 Personal history of transient ischemic attack (TIA), and cerebral infarction without residual deficits; Z79.899 Other long term (current) drug therapy; Z79.51 Long term (current) use of inhaled steroids
CPT/HCPCS: 99282; A9270

== ENCOUNTER 2025-02-24 20:30 | Emergency (ER) | payer MEDICARE, OTHER ==
[~2025-02-24] VITALS: Ht 157.5 cm; Wt 65.8 kg
[~2025-02-24 20:30] MED LIST changes: +ALEVAZOL56.7 G1 TOP; +Carvedilol12.5 MG PO; +HYDCOR2.5C PR; +HYDROCORTISONE30 GM EXT; +ZINC OXIDE57 GM TOP
[2025-02-24 20:43] VITALS: BP 162/80
[2025-02-25] MEDS ORDERED: ZINC OXIDE57 GM TOP (17:22)
[2025-02-25] MEDS ORDERED: ALEVAZOL56.7 G1 TOP (17:22)
== END 2025-02-24 23:55 | disposition left against medical advice (07) ==
LOC: ER 20:30
DX: R21 Rash and other nonspecific skin eruption (principal); Z53.29 Procedure and treatment not carried out because of patient's decision for other reasons

== ENCOUNTER 2025-02-25 15:34 | Emergency (ER) | payer MEDICARE, OTHER ==
[~2025-02-25] VITALS: Ht 157.5 cm; Wt 56.7 kg
[2025-02-25 15:47] VITALS: BP 173/100
[2025-02-25] MEDS ORDERED: ZINC OXIDE57 GM TOP (17:22)
[2025-02-25] MEDS ORDERED: ALEVAZOL56.7 G1 TOP (17:22)
== END 2025-02-25 17:30 | disposition home or self-care (01) ==
LOC: ER 15:34
DX: B37.2 Candidiasis of skin and nail (principal); I48.91 Unspecified atrial fibrillation; K21.9 Gastro-esophageal reflux disease without esophagitis; I12.9 Hypertensive chronic kidney disease with stage 1 through stage 4 chronic kidney disease, or unspecified chronic kidney disease; N18.2 Chronic kidney disease, stage 2 (mild); G43.909 Migraine, unspecified, not intractable, without status migrainosus; J44.9 Chronic obstructive pulmonary disease, unspecified; E78.5 Hyperlipidemia, unspecified; I25.2 Old myocardial infarction; Z86.73 Personal history of transient ischemic attack (TIA), and cerebral infarction without residual deficits; Z87.891 Personal history of nicotine dependence; Z79.899 Other long term (current) drug therapy
CPT/HCPCS: 99282

== ENCOUNTER 2025-03-10 21:21 | Emergency (ER) | payer MEDICARE, OTHER ==
[~2025-03-10] VITALS: Ht 157.5 cm; Wt 61.2 kg
[2025-03-10 22:33] LABS: BASOPHILS ABSOLUTE AUTO 0.03 K/mm3 (0.00-0.23); BASOPHILS PERCENT AUTO 0 % (0-2); EOSINOPHILS ABSOLUTE AUTO 0.35 K/mm3 (0.00-0.68); EOSINOPHILS PERCENT AUTO 4 % (0-6); Hemoglobin 10.9 g/dL (11.5-16.0); IMMATURE GRAN ABSOLUTE AUTO 0.03 K/mm3 (0.00-0.10); IMMATURE GRAN PERCENT AUTO 0 % (0-1); LYMPHOCYTES ABSOLUTE AUTO 1.77 K/mm3 (0.84-5.20); LYMPHOCYTES PERCENT AUTO 22 % (21-46); MONOCYTES ABSOLUTE AUTO 0.57 K/mm3 (0.16-1.47); MONOCYTES PERCENT AUTO 7 % (4-13); Mean Corpuscular HGB 30.4 pg (26.0-34.0); Mean Corpuscular HGB Conc 31.1 g/dL (31.5-36.5); Mean Corpuscular Volume 98 fL (80-100); Mean Platelet Volume 9.9 fL (9.1-12.4); NEUTROPHILS ABSOLUTE AUTO 5.37 K/mm3 (1.96-9.15); NEUTROPHILS PERCENT AUTO 66 % (41-73); Platelet Count 284 K/mm3 (150-400); RDW Coefficient Variation 14.4 % (11.7-14.2); RDW Standard Deviation 51.8 fL (35.1-46.3); Red Blood Cell Count 3.58 M/mm3 (3.80-5.20); White Blood Cell Count 8.12 K/mm3 (4.00-11.30)
[2025-03-10 22:53] LABS: Albumin, Blood 2.3 g/dL (3.4-5.0); Albumin/Globulin Ratio 0.7 (0.8-1.8); Bilirubin, Total 0.3 mg/dL (0.1-1.0); Bun/Creatinine Ratio 10.4 (12.0-20.0); Calcium, Blood 8.2 mg/dL (8.5-10.1); Creatinine, Blood 0.96 mg/dL (0.40-1.00); Globulin, Blood 3.5 g/dL (2.2-4.0); Potassium, Blood 3.8 mmol/L (3.5-5.5); Total Protein, Blood 5.8 g/dL (6.4-8.2)
[2025-03-11 01:00] VITALS: BP 167/96
[2025-03-11] MEDS ORDERED: Trimethoprim/Sulfamethoxazole DS Tab PO ONE (01:05)
[2025-03-11] MEDS ORDERED: BETASEPT118 M7 TOP (01:08)
[2025-03-11] MEDS ORDERED: BACTRIM DS TAB1 EAC1 PO (01:08)
== END 2025-03-11 01:17 | disposition home or self-care (01) ==
LOC: ER 21:21
PROVIDERS: Student in an Organized Health Care Education/Training Program
DX: L03.116 Cellulitis of left lower limb (principal); J44.9 Chronic obstructive pulmonary disease, unspecified; I25.2 Old myocardial infarction; I48.91 Unspecified atrial fibrillation; Z87.891 Personal history of nicotine dependence; Z79.899 Other long term (current) drug therapy; Z79.51 Long term (current) use of inhaled steroids
CPT/HCPCS: 80053; 85025; 99283; A9270

== ENCOUNTER 2025-07-02 10:45 | Emergency (ER) | payer MEDICARE, OTHER ==
[~2025-07-02] VITALS: Ht 157.5 cm; Wt 49.4 kg
[~2025-07-02 10:45] MED LIST changes: +BACTRIM DS TAB1 EAC1 PO; +BETASEPT118 M7 TOP
[2025-07-02 11:47] LABS: BASOPHILS ABSOLUTE AUTO 0.03 K/mm3 (0.00-0.23); BASOPHILS PERCENT AUTO 0 % (0-2); EOSINOPHILS ABSOLUTE AUTO 0.40 K/mm3 (0.00-0.68); EOSINOPHILS PERCENT AUTO 5 % (0-6); Hematocrit 31.9 % (33.0-51.0); Hemoglobin 10.4 g/dL (11.5-16.0); IMMATURE GRAN ABSOLUTE AUTO 0.03 K/mm3 (0.00-0.10); IMMATURE GRAN PERCENT AUTO 0 % (0-1); LYMPHOCYTES ABSOLUTE AUTO 1.30 K/mm3 (0.84-5.20); LYMPHOCYTES PERCENT AUTO 17 % (21-46); MONOCYTES ABSOLUTE AUTO 0.53 K/mm3 (0.16-1.47); MONOCYTES PERCENT AUTO 7 % (4-13); Mean Corpuscular HGB Conc 32.6 g/dL (31.5-36.5); Mean Corpuscular Volume 99 fL (80-100); NEUTROPHILS ABSOLUTE AUTO 5.28 K/mm3 (1.96-9.15); NEUTROPHILS PERCENT AUTO 70 % (41-73); NRBC ABSOLUTE 0.00 K/mm3 (0.00-0.02); NRBC Auto 0.0 /100 WBC (0.0-0.2); Platelet Count 418 K/mm3 (150-400); RDW Coefficient Variation 15.9 % (11.7-14.2); RDW Standard Deviation 58.5 fL (35.1-46.3)
[2025-07-02 12:16] LABS: Magnesium, Blood 1.6 mg/dL (1.6-2.4)
[2025-07-02 12:22] LABS: Alanine Aminotransfer (ALT/SGP 15.0 U/L (12-78); Albumin, Blood 2.5 g/dL (3.4-5.0); Albumin/Globulin Ratio 0.7 (0.8-1.8); Anion Gap 9.0 mmol/L (3-11); Aspartate Aminotrans (AST/SGOT 27.0 U/L (12-37); Bilirubin, Total 0.4 mg/dL (0.1-1.0); Blood Urea Nitrogen 5.0 mg/dL (8-24); CO2, Blood 23.0 mmol/L (21-32); Calcium, Blood 7.9 mg/dL (8.5-10.1); Chloride, Blood 109.0 mmol/L (98-108); Creatinine, Blood 1.36 mg/dL (0.40-1.00); Globulin, Blood 3.8 g/dL (2.2-4.0); Glucose, Blood 94.0 mg/dL (70-99); Potassium, Blood 3.5 mmol/L (3.5-5.5); Sodium, Blood 137.0 mmol/L (136-145); Total Protein, Blood 6.3 g/dL (6.4-8.2)
[2025-07-02 13:18] LABS: Source, Urine Clean Catch
[2025-07-02 13:28] LABS: Bilirubin, Urine Neg (Neg); Glucose Qualitative, Urine Neg (Neg); Ketones, Urine Neg (Neg); Leukocyte Esterase, Urine Neg (Neg); Protein, Urine 1+ (Neg); Specific Gravity, Urine 1.015 (1.003-1.022); Urobilinogen, Urine NORM (Normal)
[2025-07-02 13:30] VITALS: BP 181/89
[2025-07-02 13:36] LABS: Color, Urine Pale Yellow (P-Yellow)
== END 2025-07-02 13:55 | disposition home or self-care (01) ==
LOC: ER 10:45
PROVIDERS: Student in an Organized Health Care Education/Training Program
DX: R53.1 Weakness (principal); I48.91 Unspecified atrial fibrillation; I25.10 Atherosclerotic heart disease of native coronary artery without angina pectoris; I12.9 Hypertensive chronic kidney disease with stage 1 through stage 4 chronic kidney disease, or unspecified chronic kidney disease; N18.2 Chronic kidney disease, stage 2 (mild); I25.2 Old myocardial infarction; J44.9 Chronic obstructive pulmonary disease, unspecified; E78.5 Hyperlipidemia, unspecified; K21.9 Gastro-esophageal reflux disease without esophagitis; Z87.440 Personal history of urinary (tract) infections; Z86.73 Personal history of transient ischemic attack (TIA), and cerebral infarction without residual deficits; Z87.891 Personal history of nicotine dependence; Z79.2 Long term (current) use of antibiotics; Z79.01 Long term (current) use of anticoagulants; Z79.899 Other long term (current) drug therapy
CPT/HCPCS: 36415; 80053; 83735; 85025; 93005; 93010; 99284-25

== ENCOUNTER 2025-09-03 02:00 | Observation (INO) | payer MEDICARE, OTHER ==
[2025-09-03] VITALS (7 sets, daily range): BP systolic 155–179; BP diastolic 77–90
[~2025-09-03] VITALS: Ht 157.5 cm; Wt 48.9 kg
[~2025-09-03 02:00] MED LIST changes: +TRELEGY ELLIPT1 EAC1 INH; -TRELEGY ELLIPT1 EACH INH
[2025-09-03] MEDS ORDERED: Ondansetron HCl 2 MG / ML 2ML Vial IV PRN ×2 (02:55→19:00)
[2025-09-03 03:29] LABS: BASOPHILS ABSOLUTE AUTO 0.03 K/mm3 (0.00-0.23); BASOPHILS PERCENT AUTO 0 % (0-2); EOSINOPHILS ABSOLUTE AUTO 0.37 K/mm3 (0.00-0.68); EOSINOPHILS PERCENT AUTO 4 % (0-6); Hematocrit 22.8 % (33.0-51.0); Hemoglobin 6.7 g/dL (11.5-16.0); IMMATURE GRAN ABSOLUTE AUTO 0.04 K/mm3 (0.00-0.10); IMMATURE GRAN PERCENT AUTO 0 % (0-1); LYMPHOCYTES ABSOLUTE AUTO 1.42 K/mm3 (0.84-5.20); LYMPHOCYTES PERCENT AUTO 14 % (21-46); MONOCYTES ABSOLUTE AUTO 0.83 K/mm3 (0.16-1.47); MONOCYTES PERCENT AUTO 8 % (4-13); Mean Corpuscular HGB Conc 29.4 g/dL (31.5-36.5); Mean Corpuscular Volume 91 fL (80-100); NEUTROPHILS ABSOLUTE AUTO 7.14 K/mm3 (1.96-9.15); NEUTROPHILS PERCENT AUTO 73 % (41-73); NRBC ABSOLUTE 0.02 K/mm3 (0.00-0.02); NRBC Auto 0.2 /100 WBC (0.0-0.2); Platelet Count 363 K/mm3 (150-400); RDW Coefficient Variation 16.0 % (11.7-14.2); RDW Standard Deviation 53.6 fL (35.1-46.3)
[2025-09-03 03:49] LABS: Alanine Aminotransfer (ALT/SGP 17.0 U/L (12-78); Albumin, Blood 2.6 g/dL (3.4-5.0); Albumin/Globulin Ratio 0.8 (0.8-1.8); Anion Gap 5.0 mmol/L (3-11); Aspartate Aminotrans (AST/SGOT 17.0 U/L (12-37); Bilirubin, Total 0.4 mg/dL (0.1-1.0); Blood Urea Nitrogen 17.0 mg/dL (8-24); CO2, Blood 26.0 mmol/L (21-32); Calcium, Blood 8.0 mg/dL (8.5-10.1); Chloride, Blood 108.0 mmol/L (98-108); Creatinine, Blood 1.37 mg/dL (0.40-1.00); Globulin, Blood 3.4 g/dL (2.2-4.0); Glucose, Blood 98.0 mg/dL (70-99); Potassium, Blood 4.0 mmol/L (3.5-5.5); Sodium, Blood 135.0 mmol/L (136-145); Total Protein, Blood 6.0 g/dL (6.4-8.2)
[2025-09-03] MEDS ORDERED: NS 1,000 ML IV SCH ×2 (05:20→07:50)
[2025-09-03 05:37] LABS: Magnesium, Blood 2.0 mg/dL (1.6-2.4); Phosphorus, Blood 3.6 mg/dL (2.5-4.9)
[2025-09-03 06:07] LABS: Source, Urine Clean Catch
[2025-09-03 06:11] LABS: Bilirubin, Urine Neg (Neg); Glucose Qualitative, Urine Neg (Neg); Ketones, Urine Neg (Neg); Leukocyte Esterase, Urine 1+ (Neg); Protein, Urine Neg (Neg); Specific Gravity, Urine 1.015 (1.003-1.022); Urobilinogen, Urine NORM (Normal)
[2025-09-03 06:15] LABS: Color, Urine Yellow (P-Yellow)
[2025-09-03 06:20] LABS: Red Blood Cells, Urine 0-2 /hpf (0-2)
[2025-09-03] MEDS ORDERED: FLU VACC TS2025(65UP)/MF59C/PF 45 MCG/0.5 ML SYRINGE IM SCH (07:55)
[2025-09-03 09:15] LABS: Ferritin, Serum 6.0 ng/mL (8-252); Total Iron Binding Capacity 300.0 ug/dL (250-450)
[2025-09-03] MEDS ORDERED: Iron Dextran 50 MG / ML 2ML Vial IV ONE (12:00)
[2025-09-03] MEDS ORDERED: Iron Dextran 975 MG in NS 250 ML IV ONE (13:00)
[2025-09-03 13:04] LABS: Hematocrit 26.1 % (33.0-51.0); Hemoglobin 7.8 g/dL (11.5-16.0)
[2025-09-03] MEDS ORDERED: Celexa20 MG PO (13:24)
[2025-09-03] MEDS ORDERED: POTASSIUM99 M3 PO (13:28)
[2025-09-03] MEDS ORDERED: Albuterol 2.5 MG/3 ML VIAL INH PRN (13:45)
[2025-09-03] MEDS ORDERED: Formoterol/Mometasone MDI 5/100 mcg 13 GM INH SCH (13:55)
[2025-09-03] MEDS ORDERED: Ipratropium Bromide INH 0.02% 0.5 mg/2.5ML Vial INH SCH (14:00)
[2025-09-03] MEDS ORDERED: Tiotropium Bromide 2.5 MCG/ACT MIST INHAL (10 ACT/4 GM) INH SCH (16:00)
--- NOTE | 2025-09-03 16:44 | NUR ---
1300- VERBAL FROM [facility] TO DC NPO STATUS AND ORDER CLEAR LIQUID DIET.
--- NOTE | 2025-09-03 16:46 | NUR ---
0900- PT TO MEDICAL FLOOR IN STABLE CONDITION WITH BLOOD INFUSING FROM ER WITH NO ISSUES.
--- NOTE | 2025-09-03 16:47 | NUR ---
SUMMARY- AAOX4. X1 ASSIST TO BSC. PT ON RA. NO EVIDENCE OF BLEEDING THIS SHIFT. PT DENIES ANY BLOODY STOOLS. PT ADVANCED TO CLEAR LIQUID DIET-PT TOLERATING WELL. NO ACUTE EVENTS THIS SHIFT.
--- NOTE | 2025-09-03 18:39 | NUR ---
1835- VERBAL TELEPHONE ORDER FROM [facility] FOR ZOFRAN 4MG Q 8 PRN FOR NAUSEA.
[2025-09-03 19:32] LABS: Hematocrit 25.2 % (33.0-51.0); Hemoglobin 7.7 g/dL (11.5-16.0)
[2025-09-04] MEDS ORDERED: HydrALAZINE HCl 20 MG / ML 1ML Vial IV PRN (00:45)
[2025-09-04 01:15] VITALS: BP 174/83
[2025-09-04 01:55] LABS: Hematocrit 29.6 % (33.0-51.0); Hemoglobin 9.1 g/dL (11.5-16.0)
[2025-09-04 03:01] VITALS: BP 172/82
--- NOTE | 2025-09-04 05:53 | NUR ---
SHIFT SUMMARY HGB 7.7 AT 1900 ON 09/03, THEN 9.1 ON 09/04 AT 0100. DICUSSED HTN AND INSOMNIA WITH PROVIDER, MEDICATIONS GIVEN PRESCRIBED, THOUGH PT SLEPT <3 HRS AND CONTINUES TO DISPLAY HTN DESPITE THESE MEASURES. TRANSIENT NAUSEA IMPROVED WITH ANTIEMETIC PER EMAR. CONTINUES TO HAVE WAXING/WANING LIGHTHEADEDNESS. CONTINUES TO HAVE SCANT LOOSE BMS THAT ARE NONBLOODY AND NONBILIOUS, WELL NOCTURIA. TELEMETRY SHOWS NSR IN 80s. PATENT IV IN RAC AND L WRIST. TAKING MEDS WHOLE WITH WATER. REMAINS A&OX4. PLAN FOR UPPER ENDOSCOPY TODAY. HAS REMAINED NPO SINCE MIDNIGHT.
[2025-09-04 07:16] VITALS: BP 140/86
[2025-09-04 11:17] VITALS: BP 127/70
[2025-09-04 11:35] LABS: Hematocrit 24.6 % (33.0-51.0); Hemoglobin 7.7 g/dL (11.5-16.0)
[2025-09-04 14:20] LABS: Hematocrit 27.5 % (33.0-51.0); Hemoglobin 8.5 g/dL (11.5-16.0)
[2025-09-04] MEDS ORDERED: FERSU300 PO (15:15)
--- NOTE | 2025-09-04 16:38 | NUR ---
DISCHARGE NOTE PATIENT AND SON IN ROOM, WITH DR RUFF AND RN DISCUSSING DISCHARGE PLANS, MEDICATOINS AND FOLLOW UP. PATIENT IND DRESSED SELF, WHEELED OUT BY MEDICAL STAFF AND DENIED ANY QUESTIONS AT THIS TIME.
== END 2025-09-04 16:50 | disposition home or self-care (01) ==
LOC: ER 02:00 → MEDS 02:01
PROVIDERS: Emergency Medicine; Family Medicine; ADMIT Internal Medicine
DX: K52.9 Noninfective gastroenteritis and colitis, unspecified (principal); D63.8 Anemia in other chronic diseases classified elsewhere; I48.91 Unspecified atrial fibrillation; J44.9 Chronic obstructive pulmonary disease, unspecified; I25.10 Atherosclerotic heart disease of native coronary artery without angina pectoris; I12.9 Hypertensive chronic kidney disease with stage 1 through stage 4 chronic kidney disease, or unspecified chronic kidney disease; E78.5 Hyperlipidemia, unspecified; N18.9 Chronic kidney disease, unspecified; D50.9 Iron deficiency anemia, unspecified; Z87.891 Personal history of nicotine dependence; Z79.01 Long term (current) use of anticoagulants; Z79.899 Other long term (current) drug therapy
CPT/HCPCS: 36415; 36430; 74177; 80053; 81001; 82607; 82728; 82746; 82947; 83540; 83550; 83690; 83735; 84100; 84484; 85014; 85018; 85025; 86850; 86900; 86901; 86923; 87077; 87086; 87186; 93005; 93010; 94640; 94664; 94760; 96361; 96365; 96366; 96374-59; 96375; 96376; 99285-25; A9270; G0378; J0360; J1750; J2405; J7030; J7050; P9016; Q9967

== ENCOUNTER 2025-09-13 16:07 | Emergency (ER) | payer MEDICARE, OTHER ==
[~2025-09-13] VITALS: Ht 157.5 cm; Wt 49.4 kg
[~2025-09-13 16:07] MED LIST changes: +FERSU300 PO; +POTASSIUM99 M3 PO
[2025-09-13 16:50] LABS: BASOPHILS ABSOLUTE AUTO 0.03 K/mm3 (0.00-0.23); BASOPHILS PERCENT AUTO 0 % (0-2); EOSINOPHILS ABSOLUTE AUTO 0.22 K/mm3 (0.00-0.68); EOSINOPHILS PERCENT AUTO 3 % (0-6); Hematocrit 29.4 % (33.0-51.0); Hemoglobin 8.7 g/dL (11.5-16.0); IMMATURE GRAN ABSOLUTE AUTO 0.05 K/mm3 (0.00-0.10); IMMATURE GRAN PERCENT AUTO 1 % (0-1); LYMPHOCYTES ABSOLUTE AUTO 1.30 K/mm3 (0.84-5.20); LYMPHOCYTES PERCENT AUTO 15 % (21-46); MONOCYTES ABSOLUTE AUTO 0.53 K/mm3 (0.16-1.47); MONOCYTES PERCENT AUTO 6 % (4-13); Mean Corpuscular HGB Conc 29.6 g/dL (31.5-36.5); Mean Corpuscular Volume 97 fL (80-100); NEUTROPHILS ABSOLUTE AUTO 6.43 K/mm3 (1.96-9.15); NEUTROPHILS PERCENT AUTO 75 % (41-73); NRBC ABSOLUTE 0.02 K/mm3 (0.00-0.02); NRBC Auto 0.2 /100 WBC (0.0-0.2); Platelet Count 355 K/mm3 (150-400); RDW Coefficient Variation 22.2 % (11.7-14.2); RDW Standard Deviation 72.0 fL (35.1-46.3)
[2025-09-13 17:13] LABS: Alanine Aminotransfer (ALT/SGP 16.0 U/L (12-78); Albumin, Blood 2.2 g/dL (3.4-5.0); Albumin/Globulin Ratio 0.7 (0.8-1.8); Anion Gap 6.0 mmol/L (3-11); Aspartate Aminotrans (AST/SGOT 13.0 U/L (12-37); Bilirubin, Total 0.3 mg/dL (0.1-1.0); Blood Urea Nitrogen 11.0 mg/dL (8-24); CO2, Blood 29.0 mmol/L (21-32); Calcium, Blood 8.0 mg/dL (8.5-10.1); Chloride, Blood 109.0 mmol/L (98-108); Creatinine, Blood 1.33 mg/dL (0.40-1.00); Globulin, Blood 3.2 g/dL (2.2-4.0); Glucose, Blood 84.0 mg/dL (70-99); Potassium, Blood 3.8 mmol/L (3.5-5.5); Sodium, Blood 140.0 mmol/L (136-145); Total Protein, Blood 5.4 g/dL (6.4-8.2)
[2025-09-13 20:37] LABS: Source, Urine Clean Catch
[2025-09-13 20:57] LABS: Bilirubin, Urine Neg (Neg); Color, Urine Yellow (P-Yellow); Glucose Qualitative, Urine Neg (Neg); Ketones, Urine Neg (Neg); Leukocyte Esterase, Urine 3+ (Neg); Protein, Urine 1+ (Neg); Specific Gravity, Urine 1.015 (1.003-1.022); Urobilinogen, Urine NORM (Normal)
[2025-09-13 21:06] LABS: Red Blood Cells, Urine 0-2 /hpf (0-2); White Blood Cells, Urine 50-100 /hpf (0-5)
[2025-09-13] MEDS ORDERED: CEPH500 PO (21:24)
[2025-09-13 21:25] VITALS: BP 167/90
== END 2025-09-13 21:39 | disposition home or self-care (01) ==
LOC: ER 16:07
PROVIDERS: Physician Assistant
DX: N30.00 Acute cystitis without hematuria (principal); I48.91 Unspecified atrial fibrillation; I12.9 Hypertensive chronic kidney disease with stage 1 through stage 4 chronic kidney disease, or unspecified chronic kidney disease; N18.2 Chronic kidney disease, stage 2 (mild); J44.9 Chronic obstructive pulmonary disease, unspecified; E78.5 Hyperlipidemia, unspecified; K21.9 Gastro-esophageal reflux disease without esophagitis; Z87.891 Personal history of nicotine dependence
CPT/HCPCS: 80053; 81001; 83690; 85025; 87077; 87086; 87186; 93005; 93010; 99284-25; A9270

== ENCOUNTER 2025-11-11 00:51 | Emergency (ER) | payer MEDICARE, OTHER ==
[~2025-11-11] VITALS: Ht 154.9 cm; Wt 54.4 kg
[2025-11-11] MEDS ORDERED: Ondansetron HCl 2 MG / ML 2ML Vial IV ONE (01:50)
[2025-11-11] MEDS ORDERED: Pantoprazole Sodium 40 MG Injection IV ONE (01:50)
[2025-11-11 02:27] LABS: BASOPHILS ABSOLUTE AUTO 0.05 K/mm3 (0.00-0.23); BASOPHILS PERCENT AUTO 0 % (0-2); EOSINOPHILS ABSOLUTE AUTO 0.42 K/mm3 (0.00-0.68); EOSINOPHILS PERCENT AUTO 4 % (0-6); Hematocrit 34.7 % (33.0-51.0); Hemoglobin 10.8 g/dL (11.5-16.0); IMMATURE GRAN ABSOLUTE AUTO 0.04 K/mm3 (0.00-0.10); IMMATURE GRAN PERCENT AUTO 0 % (0-1); LYMPHOCYTES ABSOLUTE AUTO 1.27 K/mm3 (0.84-5.20); LYMPHOCYTES PERCENT AUTO 11 % (21-46); MONOCYTES ABSOLUTE AUTO 0.75 K/mm3 (0.16-1.47); MONOCYTES PERCENT AUTO 6 % (4-13); Mean Corpuscular HGB Conc 31.1 g/dL (31.5-36.5); Mean Corpuscular Volume 98 fL (80-100); NEUTROPHILS ABSOLUTE AUTO 9.19 K/mm3 (1.96-9.15); NEUTROPHILS PERCENT AUTO 79 % (41-73); NRBC ABSOLUTE 0.00 K/mm3 (0.00-0.02); NRBC Auto 0.0 /100 WBC (0.0-0.2); Platelet Count 235 K/mm3 (150-400); RDW Coefficient Variation 17.1 % (11.7-14.2); RDW Standard Deviation 62.7 fL (35.1-46.3)
[2025-11-11 02:57] LABS: Alanine Aminotransfer (ALT/SGP 27.0 U/L (12-78); Albumin, Blood 2.9 g/dL (3.4-5.0); Albumin/Globulin Ratio 0.9 (0.8-1.8); Anion Gap 10.0 mmol/L (3-11); Aspartate Aminotrans (AST/SGOT 25.0 U/L (12-37); Bilirubin, Total 0.3 mg/dL (0.1-1.0); Blood Urea Nitrogen 71.0 mg/dL (8-24); CO2, Blood 25.0 mmol/L (21-32); Calcium, Blood 8.4 mg/dL (8.5-10.1); Chloride, Blood 108.0 mmol/L (98-108); Creatinine, Blood 1.58 mg/dL (0.40-1.00); Globulin, Blood 3.1 g/dL (2.2-4.0); Glucose, Blood 101.0 mg/dL (70-99); Potassium, Blood 5.5 mmol/L (3.5-5.5); Sodium, Blood 137.0 mmol/L (136-145); Total Protein, Blood 6.0 g/dL (6.4-8.2)
[2025-11-11 03:37] LABS: Prothrombin Time Results 12.1 Sec (9.7-11.5)
[2025-11-11 04:06] LABS: Hematocrit 31.3 % (33.0-51.0); Hemoglobin 9.6 g/dL (11.5-16.0)
[2025-11-11 06:17] LABS: Hematocrit 31.7 % (33.0-51.0); Hemoglobin 9.9 g/dL (11.5-16.0)
[2025-11-11 12:00] VITALS: BP 110/68
== END 2025-11-11 12:15 | disposition home or self-care (01) ==
LOC: ER 00:51
PROVIDERS: Emergency Medicine
DX: K92.0 Hematemesis (principal); I12.9 Hypertensive chronic kidney disease with stage 1 through stage 4 chronic kidney disease, or unspecified chronic kidney disease; N18.9 Chronic kidney disease, unspecified; I48.91 Unspecified atrial fibrillation; J44.9 Chronic obstructive pulmonary disease, unspecified; I25.10 Atherosclerotic heart disease of native coronary artery without angina pectoris; I25.2 Old myocardial infarction; Z87.891 Personal history of nicotine dependence; Z95.5 Presence of coronary angioplasty implant and graft; Z79.01 Long term (current) use of anticoagulants; Z79.899 Other long term (current) drug therapy
CPT/HCPCS: 74174; 80053; 83605; 84484; 85014; 85018; 85025; 85610; 86850; 86900; 86901; 93005; 93010; 96374-59; 96375-59; 99285-25; A9270; J2405; J2470; Q9967